=== PATIENT | male | born 1960 | race Caucasian/White ===

== ENCOUNTER 2019-07-13 07:31 | Emergency (ER) | payer OTHER, MEDICAID ==
[~2019-07-13] VITALS: Ht 157.5 cm; Wt 59.4 kg
[2019-07-13 07:45] VITALS: BP_SYST 119
[2019-07-13 08:48] VITALS: BP_SYST 119
== END 2019-07-13 08:48 | disposition home or self-care (01) ==
LOC: SED 07:31
DX: H10.89 Other conjunctivitis (principal)
CPT/HCPCS: 99283

== ENCOUNTER 2019-08-26 08:55 | Inpatient (IN) | payer OTHER, MEDICAID ==
[~2019-08-26] VITALS: Ht 152.4 cm; Wt 64.9 kg
--- NOTE | 2019-08-26 09:22 | NUR ---
Patient to ER bed 5 to gown for evaluation. Side rails up.
[2019-08-26 09:25] VITALS: BP_SYST 128
--- NOTE | 2019-08-26 09:33 | NUR ---
Patient is nonverbal, no visual tracking. Caregivers at bedside. They report patient 2 episodes of vomiting last night, 1 episode this morning, reduced appetite, reduced activity.
--- NOTE | 2019-08-26 09:55 | NUR ---
ER Dr. Turner at bedside examining patient.
[2019-08-26 11:01] LABS: BILIRUBIN,URINE NEGATIVE (NEGATIVE); BLOOD, URINE 3+ (NEGATIVE); COLOR,URINE YELLOW (YELLOW); GLUCOSE,URINE NEGATIVE (NEGATIVE); KETONES,URINE NEGATIVE (NEGATIVE); LEUKOCYTE ESTERASE ,URINE 3+ (NEGATIVE); NITRITE, URINE POSITIVE (NEGATIVE); PROTEIN URINE 2+ (NEGATIVE); UROBILINOGEN,URINE 0.2 (0.2-1.0)
[2019-08-26 11:04] LABS: CLARITY/URINE HAZY (CLEAR)
--- NOTE | 2019-08-26 11:08 | NUR ---
Blood samples hemolyzed, phlebotomy at bedside to redraw.
[2019-08-26 11:09] LABS: BACTERIA,URINE MODERATE /HPF (None Seen); RBC,URINE 80-100 /HPF (0-3); WBC,URINE >100 /HPF (0-3)
[2019-08-26 11:10] LABS: MUCUS,URINE 1+ /LPF (None Seen)
[2019-08-26 11:48] LABS: CALCIUM 9.8 mg/dL (8.4-11.0); POTASSIUM 4.1 mmol/L (3.5-5.1)
[2019-08-26 11:49] LABS: ALBUMIN 2.5 g/dL (3.4-4.8); CREATININE 0.59 mg/dL (0.55-1.30); TOTAL BILIRUBIN 0.7 mg/dL (0.0-1.0)
[2019-08-26 12:06] LABS: HEMATOCRIT 38.9 % (36-54); HEMOGLOBIN 12.8 g/dL (14.0-18.0); MEAN CORPUSCULAR HEMOGLOBIN 30 pg (27-31); MEAN CORPUSCULAR HGB CONC 33 % (32-36); MEAN CORPUSCULAR VOLUME 89 fL (79.0-98.0); PLATELET COUNT (AUTO) 90 K/uL (130-430); RED BLOOD CELL COUNT(AUTO) 4.35 MIL/uL (4.2-6.2); RED CELL DISTRIBUTION WIDTH 15.8 % (9.0-15.0); WHITE BLOOD COUNT (AUTO) 22.5 K/uL (4.8-10.8)
[2019-08-26 12:16] LABS: INR 1.1 (0.80-1.20); PROTHROMBIN TIME 10.7 SECS (9.5-12.5)
[2019-08-26] MEDS ORDERED: POLY17PO4 PO (12:17)
[2019-08-26] MEDS ORDERED: CALC-823 PO (12:17)
[2019-08-26] MEDS ORDERED: TAMS-11 PO (12:17)
[2019-08-26] MEDS ORDERED: LOSA50TA3 PO (12:17)
[2019-08-26] MEDS ORDERED: HYDR12.55 PO (12:17)
[2019-08-26] MEDS ORDERED: LEVO25TA7 PO (12:17)
[2019-08-26] MEDS ORDERED: cefTRIAXone 1 GM IVPB PREMIX 50 ML IV ONE (12:30)
[2019-08-26] MEDS ORDERED: NACL 0.9% 1,000 ML IV ONE (12:30)
--- NOTE | 2019-08-26 12:35 | NUR ---
Patient will be admitted to care of Dr. Harden. Admitted to telemetry unit. Waiting for room assignment. Belongings list completed. Complete and up to date summary report printed. SBAR report to be given at bedside with opportunity for questions.
--- NOTE | 2019-08-26 12:36 | NUR ---
character impersonator Layla Jung , staffing recruiter of [facility] in [place].
[2019-08-26 12:45] LABS: BAND % (MANUAL) 3 % (0-6)
[2019-08-26 12:46] LABS: ATYPICAL LYMPHOCYTES % 0 % (0-0); BASOPHILS % (MANUAL) 0 % (0-2); EOSINOPHILS % (MANUAL) 0 % (0-7); LYMPHOCYTES % (MANUAL) 4 % (20-46); MONOCYTES % (MANUAL) 1 % (0-11)
--- NOTE | 2019-08-26 12:53 | NUR ---
Transfer to 106A via ACLS protocol. Licensed nurse present. IV present no signs or symptoms of infiltration.
--- NOTE | 2019-08-26 13:09 | NUR ---
ADMISSION NOTE Received patient from ER via jennifer, received report from DIGNA MUSA. Patient admitted with diagnosis of . PATIENT IS NON VERBAL AND CONTRACTED
--- NOTE | 2019-08-26 13:30 | NUR ---
ADMISSION: RECEIVED PT AWAKE, NON-VERBAL, MENTALLY DELAYED, DX:RISK FOR FLUID VOLUME DEFICIT, R/T DEHYDRATION, UTI, UROSEPSIS, VSS, NO S/S OF DISTRESS, SEPSIS PROTOCOL STARTED IN ER, PT RESPONDING WELL, BREATH SOUNDS ARE RHONCHI, BREATHING UNLABORED, SATURATING 98% ORA, IV SITE INTACT, PATENT, NO REDNESS OR SWELLING, BILATERAL LOWER EXTREMITIES WITH EDEMA 3+, REPOSITIONED IN BED AND MADE COMFORTABLE, CALL LIGHT PLACED WITHIN REACH, WILL CONT' TO MONITOR AND ASSESS.
[2019-08-26 14:02] VITALS: BP_SYST 102
[2019-08-26 15:28] VITALS: BP_SYST 96
[2019-08-26] MEDS ORDERED: ACETAMINOPHEN 650 MG SUPP.RECT RC PRN (16:00)
[2019-08-26] MEDS ORDERED: ENALAPRILAT DIHYDRATE 1.25 MG/ML VIAL IVP PRN (16:00)
--- NOTE | 2019-08-26 16:00 | NUR ---
VISIT: AT BEDSIDE FOR ASSESSMENT OF PT, NEW ORDERS GIVEN, WILL CONT' WITH POC.
[2019-08-26] MEDS ORDERED: FAMOTIDINE PF 20 MG/2 ML VIAL IVP ONE (16:30)
[2019-08-26] MEDS: LEVOFLOXACIN 500 MG/D5W 100 ML IV SCH (17:57)
--- NOTE | 2019-08-26 18:00 | NUR ---
END OF SHIFT: PT SUCTIONED, REPOSITIONED AND MADE COMFORTABLE, NO DISTRESS NOTED, TOLERATING WELL, WILL CONT' TO MONITOR, WILL ENDORSE TO SECOND HELPER NURSE.
[2019-08-26] MEDS: D5NS 1,000 ML IV SCH ×2 (18:06→22:30)
--- NOTE | 2019-08-26 19:15 | NUR ---
OPENING NOTES Pt and endorsement received from day shift nurse. Pt is resting in bed with both eyes closed, with visible chest rise and fall with non-labored breathing noted. No moaning or grimacing noted. No signs of acute distress or SOB noted. Pt on IVF with D5NS at 100ml/hr and infusing well on left FA G22. Safety precautions in place with 3 side rails up, wheels locked, bed alarm on and in lowest level. Call light with pt. Will continue to monitor.
[2019-08-26 22:14] VITALS: BP_SYST 109
--- NOTE | 2019-08-26 22:15 | NUR ---
INCONTINENCE CARE Incontinence care rendered with MARY ANNE Tena and pt tolerated well. Pt moans when being turned and cleaned only. No signs of acute distress noted. Pt is non-verbal and does not follow commands. IVF infusing well. Safety precautions in place and call light with pt. Will continue to monitor.
--- NOTE | 2019-08-27 00:30 | NUR ---
ROUNDS Pt is resting in bed with both eyes closed, with visible chest rise and fall with non-labored breathing noted. IVF infusing well. No moaning or grimacing noted. No signs of acute distress noted. Safety precautions in place. Will continue to monitor.
[2019-08-27 02:17] VITALS: BP_SYST 114
[2019-08-27] MEDS: D5NS 1,000 ML IV SCH (02:40)
--- NOTE | 2019-08-27 03:00 | NUR ---
ROUNDS Pt is resting in bed with both eyes closed, with visible chest rise and fall with non-labored breathing noted. IVF infusing well. No signs of acute distress noted. Breathing is even and non-labored. No needs at this time. Safety precautions in place. Will continue to monitor.
--- NOTE | 2019-08-27 06:30 | NUR ---
CLOSING NOTES Pt is resting in bed with both eyes closed, with visible chest rise and fall with non-labored breathing noted. No moaning or grimacing noted. No signs of acute distress or SOB noted. IVF infusing well. All needs attended throughout the shift. Safety precautions in place with 3 side rails up, wheels locked, bed alarm on and in lowest level. Call light with pt. Will endorse to day shift nurse.
[2019-08-27 07:19] LABS: BASOPHILS # (AUTO) 0.1 K/uL (0.0-0.2); BASOPHILS % (AUTO) 0.5 % (0.0-2.0); EOSINOPHILS # (AUTO) 0.1 K/uL (0.0-0.4); EOSINOPHILS % (AUTO) 0.4 % (0.0-4.0); HEMATOCRIT 34.2 % (36-54); HEMOGLOBIN 11.3 g/dL (14.0-18.0); LYMPHOCYTES # (AUTO) 0.5 K/uL (1.0-5.5); MEAN CORPUSCULAR HEMOGLOBIN 30 pg (27-31); MEAN CORPUSCULAR HGB CONC 33 % (32-36); MEAN CORPUSCULAR VOLUME 91 fL (79.0-98.0); MONOCYTES # (AUTO) 0.2 K/uL (0.0-1.0); MONOCYTES % (AUTO) 1.6 % (1.7-9.3); NEUTROPHILS # (AUTO) 11.9 K/uL (1.8-7.7); NEUTROPHILS % (AUTO) 93.5 % (40.0-70.0); PLATELET COUNT (AUTO) 54 K/uL (130-430); RED BLOOD CELL COUNT(AUTO) 3.77 MIL/uL (4.2-6.2); RED CELL DISTRIBUTION WIDTH 15.7 % (9.0-15.0); WHITE BLOOD COUNT (AUTO) 12.7 K/uL (4.8-10.8)
[2019-08-27 07:45] LABS: CALCIUM 8.1 mg/dL (8.4-11.0); CREATININE 0.44 mg/dL (0.55-1.30); THYROID STIMULATING HORMONE 3.16 uIu/mL (0.36-3.74); TOTAL BILIRUBIN 0.2 mg/dL (0.0-1.0)
[2019-08-27 08:00] VITALS: BP_SYST 101
--- NOTE | 2019-08-27 08:00 | NUR ---
initial notes rec patient awake but non verbally responsive. ivf infusing well on the l forearm. no infiltration noted. resp easy and unlabored. no sob noted. contracted both upper and lower extremities. bed to the lowest positon and side rails up and locked.
--- NOTE | 2019-08-27 09:00 | NUR ---
Nutrition Update Malik Scale 13 noted. Pt admitted for urosepsis, UTI, dehydration. Diet: NPO BMI: 27.9 kg/m2 RD to follow per nutrition care standards.
--- NOTE | 2019-08-27 09:11 | NUR ---
Pulmo consult called: for Dr. Lo, regarding pleural effusion, ordered by Dr. Harden, spoke with Cristela.
[2019-08-27] MEDS: LEVOFLOXACIN 500 MG/D5W 100 ML IV SCH (09:14)
[2019-08-27] MEDS: FAMOTIDINE PF 20 MG/2 ML VIAL IVP SCH (09:15)
--- NOTE | 2019-08-27 10:30 | NUR ---
rounds pt was taken for ct spine via [facility]. seen by hema and with orders.
[2019-08-27 11:18] VITALS: BP_SYST 104
[2019-08-27] MEDS ORDERED: PIPERACILLIN/TAZO 3.375/DEX-IS 50 ML IV SCH (12:00)
--- NOTE | 2019-08-27 12:00 | NUR ---
rounds turned repositioned for comfort. still waiting for tami to swallow eval patient. no osb nmoted. resting comfortably.
--- NOTE | 2019-08-27 14:00 | NUR ---
rounds sleeping at intervals .turned repositioned for comfort.
--- NOTE | 2019-08-27 14:52 | NUR ---
DC plan:I called pt's mom Rafaela EspinoYemjihd-[phone]-she is agreeable to pt returning to [facility] facility-she said usually Layla handles everything re: pt's care--I explained pt may need residential facility and if so,she has choice of vendor and we would let her know which facility pt would go to (if needed). I called Layla Guzmanpcion [phone]-she is pt's [facility] case manager and indicates [facility] an [facility], not [facility], and they can do IV abx 1-2 times per day if needed. Layla asked that we call her instead of pt's mother, Rafaela, and she will relay information to Rafaela. She indicates Rafaela is elderly w/health issues. [facility] fax# is [phone]--SVITLANA MUSA
[2019-08-27 15:25] VITALS: BP_SYST 110
--- NOTE | 2019-08-27 16:00 | NUR ---
rounds continue to sleep at intervals and resting comfortably.
[2019-08-27] MEDS: CEFEPIME 1 GM in D5W 50 ML IV SCH ×2 (16:36→20:43)
[2019-08-27] MEDS: D5/0.45 NS 1,000 ML IV SCH ×2 (16:36→23:00)
[2019-08-27] MEDS: metroNIDAZOLE 500 mg/NS 100 ML IV SCH ×2 (16:43→22:27)
--- NOTE | 2019-08-27 19:00 | NUR ---
closing notes sleep at intervals. no sob noted. call light within reached. turned repositioned at intervals.
--- NOTE | 2019-08-27 19:45 | NUR ---
OPENING NOTES Received bedside report from DIMPLE Mcdowell. Patient is resting in bed, eyes closed, breathing evenly and nonlabored. Patient has an IV on left forearm 22g, IVF running, IV site patent and benign, no s/s of infiltration or infection noted. Educated patient construction person light system, patient unable to respond understanding due to being nonverbal. Bed is armed, locked and at lowest position. Fall/safety precautions. Will continue to monitor.
--- NOTE | 2019-08-27 20:45 | NUR ---
MEDICATIONS/ROUNDS Patient is resting in bed, eyes closed, breathing evenly and nonlabored. Educated patient on medication, patient unable to state understanding due to being nonverbal. Administered medication, patient tolerated it well. No s/s of distress at this time, no other needs at this time. Fall/safety precautions.
--- NOTE | 2019-08-28 00:30 | NUR ---
ROUNDS Patient resting quietly, breathing is even and unlabored, remains on room air, vital signs stable, repositioned and turned with pillow support, safety measures in place, will monitor.
[2019-08-28] MEDS: IPRATROPIUM/ALBUTEROL SULFATE 3 ML AMPUL.NEB (DUONEB) INH SCH ×4 (01:30→20:54)
[2019-08-28 01:46] VITALS: BP_SYST 104
[2019-08-28 01:49] VITALS: BP_SYST 101
--- NOTE | 2019-08-28 02:40 | NUR ---
ROUNDS Patient asleep, breathing is even and unlabored, repositioned and turned, IVF continues to infuse, safety measures in place, will closely monitor.
--- NOTE | 2019-08-28 04:17 | NUR ---
ROUNDS Patient resting in bed, eyes closed, breathing is even and unlabored. IVF infusing, no s/s of distress at this time. Fall/safety precautions.
[2019-08-28] MEDS: metroNIDAZOLE 500 mg/NS 100 ML IV SCH ×3 (05:30→23:02)
--- NOTE | 2019-08-28 05:57 | NUR ---
ROOM CHANGE Patient moved to room 132 B, all belongings accounted for, fall and safety measures in place.
--- NOTE | 2019-08-28 06:27 | NUR ---
CLOSING NOTE Patient asleep, breathing is even and unlabored, remains on room air, due antibiotics administered, IV line to left forearm intact and patent, no signs of infiltration noted, incontinence care provided, repositioned and turned with pillow support, safety measures maintained through out the shift, will continue to monitor until report given to am nurse.
[2019-08-28 07:03] LABS: CALCIUM 7.6 mg/dL (8.4-11.0); CREATININE 0.4 mg/dL (0.55-1.30); TOTAL BILIRUBIN 0.2 mg/dL (0.0-1.0)
[2019-08-28 07:04] LABS: BASOPHILS % (AUTO) 0.2 % (0.0-2.0); EOSINOPHILS # (AUTO) 0.1 K/uL (0.0-0.4); EOSINOPHILS % (AUTO) 1.1 % (0.0-4.0); HEMATOCRIT 30.2 % (36-54); HEMOGLOBIN 10.2 g/dL (14.0-18.0); LYMPHOCYTES # (AUTO) 0.6 K/uL (1.0-5.5); MEAN CORPUSCULAR HEMOGLOBIN 31 pg (27-31); MEAN CORPUSCULAR HGB CONC 34 % (32-36); MEAN CORPUSCULAR VOLUME 90 fL (79.0-98.0); MONOCYTES # (AUTO) 0.2 K/uL (0.0-1.0); MONOCYTES % (AUTO) 2.6 % (1.7-9.3); NEUTROPHILS # (AUTO) 7.3 K/uL (1.8-7.7); NEUTROPHILS % (AUTO) 89.1 % (40.0-70.0); RED BLOOD CELL COUNT(AUTO) 3.35 MIL/uL (4.2-6.2); RED CELL DISTRIBUTION WIDTH 15.8 % (9.0-15.0); WHITE BLOOD COUNT (AUTO) 8.2 K/uL (4.8-10.8)
[2019-08-28 07:16] LABS: PLATELET COUNT (AUTO) 41 K/uL (130-430)
[2019-08-28 08:17] VITALS: BP_SYST 128
--- NOTE | 2019-08-28 08:35 | NUR ---
INITIAL ROUNDS Received pt AAox1, non-verbal. Pt with no s/s resp distress, noted pt just suctioned moderate amount of thin, clear liquid by RT. Pt contracted BUE and BLE, skin intact. Pt repositioned with pillow support and heels off-loaded for skin care and comfort. Pt on air mattress. HOB elevated for aspiration precautions. Bed alarm on, side rails up x3 and room across from nursing station for safety. Call light within reach.
--- NOTE | 2019-08-28 09:08 | NUR ---
CONSULTATION PAGED/CALLED Reason for Consultation: LOW PLATELETS Person Who was Notified: LOY Consulting Physician: Liability Claims Manager Specialty: Ordering Physician:
[2019-08-28] MEDS: CEFEPIME 1 GM in D5W 50 ML IV SCH ×2 (10:03→22:23)
[2019-08-28] MEDS: D5/0.45 NS 1,000 ML IV SCH ×2 (10:03→23:21)
[2019-08-28] MEDS: FAMOTIDINE PF 20 MG/2 ML VIAL IVP SCH (10:03)
--- NOTE | 2019-08-28 11:47 | NUR ---
ROUNDS/IV Pt resting quietly in bed with no s/s resp distress, no s/s pain or discomfort. Pt's IV on LFA not flushing anymore-IV removed. New IV placed to left hand, 22 gauge. pt tolerated well. All precautions remain in place.
[2019-08-28 12:26] VITALS: BP_SYST 99
--- NOTE | 2019-08-28 13:41 | NUR ---
CALLED/LEFT MESSAGE SPEECH THERAPIST HENRI FOR SWALLOW EVAL.
--- NOTE | 2019-08-28 14:41 | NUR ---
ROUNDS/SWALLOW TOMASA Zaragoza from Speech Therapy saw pt, did her evaluation and stated to keep the pt NPO, pt unable to swallow at all. Pt had deep suction again by RT. Pt with no s/s resp distress, no s/s pain or discomfort. All precautions remain in place.
--- NOTE | 2019-08-28 15:03 | NUR ---
S.T. SWALLOW EVAL SWALLOW EVAL COMPLETED. PT PRESENTS W/ SEV PRE-ORAL, ORAL, AND PHARYNGEAL DYSPHAGIA W/ DECREASED BOLUS AWARENESS/ROTARY DRIER, POOR BOLUS MANIPULATION AND TRANSFER WITH HYPERSENSITIVE GAG RESULTING ON COUGHING ON BOLUS. IN ADDITION, PT HAS DIFFICULTY MANAGING OWN SECRETION.S PT IS AT VERY HIGH RISK FOR ASPIRATION, MALNUTRITION, AND DEHYDRATION. REC: NPO - ALTERNATIVE METHOD FOR FEEDING. NURSE ALTAGRACIA NOTIFIED. G8996 CN G8997 CN G8998 CN NOMS LEVEL 2 Addendum: 08/29/19 at 1625 by Mila Robbins NOMS LEVEL SHOULD READ: G8996 CM G8997 CM G8998 CM NOMS LEVEL 2
--- NOTE | 2019-08-28 16:20 | NUR ---
Dietitian Recommendations * Recommend GI consult for PEG placement/EN support/long-term nutrition LP, RD Please refer to Nutrition Assessment for details. Addendum: 08/28/19 at [address] Amended: Links added.
[2019-08-28] MEDS ORDERED: POTASSIUM CHLORIDE 40 MEQ in NS 250 ML IV ONE (16:45)
--- NOTE | 2019-08-28 17:35 | NUR ---
MD VISIT Dr. Harden here to see pt-MD updated on swallow eval results, labs. MD to place orders.
--- NOTE | 2019-08-28 17:42 | NUR ---
CONSULTATION PAGED/CALLED Reason for Consultation: PEG,FAILED SWALLOW EVAL Person Who was Notified: JUSTIN Consulting Physician: Welding Machine Operator Helper Gas Specialty: GI Ordering Physician:
--- NOTE | 2019-08-28 18:31 | NUR ---
CLOSING NOTE Pt resting quietly in bed with no s/ resp distress, no s/s pain or distress. IVF infusing well to left hand at ordered rate with no s/s infiltration to site. Aspiration, skin and safety precautions remain in place.
--- NOTE | 2019-08-28 18:41 | NUR ---
Ultra Sound scale technician at bedside with pt performing an abdominal U.S.
[2019-08-28 19:40] VITALS: BP_SYST 103
--- NOTE | 2019-08-28 19:40 | NUR ---
INITIAL NOTES PATIENT IS LAYING IN BED AND STABLE. NO S/S OF RESPIRATORY DISTRESS NOTED. CALL LIGHT EDUCATED WAS UNSUCCESSFUL AT THIS TIME. WILL FREQUENTLY MONITOR. BED IS LOCKED, ALARMED, AND AT THE LOWEST POSITION. PLAN OF CARE IS DISCUSSED WITH PATIENT AT THIS TIME. FALL, SAFETY, AND RESPIRATOR PRECAUTIONS WILL BE IN PLACED THROUGHOUT THE SHIFT.
--- NOTE | 2019-08-28 21:40 | NUR ---
ROUNDING PATIENT IS LAYING IN BED AND STABLE. NO S/S OF RESPIRATORY DISTRESS NOTED. CALL LIGHT IN REACH. BED IS LOCKED, ALARMED, AND AT THE LOWEST POSITION. WILL CONTINUE TO MONITOR.
--- NOTE | 2019-08-28 23:40 | NUR ---
ROUNDING PATIENT IS LAYING IN BED AND STABLE. REORIENTED PATIENT AT THIS TIME. NO S/S OF RESPIRATORY DISTRESS NOTED. CALL LIGHT IN REACH. BED IS LOCKED, ALARMED, AND AT THE LOWEST POSITION. WILL CONTINUE TO MONITOR.
[2019-08-29 00:16] VITALS: BP_SYST 147
--- NOTE | 2019-08-29 01:40 | NUR ---
ROUNDING/IV CHANGE PATIENT IV WAS INFILTRATED AT THIS TIME. PATIENT HAND IS SWOLLEN. IV IS DC. IV IS TIP IS INTACT. PATIENT IS STABLE. NEW IV IS INSERTED ON LEFT ARM. IV HAS GOOD BLOOD RETURN, FLUSHED WELL, AND IS RUNNING FLUIDS. PATIENT TOLERATED WELL. NO S/S OF RESPIRATORY DISTRESS NOTED. CALL LIGHT IN REACH. BED IS LOCKED, ALARMED, AND AT THE LOWEST POSITION. WILL CONTINUE TO MONITOR.
[2019-08-29] MEDS: IPRATROPIUM/ALBUTEROL SULFATE 3 ML AMPUL.NEB (DUONEB) INH SCH ×4 (01:48→19:00)
--- NOTE | 2019-08-29 03:19 | NUR ---
ROUNDING PATIENT WAS CHANGED AT THIS TIME. PATIENT IS REPOSITION FOR COMFORT. PATIENT IS STABLE. NO S/S OF RESPIRATORY DISTRESS NOTED. CALL LIGHT IN REACH. BED IS LOCKED, ALARMED, AND AT THE LOWEST POSITION. WILL CONTINUE TO MONITOR.
[2019-08-29] MEDS: metroNIDAZOLE 500 mg/NS 100 ML IV SCH ×3 (05:25→22:04)
--- NOTE | 2019-08-29 06:37 | NUR ---
CLOSING NOTES PATIENT IS STABLE IN BED. NO S/S OF RESPIRATORY DISTRESS NOTED. CALL LIGHT IN REACH. BED IS LOCKED, ALARMED, AND AT THE LOWEST POSITION. FALL, SAFETY, ASPIRATION, AND RESPIRATORY PRECAUTIONS HAS BEEN PLACED THROUGHOUT THE SHIFT. DIMPLE BOYLE. FROM [facility] CALLED REGARDING PLAN OF CARE. WILL ENDORSE TO AM NURSE. WILL CONTINUE TO MONITOR UNTIL REPORT IS GIVEN TO AM NURSE BY BEDSIDE.
[2019-08-29 06:42] LABS: BASOPHILS % (AUTO) 0.4 % (0.0-2.0); EOSINOPHILS % (AUTO) 0.5 % (0.0-4.0); HEMATOCRIT 29.8 % (36-54); LYMPHOCYTES # (AUTO) 0.5 K/uL (1.0-5.5); LYMPHOCYTES % (AUTO) 7.7 % (20.5-51.5); MEAN CORPUSCULAR HEMOGLOBIN 30 pg (27-31); MEAN CORPUSCULAR HGB CONC 34 % (32-36); MEAN CORPUSCULAR VOLUME 91 fL (79.0-98.0); MONOCYTES # (AUTO) 0.1 K/uL (0.0-1.0); MONOCYTES % (AUTO) 1.8 % (1.7-9.3); NEUTROPHILS % (AUTO) 89.6 % (40.0-70.0); RED BLOOD CELL COUNT(AUTO) 3.29 MIL/uL (4.2-6.2); RED CELL DISTRIBUTION WIDTH 16.5 % (9.0-15.0); WHITE BLOOD COUNT (AUTO) 6.7 K/uL (4.8-10.8)
[2019-08-29 06:46] LABS: CALCIUM 7.6 mg/dL (8.4-11.0); CREATININE 0.39 mg/dL (0.55-1.30); POTASSIUM 3.1 mmol/L (3.5-5.1); TOTAL BILIRUBIN 0.1 mg/dL (0.0-1.0)
[2019-08-29 07:10] LABS: PLATELET COUNT (AUTO) 39 K/uL (130-430)
[2019-08-29 08:00] VITALS: BP_SYST 119
--- NOTE | 2019-08-29 08:00 | NUR ---
OPENS EYES, DONT TRACK. SB ON MONITOR. IV ON LEFT FA, #22, INFUSED WITH IVF, SITE INTACT AND PATENT. CALL LIGHT IN PLACE, BED LOCKED AT THE LOWEST POSITION, WILL CONTINUE TO MONITOR.
[2019-08-29] MEDS: CEFEPIME 1 GM in D5W 50 ML IV SCH ×2 (09:07→22:03)
[2019-08-29] MEDS: FAMOTIDINE PF 20 MG/2 ML VIAL IVP SCH (09:07)
--- NOTE | 2019-08-29 10:00 | NUR ---
PATIENT IS TURNED AND REPOSITIONED FOR COMFORT. TOLERATED WITHOUT DISTRESS NOTED.
--- NOTE | 2019-08-29 12:00 | NUR ---
PATIENT IS IN BED. NO S/S OF RESPIRATORY DISTRESS NOTED. CALL LIGHT IN REACH. WILL CONTINUE TO MONITOR.
[2019-08-29 12:27] VITALS: BP_SYST 137
--- NOTE | 2019-08-29 14:10 | NUR ---
PATIENT IS TURNED AND REPOSITIONED FOR COMFORT.
[2019-08-29] MEDS ORDERED: POTASSIUM CHLORIDE 40 MEQ in NS 250 ML IV ONE (15:00)
--- NOTE | 2019-08-29 16:22 | NUR ---
S.T. SWALLOW EVAL (REPEAT) SWALLOW EVAL COMPLETED. PT PRESENTS W/ SEV PRE-ORAL, ORAL, AND PHARYNGEAL DYSPHAGIA CHARACTERIZED BY DECREASED P.O. AWARENESS, POOR BOLUS WASTEWATER PROJECT ENGINEER, POOR BOLUS MANIPULATION AND TRANSFER, SPITTING OUT BOLUS, AND COUGHING ON 1/2 TSP HONEY THICK LIQUIDS. PT ALSO HAS DIFFICULTY MANAGING OWN SECRETIONS. PT IS AT VERY HIGH RISK FOR ASPIRATION, MALNUTRITION, AND DEHYDRATION IF PLACED ON P.O. REC: CONTINUE STRICT NPO. ALTERNATIVE METHOD FOR FEEDING. NURSE JOYCE AND DR. CONTI NOTIFIED. G8996 CM G8997 CM G8998 CM NOMS LEVEL 2
[2019-08-29 16:30] VITALS: BP_SYST 103
[2019-08-29] MEDS: KCL 20 mEq in D5/0.45NS 1000mL 1,000 ML IV SCH (17:46)
--- NOTE | 2019-08-29 19:40 | NUR ---
INITIAL ASSESSMENT/RAPID RESPONSE. PATIENT IS UNSTABLE. PATIENT'S SPO2 WAS 80%. RT WAS CALLED TO BED SIDE AND RAPID WAS CALLED WELL. PATIENT WAS SUCTIONED AND BIPAP WAS PLACED. MD WILL BE CALLED. CHARGE NURSE ROYAL AND CONDUIT REAMER OPERATOR JOHNNY GOEL. Addendum: 08/30/19 at 0006 by Maria R Sandoval RN PATIENTS VITAL WERE BLOOD PRESSURE: 121/63. HEART RATE 64. RESPIRATION RATE OF 20. SPO2 OF 80%.
--- NOTE | 2019-08-29 19:53 | NUR ---
PAGE PAGED DOCTOR CONTI FOR CHANGE OF CONDITION
--- NOTE | 2019-08-29 20:23 | NUR ---
2ND PAGE PAGED DOCTOR GALLITO
--- NOTE | 2019-08-29 20:55 | NUR ---
TRANSFERRED TO ICU PATIENT IS TRANSFERRED TO ICU. REPORT GIVEN TO DIMPLE HINKLE. BY BEDSIDE.
--- NOTE | 2019-08-29 20:55 | NUR ---
RECEIVED PT FROM [facility], POST NOODLE MAKER, ON BIPAP VIA BED.REPOSITIONED FOR COMFORT, HAD SMALL AMOUNT OF BROWN STOOL, CARE DONE AND PLACED PT ON SEMI-FOWLERS POSITION.SOUNDS VERY CONGESTED, RT AT BEDSIDE AND DEEP SUCTIONING DONE WITH RELIEF.O2 SAT- 100%
--- NOTE | 2019-08-29 21:30 | NUR ---
PLACED CALL TO DR THURSTON AND UPDATED ON PT CONDITION AND GAVE ORDER.DR CONTI CALLED-IN AND UPDATED ON PT CONDITION AND ALSO GAVE ORDER.
--- NOTE | 2019-08-29 21:30 | NUR ---
PT CONSTANTLY TAKING-OFF BIPAP MASK AND THE NEED FOR RESTRAINTS IS NECESSARY. SOFT WRIST RESTRAINTS APPLIED OVER LEFT WRIST.RIGHT UPPER EXT IS CONTRACTED AND NOT ABLE TO PULL ANYTHING.
--- NOTE | 2019-08-29 21:30 | NUR ---
PAGERachell CALLED DR. THURSTON [phone] SPOKE WITH ROB
[2019-08-29 22:00] VITALS: BP_SYST 143
--- NOTE | 2019-08-29 22:33 | NUR ---
PAGERachell CALLED DR. THURSTON [phone] SPOKE WITH ROB
[2019-08-29 23:00] VITALS: BP_SYST 115
--- NOTE | 2019-08-29 23:00 | NUR ---
WARMING BLANKET PLACED WITH RECTAL PROBE.FIO2 DOWN TO 50%
[2019-08-30] VITALS (24 sets, daily range): BP systolic 100–162
--- NOTE | 2019-08-30 | NUR ---
FIO2 down to 40%.
--- NOTE | 2019-08-30 00:40 | NUR ---
O2 SAT down to 84%. Placed back to 100% FIO2.
[2019-08-30] MEDS: IPRATROPIUM/ALBUTEROL SULFATE 3 ML AMPUL.NEB (DUONEB) INH SCH ×4 (01:31→19:51)
--- NOTE | 2019-08-30 03:00 | NUR ---
FIO2 down to 90%.
--- NOTE | 2019-08-30 05:30 | NUR ---
Inserted daugherty cath FR#16 aseptically. Pt tolerated well, however, unable to obtain any output. Bladder scanner done. Resulted with 350 mL of urine in bladder. Will maintain daugherty cath and will observe further.
--- NOTE | 2019-08-30 05:45 | NUR ---
FIO2 down to 80%.
[2019-08-30] MEDS: metroNIDAZOLE 500 mg/NS 100 ML IV SCH ×3 (05:59→21:53)
[2019-08-30] MEDS: KCL 20 mEq in D5/0.45NS 1000mL 1,000 ML IV SCH ×2 (06:00→17:09)
--- NOTE | 2019-08-30 06:30 | NUR ---
Still no urine output noted. Some bleeding noted in the meatus. Will endorse to next shift.
[2019-08-30 06:41] LABS: BASOPHILS % (AUTO) 0.2 % (0.0-2.0); EOSINOPHILS # (AUTO) 0.1 K/uL (0.0-0.4); EOSINOPHILS % (AUTO) 1.3 % (0.0-4.0); HEMATOCRIT 30.6 % (36-54); HEMOGLOBIN 10.1 g/dL (14.0-18.0); LYMPHOCYTES # (AUTO) 0.5 K/uL (1.0-5.5); LYMPHOCYTES % (AUTO) 9.8 % (20.5-51.5); MEAN CORPUSCULAR HEMOGLOBIN 30 pg (27-31); MEAN CORPUSCULAR HGB CONC 33 % (32-36); MEAN CORPUSCULAR VOLUME 90 fL (79.0-98.0); MONOCYTES # (AUTO) 0.1 K/uL (0.0-1.0); MONOCYTES % (AUTO) 1.8 % (1.7-9.3); NEUTROPHILS # (AUTO) 4.6 K/uL (1.8-7.7); NEUTROPHILS % (AUTO) 86.9 % (40.0-70.0); RED CELL DISTRIBUTION WIDTH 16.2 % (9.0-15.0); WHITE BLOOD COUNT (AUTO) 5.3 K/uL (4.8-10.8)
[2019-08-30 06:58] LABS: PLATELET COUNT (AUTO) 42 K/uL (130-430)
[2019-08-30 07:12] LABS: ALBUMIN 2.1 g/dL (3.4-4.8); CALCIUM 7.5 mg/dL (8.4-11.0); CREATININE 0.34 mg/dL (0.55-1.30); POTASSIUM 3.7 mmol/L (3.5-5.1); TOTAL BILIRUBIN 0.2 mg/dL (0.0-1.0)
--- NOTE | 2019-08-30 07:15 | NUR ---
Shift Report Received shift report from night RN using SBAR.
--- NOTE | 2019-08-30 07:30 | NUR ---
MD Rounds Dr Schmidt bedside. Orders received.
--- NOTE | 2019-08-30 07:30 | NUR ---
AM Assessment Pt sleeping with no signs of distress. On BIPAP 100% 14/6 with backup of 18. Cross catheter is empty with no prior urine output. Will flush and irrigate with sterile water.
--- NOTE | 2019-08-30 08:30 | NUR ---
Called Diane Espino for telephone consent for PICC line. Second nurse TAMIE MUSA to confirm.
--- NOTE | 2019-08-30 09:00 | NUR ---
Cross irrigated and flushed with 60cc of sterile water using sterile technique. Immediate flowback of 200cc of flaco urine. Will continue to monitor.
[2019-08-30] MEDS: FAMOTIDINE PF 20 MG/2 ML VIAL IVP SCH (09:02)
[2019-08-30] MEDS: CEFEPIME 1 GM in D5W 50 ML IV SCH ×2 (09:02→21:08)
--- NOTE | 2019-08-30 10:29 | NUR ---
Paged Dr. Cota for consult, spoke to Rossy at the exchange.
--- NOTE | 2019-08-30 11:00 | NUR ---
MD Rounds Dr Harden beside. Orders received.
[2019-08-30] MEDS ORDERED: POTASSIUM CHLORIDE 20 MEQ/PKT PACKET NG ONE (12:45)
--- NOTE | 2019-08-30 13:30 | NUR ---
Called Dr Harden per exchange for orders.
--- NOTE | 2019-08-30 13:30 | NUR ---
Performed CHG bath, linen change, perineal, & perianal care. PT had 1 BM. Tolerated well.
--- NOTE | 2019-08-30 14:10 | NUR ---
Telephone order from Dr Harden received.
--- NOTE | 2019-08-30 14:45 | NUR ---
PICC line nurse Juaquin MUSA bedside with PT.
--- NOTE | 2019-08-30 14:59 | NUR ---
Nutrition F/U RD reviewed pt's current EMR record including diet Hx, physician notes, nursing notes, pertinent labs/meds/procedures, care trends, and care activity. Admission Dx: Urosepsis, UTI, dehydration PMH: HTN, hypothyroidism, developmental delay per physician notes Current Diet Order/Nutrition Support: NPO x4 days Subjective Info: Pt seen resting in bed, +bipap w/ no nutrition support infusing. Pt was sent to ICU d/t respiratory failure per EMR records. Per physician notes, plans for PEG placement 09/01/19 if platelets increase and stable versus TPN per EMR. RN reported that pt has orders for PICC line placement, but no definitive plans for TPN support yet. Pt had a repeat swallow eval 08/29/19; ST rec was for strict NPO; alternative method for feeding per EMR. RN stated pt's skin remains intact. Bedscale wt taken: 167# -- likely skewed d/t linens. Estimated Energy Expenditure (kcals/day) 7492-2545 kcal/day (30-35 kcal/kg Adj IBW for sepsis) Estimated Protein Required (g/day) 78-104 gm/day (1.5-2 gm/kg Adj IBW for sepsis) Estimated Fluid Required (l/day) 1.6-1.8 L/day (1 ml/kcal/day for maintenance) Problem/Etiology/Signs/Symptoms Inadequate nutritional intakes related to metabolic demands as evidenced by NPO status and estimated nutritional requirements for sepsis. *ongoing Expected Outcomes/Goals - Monitor provision of EN support w/ goal of pt meeting at least 75% of estimated nutritional needs, labs trending WNL, normal GI function, and skin integrity/wt maintenance Dietitian Recommendations * Recommend PEG placement and EN support for long-term nutrition * Consider Vital AF TF formula while in ICU or Jevity 1.2 TF formula if/when medically stable * TPN/PPN within 7 days -- pt has adequate nutrition reserves Follow Up High Risk: F/U in 2-3 days
--- NOTE | 2019-08-30 15:05 | NUR ---
Dietitian Recommendations * Recommend PEG placement and EN support for long-term nutrition * Consider Vital AF TF formula while in ICU or Jevity 1.2 TF formula if/when medically stable * TPN/PPN within 7 days -- pt has adequate nutrition reserves LP, RD Please refer to Nutrition F/U for details.
--- NOTE | 2019-08-30 15:25 | NUR ---
XRay sleep technician bedside with PT. Confirmation of correct placement. Okay to use.
[2019-08-30] MEDS ORDERED: POTASSIUM CHLORIDE 20 MEQ in NS 250 ML IV ONE (15:30)
--- NOTE | 2019-08-30 15:30 | NUR ---
Changed all IV tubing.
--- NOTE | 2019-08-30 16:53 | NUR ---
1600 SUCTION PT. SMALL WHITE THICK BLOOD TINGE SPUTUM 1644 PT DESAT. PLACED ON 80%. PT REPOSITIONED BY RN LEANING TO RIGHT SIDE. SAT 99%. TITRATED FI02 TO 60% @ 1647. RN AWARE. Addendum: 08/30/19 at 1659 by Josseline Ceja RT Amended: Links added.
--- NOTE | 2019-08-30 17:00 | NUR ---
Hourly rounding. No change in Pt status. Will continue to monitor. No signs of pain or distress.
--- NOTE | 2019-08-30 19:05 | NUR ---
Closing notes Provided shift report to night RN using SBAR. Pt resting with possible indication of discomfort. HR 108. Informed night RN. Bed locked and in lowest position.
--- NOTE | 2019-08-30 20:00 | NUR ---
LETHARGIC. ON WHOLE FACE MASK BIPAP /, BUR 18, FIO2 60%. RIGHT NASAL TRUMPET IN PLACE. EXTREMITIES CONTRACTED. EDITH PICC LINE DRSG D/I. LADY SCD'S IN PLACE. MURPHY CATH PATENT DRAINING HAZY PADMINI URINE TO GRAVITY. WARMING BLANKET IN PLACE. SR.
--- NOTE | 2019-08-30 21:00 | NUR ---
TEMP 98.7, WARMING BLANKET OFF.
--- NOTE | 2019-08-30 22:00 | NUR ---
HS CARE. REPOSITIONED.
[2019-08-31] VITALS (29 sets, daily range): BP systolic 83–136
[2019-08-31] MEDS: IPRATROPIUM/ALBUTEROL SULFATE 3 ML AMPUL.NEB (DUONEB) INH SCH ×4 (01:00→19:38)
--- NOTE | 2019-08-31 02:00 | NUR ---
SOUNDLY ASLEEP. TURNED.
--- NOTE | 2019-08-31 04:00 | NUR ---
SLEPT FOR LONG PERIODS OF TIME. VSS. NO DISTRESS NOTED.
[2019-08-31] MEDS: KCL 20 mEq in D5/0.45NS 1000mL 1,000 ML IV SCH ×2 (04:45→11:34)
[2019-08-31 05:09] LABS: BASOPHILS # (AUTO) 0.1 K/uL (0.0-0.2); BASOPHILS % (AUTO) 0.9 % (0.0-2.0); EOSINOPHILS # (AUTO) 0.1 K/uL (0.0-0.4); EOSINOPHILS % (AUTO) 1.7 % (0.0-4.0); HEMATOCRIT 31.5 % (36-54); HEMOGLOBIN 10.4 g/dL (14.0-18.0); LYMPHOCYTES # (AUTO) 0.5 K/uL (1.0-5.5); LYMPHOCYTES % (AUTO) 7.8 % (20.5-51.5); MEAN CORPUSCULAR HEMOGLOBIN 30 pg (27-31); MEAN CORPUSCULAR HGB CONC 33 % (32-36); MEAN CORPUSCULAR VOLUME 90 fL (79.0-98.0); MONOCYTES # (AUTO) 0.1 K/uL (0.0-1.0); MONOCYTES % (AUTO) 2.3 % (1.7-9.3); NEUTROPHILS # (AUTO) 5.3 K/uL (1.8-7.7); NEUTROPHILS % (AUTO) 87.3 % (40.0-70.0); RED BLOOD CELL COUNT(AUTO) 3.51 MIL/uL (4.2-6.2); RED CELL DISTRIBUTION WIDTH 16.4 % (9.0-15.0); WHITE BLOOD COUNT (AUTO) 6.1 K/uL (4.8-10.8)
[2019-08-31 05:18] LABS: PLATELET COUNT (AUTO) 52 K/uL (130-430)
[2019-08-31 05:37] LABS: INR 1.3 (0.80-1.20); PROTHROMBIN TIME 12.6 SECS (9.5-12.5)
[2019-08-31] MEDS: metroNIDAZOLE 500 mg/NS 100 ML IV SCH (05:38)
[2019-08-31 05:55] LABS: ALBUMIN 1.9 g/dL (3.4-4.8); CALCIUM 7.3 mg/dL (8.4-11.0); CREATININE 0.43 mg/dL (0.55-1.30); POTASSIUM 3.9 mmol/L (3.5-5.1); TOTAL BILIRUBIN 0.3 mg/dL (0.0-1.0)
--- NOTE | 2019-08-31 06:00 | NUR ---
SLEPT WELL MOST OF SHIFT. NO SOB NOR DISTRESS NOTED. AM CARE RENDERED. TURNED Q2 HRS. UO ADEQUATE. REMAINS IN GUARDED CONDITION.
--- NOTE | 2019-08-31 07:16 | NUR ---
AT 0710 A.M, RECEIVED NURSING REPORT FROM DAY SHIFT ROYAL Cornejo Addendum: 08/31/19 at 0857 by Antolin Chahal RN AT 0710 A.M, RECEIVED NURSING REPORT FROM DETECTIVE CAPTAIN ROYAL Cornejo
[2019-08-31] MEDS: FAMOTIDINE PF 20 MG/2 ML VIAL IVP SCH (09:00)
[2019-08-31] MEDS: CEFEPIME 1 GM in D5W 50 ML IV SCH (09:01)
[2019-08-31] MEDS ORDERED: HYDROmorphone 1 MG INJ. 1 MG/ML AMPUL ONE (10:19)
[2019-08-31] MEDS ORDERED: ETOMIDATE 20 MG/ 10 ML VIAL (AMIDATE) IVP ONE (10:59)
[2019-08-31] MEDS ORDERED: cefTRIAXone 1 GM in D5W 50 ML IV SCH (11:00)
[2019-08-31] MEDS ORDERED: methylPREDNISolone SOD SUCC 40 MG/ML VIAL IVP SCH (11:00)
[2019-08-31] MEDS ORDERED: methylPREDNISolone SOD SUCC 40 MG/ML VIAL IVP ONE (11:15)
[2019-08-31] MEDS: HYDROmorphone 1 MG INJ. 1 MG/ML AMPUL IM PRN (11:31)
--- NOTE | 2019-08-31 11:40 | NUR ---
AT 1024 A.M, INTUBATION BY Dr. REAGAN , VENTILATOR SETTING : ET TUBE SIZE 7.5, LIP LINE 24 CM, AC 16, TV 500, FIO2 100%, PEEP 5 , FOLLOW UP STAT CHEST X-RAY AND ABG
[2019-08-31] MEDS ORDERED: CLINDAMYCIN 600 mg/50mL D5W 50 ML IV SCH (12:00)
[2019-08-31] MEDS ORDERED: VANCOMYCIN HCL 1 GM/NS PREMIX 250 ML IV ONE (12:30)
--- NOTE | 2019-08-31 12:30 | NUR ---
AT 1205 P.M, SEE PATIENT ORDERED GIVE VANCOMYCIN 1 GM IVPB X ONCE, START MEROPENEM , LEVOPHED THERAPY
--- NOTE | 2019-08-31 12:30 | NUR ---
CHG BATH DONE
[2019-08-31] MEDS ORDERED: NOREPINEPHRINE BITARTRATE 4 MG in D5W 246 ML IV PRN (12:45)
[2019-08-31] MEDS: MEROPENEM 1 GM IVPB PREMIX 50 ML IV SCH ×2 (13:17→21:15)
[2019-08-31] MEDS: LORazepam 2 MG/ML VIAL IVP PRN (13:17)
--- NOTE | 2019-08-31 19:28 | NUR ---
GIVE COMPLETE NURSING REPORT TO AD TRAFFICKER KERVIN Cornejo
--- NOTE | 2019-08-31 19:30 | NUR ---
PM ASSESSMENT REPORT RECEIVED FROM ARIANA MUSA. PT RECEIVED IN BED WITH EYES CLOSED, RESPONDING TO TACTILE STIMULATION. NO S/S OF ACUTE DISTRESS NOTED. PT INTUBATED, VENT SETTINGS: AC 16, TV 500, FIO2 55%, PEEP 5. SB ON MONITOR. EDITH PICC IN PLACE INFUSING D5 1/2 NS + 20 MEQ KCL @ 100 CC/HR AND LEVOPHED DRIP @ 2 MCG/MIN. LFA 18G TO SL. MURPHY CATH IN PLACE DRAINING PADMINI URINE TO GRAVITY. SCDs IN PLACE. HOB ELEVATED, BED IN LOWEST POSITION, CALL LIGHT IN REACH. WILL CONTINUE TO MONITOR PT.
--- NOTE | 2019-08-31 20:30 | NUR ---
DR CANALES EXCHANGE, RESTAURANT CREW PERSON FOR DR VERDUGO, NOTIFIED OF CONSULT.TALKED TO STORMY.
[2019-08-31] MEDS: methylPREDNISolone SOD SUCC 40 MG/ML VIAL IVP SCH (21:15)
[2019-08-31] MEDS: DOPamine PREMIX 250 ML IV PRN (21:16)
--- NOTE | 2019-08-31 23:30 | NUR ---
OG TUBE PLACEMENT: # 16 FR OG tube placed. Placement checked by auscultation of instilled air into stomach and aspiration of gastric contents. Tubing taped in place to prevent dislodging. Patient tolerated WELL.
[2019-09-01] VITALS (28 sets, daily range): BP systolic 96–137
[2019-09-01] MEDS: IPRATROPIUM/ALBUTEROL SULFATE 3 ML AMPUL.NEB (DUONEB) INH SCH ×3 (00:31→19:52)
[2019-09-01] MEDS: LORazepam 2 MG/ML VIAL IVP PRN ×2 (01:34→11:40)
[2019-09-01] MEDS: KCL 20 mEq in D5/0.45NS 1000mL 1,000 ML IV SCH ×3 (03:57→16:55)
[2019-09-01] MEDS: MEROPENEM 1 GM IVPB PREMIX 50 ML IV SCH ×3 (05:24→21:40)
[2019-09-01 06:00] LABS: BASOPHILS % (AUTO) 0.1 % (0.0-2.0); HEMATOCRIT 34.3 % (36-54); HEMOGLOBIN 11.2 g/dL (14.0-18.0); LYMPHOCYTES # (AUTO) 0.5 K/uL (1.0-5.5); LYMPHOCYTES % (AUTO) 5.9 % (20.5-51.5); MEAN CORPUSCULAR HEMOGLOBIN 29 pg (27-31); MEAN CORPUSCULAR HGB CONC 33 % (32-36); MEAN CORPUSCULAR VOLUME 90 fL (79.0-98.0); MONOCYTES # (AUTO) 0.1 K/uL (0.0-1.0); MONOCYTES % (AUTO) 0.8 % (1.7-9.3); NEUTROPHILS # (AUTO) 7.4 K/uL (1.8-7.7); NEUTROPHILS % (AUTO) 93.2 % (40.0-70.0); RED BLOOD CELL COUNT(AUTO) 3.82 MIL/uL (4.2-6.2); WHITE BLOOD COUNT (AUTO) 7.9 K/uL (4.8-10.8)
[2019-09-01 06:02] LABS: CALCIUM 8.3 mg/dL (8.4-11.0); CREATININE 0.56 mg/dL (0.55-1.30); POTASSIUM 3.7 mmol/L (3.5-5.1)
--- NOTE | 2019-09-01 07:10 | NUR ---
AT 0707 A.M, RECEIVED NURSING REPORT FROM WAREHOUSE PACKER KERVIN Cornejo
--- NOTE | 2019-09-01 07:16 | NUR ---
ENDORSEMENT BEDSIDE REPORT GIVEN TO ARIANA MUSA USING SBAR APPROACH.
[2019-09-01 07:17] LABS: PLATELET COUNT (AUTO) 75 K/uL (130-430)
--- NOTE | 2019-09-01 08:00 | NUR ---
AT 0745 A.M, Dr. REAGAN SEE PATIENT, ORDERED START JEVITY 1.5 AT 30 ML/HOUR VIA OG-TUBE
[2019-09-01] MEDS: HYDROmorphone 1 MG INJ. 1 MG/ML AMPUL IM PRN (08:41)
[2019-09-01] MEDS: POTASSIUM CHLORIDE 20 MEQ/PKT PACKET NG SCH ×2 (08:42→21:38)
[2019-09-01] MEDS: FAMOTIDINE PF 20 MG/2 ML VIAL IVP SCH (08:42)
[2019-09-01] MEDS: methylPREDNISolone SOD SUCC 40 MG/ML VIAL IVP SCH ×2 (08:42→21:38)
--- NOTE | 2019-09-01 08:50 | NUR ---
SEE PATIENT, VERBALIZED : O.K TO START FEEDING VIA OG-TUBE
--- NOTE | 2019-09-01 09:30 | NUR ---
PATIENT,S URINE OUTPUT IS 20 ML, SINCE 0600 A.M, Dr. REAGAN AND Dr. VERDUGO ARE AWARE
--- NOTE | 2019-09-01 10:02 | NUR ---
AT 0925 A.M, Dr. VERDUGO SEE PATIENT, ORDERED FOLLOW UP 12 LEADS EKG AND 2 D ECHO CARDIOGRAM , START THEOPHYLLINE ANLYDRUOUS THERAPY
--- NOTE | 2019-09-01 10:13 | NUR ---
AT 1010 A.M, FINISHED 2 D ECHO CARDIOGRAM AT BEDSIDE, E.F 60%
--- NOTE | 2019-09-01 10:17 | NUR ---
AT 1015 A.M, ORDERED CHANGE VENTILATOR SETTING : AC 12, TV 500, FIO2 50%, PEEP 5
[2019-09-01] MEDS: THEOPHYLLINE ANHYDROUS 200 MG CAP.ER.24H PO SCH ×2 (11:28→21:39)
--- NOTE | 2019-09-01 11:41 | NUR ---
Nutrition F/U RD reviewed pt's current EMR record including diet Hx, physician notes, nursing notes, pertinent labs/meds/procedures, care trends, and care activity. Admission Dx: Urosepsis, UTI, dehydration PMH: HTN, hypothyroidism, developmental delay per physician notes Current Diet Order/Nutrition Support: NPO x7 days Subjective Info: Pt referred by RN during huddles. Per RN report, pt is on vent, non-verbal and is pending GI consult for possible PEG placement. Pt failed 2 swallow eval on 08/28 and 08/29 and ESTHETICIAN/SKIN THERAPIST rec is to keep pt on strict NPO and to provide alternative method of feeding. RD noted BG 169 (H). Per RN, ordered to feed pt via NGT. NEW stimated Energy Expenditure (kcals/day) (Ve: 8, Temperature: 37.11 degrees Celsius) 1484 kcal/day (REE PSU for critical illness on vent) Estimated Protein Required (g/day) 78-104 gm/day (1.5-2 gm/kg Adj IBW for sepsis) Estimated Fluid Required (l/day) 1.6-1.8 L/day (1 ml/kcal/day for maintenance) Problem/Etiology/Signs/Symptoms Inadequate nutritional intakes related to metabolic demands as evidenced by NPO status and estimated nutritional requirements for sepsis. *ongoing Expected Outcomes/Goals - Monitor EN tolerance and intake w/ goal of pt meeting at least 75% of estimated nutritional needs, labs trending WNL, normal GI function, and skin integrity/wt maintenance Dietitian Recommendations * Recommend Vital AF 1.2 at50ml/hr (goal rate), FWF 100ml Q6H via NGT. Provides: 1440 kcal, 90 gm protein and 1373ml free water daily. Meets: 97% of est calorie needs and 87% of upper end of est protein needs. Follow Up High Risk: F/U in 2-3 days
--- NOTE | 2019-09-01 11:47 | NUR ---
Dietitian Recommendations * Recommend Vital AF 1.2 at50ml/hr (goal rate), FWF 100ml Q6H via NGT. Provides: 1440 kcal, 90 gm protein and 1373ml free water daily. Meets: 97% of est calorie needs and 87% of upper end of est protein needs. Please see Nutrition F/U note for details. [facility], RD
--- NOTE | 2019-09-01 12:53 | NUR ---
AFTER PENTECOSTALISM ORDER TO DELIVERY SUPERVISOR EVALUATION, ORDERED CHANGE FORMULA FEEDING TO VITAL 1.2 AT 30 ML/HOUR, GOAL 50 ML/HOUR, AND FREE WATER 100 ML VIA OG-TUBE EVERY 6 HOURS
--- NOTE | 2019-09-01 13:53 | NUR ---
PATIENT,S TEMPERATURE IS 95.5.F ( WAS COVERED 3 BLANKETS ), ORDERED WEAR WARM BLANKET FOR PATIENT, KEEP CLOSE MONITOR
--- NOTE | 2019-09-01 15:50 | NUR ---
PATIENT,S URINE OUTPUT IS 120 ML( [id number]) REPORTED TO , AT 1550 P.M ,Dr. CONTI SEE PATIENT NOW
[2019-09-01] MEDS ORDERED: FUROSEMIDE 20 MG/2 ML VIAL IVP ONE (16:15)
[2019-09-01] MEDS ORDERED: LEVOTHYROXINE SODIUM 0.1 MG VIAL IVP ONE (16:15)
--- NOTE | 2019-09-01 18:00 | NUR ---
AFTER LASIX 20 MG IVP, HAD URINE OUTPUT 700 ML, CLEAR, YELLOW COLOR, KEEP CLOSE MONITOR
--- NOTE | 2019-09-01 19:05 | NUR ---
GIVE COMPLETE NURSING REPORT TO SUPERVISORY AIDETABITHA PAIGE R.N
--- NOTE | 2019-09-01 20:00 | NUR ---
ORALLY INTUBATED. LETHARGIC. REACTS TO TACTILE STIMULI. SUCTIONED WITH COPIOUS AMOUNTS OF THICK CLEAR MUCUS OBTAINED. ORAL CARE GIVEN. OGT WITH VITAL AF 1.2 AT 30CC/HR. RESIDUAL CHECK 0, OGT FEEDING INCREASED TO 40CC/HR. EXTREMITIES CONTRACTED. MURPHY CATH PATENT DRAINING CLOUDY PADMINI URINE TO GRAVITY. SR. TURNED.
--- NOTE | 2019-09-01 22:00 | NUR ---
SUCTIONED WITH SAME RESULTS. TURNED. HS CARE.
[2019-09-02] VITALS (28 sets, daily range): BP systolic 81–141
--- NOTE | 2019-09-02 | NUR ---
COPIOUS ORAL SECRETIONS. ORAL CARE GIVEN. SUCTIONED ENDOTRACHEALLY. RESIDUAL CHECK 0, OGT FEEDING INCREASED TO 50CC/HR. OGT FLUSHED WITH 100CC H2O.
[2019-09-02] MEDS: IPRATROPIUM/ALBUTEROL SULFATE 3 ML AMPUL.NEB (DUONEB) INH SCH ×4 (00:53→19:46)
[2019-09-02] MEDS: KCL 20 mEq in D5/0.45NS 1000mL 1,000 ML IV SCH ×2 (01:00→18:30)
--- NOTE | 2019-09-02 02:00 | NUR ---
SOUNDLY ASLEEP. SUCTIONED. TURNED.
--- NOTE | 2019-09-02 04:00 | NUR ---
SUCTIONED. TURNED. RESIDUAL CHECK 0. ORAL CARE DONE.
--- NOTE | 2019-09-02 06:00 | NUR ---
SUCTIONED AND TURNED Q2 HRS AND PRN. UO GOOD. OGT FLUSHED WITH 100CC H2O. REMAINS IN GUARDED CONDITION.
[2019-09-02] MEDS ORDERED: LEVOTHYROXINE SODIUM 0.1 MG VIAL IVP ONE (06:05)
[2019-09-02] MEDS: MEROPENEM 1 GM IVPB PREMIX 50 ML IV SCH (06:08)
[2019-09-02] MEDS: LEVOTHYROXINE SODIUM 0.1 MG VIAL IVP SCH (06:13)
[2019-09-02 06:52] LABS: HEMOGLOBIN 10.9 g/dL (14.0-18.0)
[2019-09-02 07:03] LABS: ALBUMIN 1.8 g/dL (3.4-4.8); CALCIUM 8.1 mg/dL (8.4-11.0); CREATININE 0.47 mg/dL (0.55-1.30); POTASSIUM 3.8 mmol/L (3.5-5.1); TOTAL BILIRUBIN 0.2 mg/dL (0.0-1.0)
--- NOTE | 2019-09-02 07:07 | NUR ---
RECEIVED NURSING REPORT FROM PIN MACHINE TENDERTABITHA PAIGE R.N
[2019-09-02 07:15] LABS: BASOPHILS % (AUTO) 0.1 % (0.0-2.0); HEMATOCRIT 32.9 % (36-54); LYMPHOCYTES # (AUTO) 0.5 K/uL (1.0-5.5); LYMPHOCYTES % (AUTO) 4.4 % (20.5-51.5); MEAN CORPUSCULAR HEMOGLOBIN 30 pg (27-31); MEAN CORPUSCULAR HGB CONC 33 % (32-36); MEAN CORPUSCULAR VOLUME 90 fL (79.0-98.0); MONOCYTES # (AUTO) 0.3 K/uL (0.0-1.0); MONOCYTES % (AUTO) 2.7 % (1.7-9.3); NEUTROPHILS # (AUTO) 10.2 K/uL (1.8-7.7); NEUTROPHILS % (AUTO) 92.8 % (40.0-70.0); PLATELET COUNT (AUTO) 125 K/uL (130-430); RED BLOOD CELL COUNT(AUTO) 3.67 MIL/uL (4.2-6.2); RED CELL DISTRIBUTION WIDTH 16.3 % (9.0-15.0)
--- NOTE | 2019-09-02 08:55 | NUR ---
RT NOTES- VT 450, FIO2 40% CHANGED VENT SETTING TO AC 12 450 +5 40%FIO2 PER . RN NOTIFIED. WILL CONTINUE MONITORING.
[2019-09-02] MEDS: THEOPHYLLINE ANHYDROUS 200 MG CAP.ER.24H PO SCH ×2 (08:57→21:06)
[2019-09-02] MEDS: FAMOTIDINE PF 20 MG/2 ML VIAL IVP SCH (08:57)
[2019-09-02] MEDS: LORazepam 2 MG/ML VIAL IVP PRN ×3 (08:58→17:16)
--- NOTE | 2019-09-02 09:00 | NUR ---
AT 0850 A.M, SEE PATIENT , VERBALIZED : ON SCHEDULE FOR PEG AT 09/04/19Sunday, HE WILL CALL FAMILY FOR EXPLAIN
[2019-09-02] MEDS: HYDROmorphone 1 MG INJ. 1 MG/ML AMPUL IM PRN ×3 (10:06→15:15)
--- NOTE | 2019-09-02 11:00 | NUR ---
Dr. RODRIGUEZ SEE PATIENT WAS AWARE B.P 81/40 MMHG, ORDERED START DOPAMIN DRIP FOR KEEP SBP > 90 MMHG
--- NOTE | 2019-09-02 11:40 | NUR ---
SEE PATIENT, ORDERED FOLLOW UP LAB IN A.M
--- NOTE | 2019-09-02 12:00 | NUR ---
AT 1133 A.M, SEE PATIENT, ORDERED START FLAGYL AND CEFEPIME THERAPY
[2019-09-02] MEDS: DOPamine PREMIX 250 ML IV PRN (12:49)
[2019-09-02] MEDS: POTASSIUM CHLORIDE 20 MEQ/PKT PACKET PO SCH ×2 (12:51→21:05)
[2019-09-02] MEDS: methylPREDNISolone SOD SUCC 40 MG/ML VIAL IVP SCH ×2 (12:51→21:05)
[2019-09-02] MEDS: FUROSEMIDE 20 MG/2 ML VIAL IVP SCH ×2 (12:51→21:04)
--- NOTE | 2019-09-02 19:08 | NUR ---
GIVE COMPLETE NURSING REPORT TO CUSTOMER DEVELOPMENT MANAGERTABITHA PAIGE R.N
--- NOTE | 2019-09-02 20:00 | NUR ---
LETHARGIC. ORALLY INTUBATED. SUCTIONED WITH LARGE AMOUNT OF THICK CLEAR MUCUS OBTAINED. ORAL CARE RENDERED. OGT FEEDING WITH VITAL AF 1.2 AT 50CC/HR. ON DOPAMINE AT 4 MCG/KG/MIN. EXTREMITIES CONTRACTED AND EDEMATOUS. LADY SCD'S IN PLACE. EDITH PICC LINE DRSG D/I. MURPHY CATH PATENT DRAINING CLEAR PADMINI URINE TO GRAVITY. SINUS RHYTHM.
[2019-09-02] MEDS: metroNIDAZOLE 500 mg/NS 100 ML IV SCH (21:03)
[2019-09-02] MEDS: CEFEPIME 1 GM in D5W 50 ML IV SCH (21:04)
--- NOTE | 2019-09-02 22:00 | NUR ---
SUCTIONED. HS CARE. TURNED.
[2019-09-03] VITALS (28 sets, daily range): BP systolic 98–125
--- NOTE | 2019-09-03 | NUR ---
SUCTIONED AGAIN WITH SAME RESULTS. ORAL CARE GIVEN. RESIDUAL CHECK 0. OGT FLUSHED WITH 100CC H2O. UO GOOD.
[2019-09-03] MEDS: IPRATROPIUM/ALBUTEROL SULFATE 3 ML AMPUL.NEB (DUONEB) INH SCH ×4 (01:20→21:06)
--- NOTE | 2019-09-03 02:00 | NUR ---
DOZES ON AND OFF. SUCTIONED. REPOSITIONED.
--- NOTE | 2019-09-03 04:00 | NUR ---
SUCTIONED. TURNED. VSS. RESIDUAL CHECK 0. ORAL CARE GIVEN.
--- NOTE | 2019-09-03 06:00 | NUR ---
ATTEMPTS TO PUSH OGT OUT WITH TONGUE. ATIVAN 1 MG IVP GIVEN. UO GOOD. OGT FLUSHED WITH 100CC H2O. REMAINS IN GUARDED CONDITION.
[2019-09-03] MEDS: LEVOTHYROXINE SODIUM 0.1 MG VIAL IVP SCH (06:03)
[2019-09-03] MEDS: LORazepam 2 MG/ML VIAL IVP PRN ×4 (06:08→23:08)
[2019-09-03 06:25] LABS: BASOPHILS % (AUTO) 0.1 % (0.0-2.0); HEMATOCRIT 33.9 % (36-54); HEMOGLOBIN 11.3 g/dL (14.0-18.0); LYMPHOCYTES # (AUTO) 0.5 K/uL (1.0-5.5); LYMPHOCYTES % (AUTO) 6.8 % (20.5-51.5); MEAN CORPUSCULAR HEMOGLOBIN 30 pg (27-31); MEAN CORPUSCULAR HGB CONC 33 % (32-36); MEAN CORPUSCULAR VOLUME 89 fL (79.0-98.0); MONOCYTES # (AUTO) 0.4 K/uL (0.0-1.0); MONOCYTES % (AUTO) 4.9 % (1.7-9.3); NEUTROPHILS # (AUTO) 6.6 K/uL (1.8-7.7); NEUTROPHILS % (AUTO) 88.2 % (40.0-70.0); PLATELET COUNT (AUTO) 195 K/uL (130-430); RED BLOOD CELL COUNT(AUTO) 3.81 MIL/uL (4.2-6.2); RED CELL DISTRIBUTION WIDTH 16.5 % (9.0-15.0); WHITE BLOOD COUNT (AUTO) 7.5 K/uL (4.8-10.8)
[2019-09-03 06:43] LABS: CALCIUM 8.1 mg/dL (8.4-11.0); CREATININE 0.42 mg/dL (0.55-1.30); PHOSPHORUS 1.7 mg/dL (2.7-4.5); POTASSIUM 3.9 mmol/L (3.5-5.1)
--- NOTE | 2019-09-03 07:54 | NUR ---
AT 0713 A.M, RECEIVED NURSING REPORT FROM CÉSAR PAIGE R.N
[2019-09-03] MEDS: metroNIDAZOLE 500 mg/NS 100 ML IV SCH ×2 (08:28→21:34)
[2019-09-03] MEDS: CEFEPIME 1 GM in D5W 50 ML IV SCH ×2 (08:29→21:33)
[2019-09-03] MEDS: FAMOTIDINE PF 20 MG/2 ML VIAL IVP SCH (08:29)
[2019-09-03] MEDS: HYDROmorphone 1 MG INJ. 1 MG/ML AMPUL IM PRN ×3 (08:30→16:58)
[2019-09-03] MEDS: methylPREDNISolone SOD SUCC 40 MG/ML VIAL IVP SCH (08:30)
[2019-09-03] MEDS: THEOPHYLLINE ANHYDROUS 200 MG CAP.ER.24H PO SCH ×2 (08:31→21:00)
--- NOTE | 2019-09-03 10:05 | NUR ---
RT NOTES- ETT 24CM PER DR. REAGAN VERBAL ORDER PULLED ETT FROM 25CM TO 24CM LIP LINE. RN ARIANA NOTIFIED.
[2019-09-03] MEDS: DOPamine PREMIX 250 ML IV PRN (13:29)
--- NOTE | 2019-09-03 13:34 | NUR ---
at 1315 Dr.SHARMA JANELL SALINAS AND CALLED PATIENT,S MOM FOR EXPLAINED, THEN OBTAINED THE PHONE CONSENT FOR PEG IN THE CHART
[2019-09-03] MEDS: NAPH,MB-DB/K PH,MBDB 250 MG TAB NG SCH ×2 (17:03→21:33)
--- NOTE | 2019-09-03 19:15 | NUR ---
GIVE COMPLETE NURSING REPORT TO ADMITTING REPRESENTATIVETABITHA PAIGE R.N
--- NOTE | 2019-09-03 20:00 | NUR ---
ORALLY INTUBATED. DROOLS. SUCTIONED ORALLY AND ENDOTRACHEALLY WITH MOD AMOUNT OF THICK CLEAR MUCUS OBTAINED. ORAL CARE GIVEN. OGT FEEDING WITH VITAL AF 1.2 AT 50CC/HR. RESIDUAL CHECK 0. EXTREMITIES CONTRACTED. LEFT UPPER ARM PICC LINE DRSG D/I. EXTREMITIES EDEMATOUS. MURPHY CATH PATENT DRAINING CLEAR PADMINI URINE TO GRAVITY. LADY SCD'S IN PLACE. SR.
--- NOTE | 2019-09-03 22:00 | NUR ---
SUCTIONED AGAIN WITH SAME RESULTS. HS CARE GIVEN. AND REPOSITIONED. TURNED.
--- NOTE | 2019-09-03 23:00 | NUR ---
GAGGING ON ETT AND OGT. ATTEMPTING TO DISLODGE OGT WITH TONGUE. COUGHING, BUCKING THE VENT. RESTLESS. ATIVAN 1 MG IVP GIVEN FOR AGITATION.
[2019-09-04] VITALS (34 sets, daily range): BP systolic 95–140
--- NOTE | 2019-09-04 | NUR ---
DOZES ON AND OFF. TURNED. SUCTIONED. OGT RESIDUAL CHECK 0, FLUSHED WITH 100CC H2O.
[2019-09-04] MEDS: IPRATROPIUM/ALBUTEROL SULFATE 3 ML AMPUL.NEB (DUONEB) INH SCH ×4 (01:35→19:48)
--- NOTE | 2019-09-04 02:00 | NUR ---
SLEPT INTERMITTENTLY. VSS. SUCTIONED. TURNED.
--- NOTE | 2019-09-04 04:00 | NUR ---
SUCTIONED. TURNED. ORAL CARE GIVEN.
--- NOTE | 2019-09-04 05:00 | NUR ---
LADY HEELS DRSG CHANGED. PICTURES TAKEN. 1 LARGE BROWN LBM DEFECATED. CLEANED. JENSEN-CARE GIVEN. SKIN CARE, MURPHY CARE, BACK CARE DONE. PARTIAL LINEN CHANGE DONE. DOES NOT ASSIST WITH TURNING. TARI PROC WELL.
--- NOTE | 2019-09-04 06:00 | NUR ---
DROOLS. OGT FLUSHED WITH 100CC H2O. UO GOOD. REMAINS IN GUARDED CONDITION.
[2019-09-04] MEDS: LEVOTHYROXINE SODIUM 0.1 MG VIAL IVP SCH (06:04)
[2019-09-04] MEDS: KCL 20 mEq in D5/0.45NS 1000mL 1,000 ML IV SCH (06:05)
[2019-09-04 06:58] LABS: BASOPHILS % (AUTO) 0.2 % (0.0-2.0); HEMATOCRIT 31.8 % (36-54); HEMOGLOBIN 10.5 g/dL (14.0-18.0); LYMPHOCYTES # (AUTO) 0.5 K/uL (1.0-5.5); LYMPHOCYTES % (AUTO) 6.5 % (20.5-51.5); MEAN CORPUSCULAR HEMOGLOBIN 30 pg (27-31); MEAN CORPUSCULAR HGB CONC 33 % (32-36); MEAN CORPUSCULAR VOLUME 90 fL (79.0-98.0); MONOCYTES # (AUTO) 0.6 K/uL (0.0-1.0); MONOCYTES % (AUTO) 7.6 % (1.7-9.3); NEUTROPHILS # (AUTO) 6.7 K/uL (1.8-7.7); NEUTROPHILS % (AUTO) 85.7 % (40.0-70.0); PLATELET COUNT (AUTO) 222 K/uL (130-430); RED BLOOD CELL COUNT(AUTO) 3.53 MIL/uL (4.2-6.2); RED CELL DISTRIBUTION WIDTH 16.5 % (9.0-15.0); WHITE BLOOD COUNT (AUTO) 7.8 K/uL (4.8-10.8)
[2019-09-04] MEDS ORDERED: MEPERIDINE HCL/PF 100 MG/ML AMP ONE ×2 (07:01→07:02)
[2019-09-04] MEDS ORDERED: MIDAZOLAM HCL 5 MG/5 ML VIAL ONE ×2 (07:02)
[2019-09-04] MEDS ORDERED: SIMETHICONE 40 MG/0.6 ML ML ONE (07:03)
--- NOTE | 2019-09-04 07:50 | NUR ---
AM ASSESSMENT. PT ORALLY INTUBATED, GAGGING-LIKE MOTION NOTED, GENTLE ORAL SUCTIONING DONE, TURNED AND REPOSITIONED UP IN BED, PT FOR PEG PLACEMENT THIS AM.
[2019-09-04] MEDS: NAPH,MB-DB/K PH,MBDB 250 MG TAB NG SCH ×4 (07:53→21:36)
[2019-09-04 07:55] LABS: INR 1.1 (0.80-1.20)
[2019-09-04] MEDS: LORazepam 2 MG/ML VIAL IVP PRN ×2 (07:57→10:08)
--- NOTE | 2019-09-04 07:57 | NUR ---
MEDS. PT AGITATED AFTER CARE, ATIVAN 1 MG IVP GIVEN.
--- NOTE | 2019-09-04 08:30 | NUR ---
Bryanna QUIROGA AND HIS CREW AT BEDSIDE, PT WAS PREPPED FOR PEG TUBE PLACEMENT.
--- NOTE | 2019-09-04 08:35 | NUR ---
0838 Lenore MENA BY FOR PROCEDURE . TITRATE FIO2 PER DR. OSBORNE TO 60%. TITRATED BACK TO 40% POST PROCEDURE PER DR. OSBORNE. Addendum: 09/04/19 at 1138 by Josseline Ceja RT Amended: Links added.
[2019-09-04] MEDS: metroNIDAZOLE 500 mg/NS 100 ML IV SCH ×2 (09:25→21:35)
[2019-09-04] MEDS: FAMOTIDINE PF 20 MG/2 ML VIAL IVP SCH (09:25)
[2019-09-04 09:30] LABS: ALBUMIN 1.9 g/dL (3.4-4.8); CALCIUM 7.9 mg/dL (8.4-11.0); CREATININE 0.45 mg/dL (0.55-1.30); PHOSPHORUS 2.4 mg/dL (2.7-4.5); TOTAL BILIRUBIN 0.2 mg/dL (0.0-1.0)
[2019-09-04] MEDS: CEFEPIME 1 GM in D5W 50 ML IV SCH ×2 (10:07→21:36)
--- NOTE | 2019-09-04 10:30 | NUR ---
FEEDING TUBE. CHECKED PLACEMENT OF EXISTING OGTUBE VIA AUSCULTATION, UNABLE TO HEAR PASSAGE OF AIR INTO STOMACH. OGT REMOVED. INSERTED AN 18 FR SALEM SUMP, AUSCULTATION DONE, AIR HEARD OVER RIGHT UPPER QUADRANT. CHEST XRAY ORDERED TO CHECK ITS PLACEMENT.
--- NOTE | 2019-09-04 10:45 | NUR ---
XRAY. PORTABLE CHEST XRAY DONE AT BEDSIDE.
--- NOTE | 2019-09-04 11:50 | NUR ---
RESULT. DR RODRIGUEZ IN THE UNIT. SHOWED XRAY REPORT, ORDERED TO RESUME FEEDING VIA OGT.
--- NOTE | 2019-09-04 12:00 | NUR ---
TUBE FEEDING. VITAL AF VIA OGT RESTARTED AT 50 ML PER HR, TURNED AND REPOSITIONED IN BED, HAD LARGE LOOSE BOWEL MOVEMENT, INCONTINENT CARE RENDERED.
[2019-09-04] MEDS: THEOPHYLLINE ANHYDROUS 80 MG/15 ML UDC GT SCH ×2 (13:26→21:36)
--- NOTE | 2019-09-04 14:46 | NUR ---
Nutrition F/U RD reviewed pt's current EMR including diet Hx, physician notes, nursing notes, pertinent labs/meds/procedures, care trends and care activity. Current Nutrition Support: Vital AF 1.2 at 30ml/hr, FWF 100ml Q6H via NGT. Subjective information: During RD visit, EN was off, family at bedside. Per RN notes, EN was off d/t PEG placement this morning, it was unsuccessful and NGT remains clamped. Current EN regimen provides 864 kcal, 54 gm protein and 984ml free water daily which meets: 53% of est calorie needs and 69% of lower end of est protein needs. Current PO intake: N/A on EN support NEW Estimated Energy Expenditure (kcals/day) (Ve: 11.1, Temperature: 37.33 degrees Celsius) 1617 kcal/day (REE PSU for critical illness on vent) Estimated Protein Required (g/day) 78-104 gm/day (1.5-2 gm/kg Adj IBW for sepsis) Estimated Fluid Required (l/day) 1.6-1.8 L/day (1 ml/kcal/day for maintenance) Problem/Etiology/Signs/Symptoms Inadequate nutritional intakes related to metabolic demands as evidenced by NPO status and estimated nutritional requirements for sepsis. *ongoing Inadequate EN intake r/t current EN regimen AEB EN regimen meets <70% of est needs and need for PEG to meet est needs. (*new) Expected Outcomes/Goals - Monitor EN tolerance and intake w/ goal of pt meeting at least 75% of estimated nutritional needs, labs trending WNL, normal GI function, and skin integrity/wt maintenance Dietitian Recommendations * If medically appropriate, re-start Vital AF 1.2 and increase rate to 50ml/hr (goal rate), FWF 100ml Q6H via NGT. Provides: 1440 kcal, 90 gm protein and 1373ml free water daily. Meets: 89% of est calorie needs and 87% of upper end of est protein needs. Follow Up High Risk: F/U in 2-3 days
--- NOTE | 2019-09-04 14:53 | NUR ---
Dietitian Recommendations * If medically appropriate, re-start Vital AF 1.2 and increase rate to 50ml/hr (goal rate), FWF 100ml Q6H via NGT. Provides: 1440 kcal, 90 gm protein and 1373ml free water daily. Meets: 89% of est calorie needs and 87% of upper end of est protein needs. Please see nutrition F/U note for details. [facility], RD
[2019-09-04] MEDS: DOPamine PREMIX 250 ML IV PRN (15:56)
--- NOTE | 2019-09-04 18:00 | NUR ---
NURSING. TURNED AND REPOSITIONED IN BED, FEEDING VIA OGT TOLERATED WELL, HEAD OF BED ELEVATED AT 35 DEGREE ANGLE AFTER PERINEAL HYGIENE, HAD LARGE AMOUNT OF STOOL.
--- NOTE | 2019-09-04 20:00 | NUR ---
ORALLY INTUBATED. SUCTIONED WITH MOD AMOUNTS OF THIN WHITE MUCUS OBTAINED. DROOLS. SUCTIONED BUCCAL CAVITY. ORAL CARE GIVEN. OGT FEEDING WITH VITAL AF 1.2 INFUSING AT 50CC/HR. RESIDUAL CHECK 20CC. EXTREMITIES CONTRACTED. LADY SCD'S IN PLACE. MURPHY CATH PATENT DRAINING CLOUDY PADMINI URINE TO GRAVITY. EDITH PICC LINE DRSG D/I. ON DOPAMINE AT 2 MCG/KG/MIN. SR.
--- NOTE | 2019-09-04 22:00 | NUR ---
SUCTIONED. HS CARE. TURNED.
[2019-09-05] VITALS (36 sets, daily range): BP systolic 94–137
--- NOTE | 2019-09-05 | NUR ---
DOZES ON AND OFF. RESIDUAL CHECK 30CC. OGT FLUSHED WITH 100CC H2O. ORAL CARE GIVEN. REPOSITIONED.
[2019-09-05] MEDS: IPRATROPIUM/ALBUTEROL SULFATE 3 ML AMPUL.NEB (DUONEB) INH SCH ×4 (01:08→19:59)
--- NOTE | 2019-09-05 02:00 | NUR ---
ASLEEP. NO DISTRESS NOTED. SUCTIONED AGAIN. TURNED.
--- NOTE | 2019-09-05 04:00 | NUR ---
SLEPT INTERMITTENTLY. 1 LARGE WATERY BROWN LBM DEFECATED. CLEANED. JENSEN CARE, BACK CARE, MURPHY CARE, SKIN CARE GIVEN. PARTIAL LINEN CHANGE DONE. SUCTIONED. ORAL CARE DONE. DOES NOT ASSIST WITH TURNING. TARI PROC WELL.
[2019-09-05] MEDS: LEVOTHYROXINE SODIUM 0.1 MG VIAL IVP SCH (05:53)
[2019-09-05] MEDS: THEOPHYLLINE ANHYDROUS 80 MG/15 ML UDC GT SCH (05:54)
--- NOTE | 2019-09-05 06:00 | NUR ---
SUCTIONED AND TURNED Q2 HRS AND PRN. UO GOOD. DOPAMINE AT 2 MCG/KG/MIN. OGT FLUSHED WITH 100CC H2O. REMAINS IN GUARDED CONDITION.
[2019-09-05 06:18] LABS: BASOPHILS % (AUTO) 0.1 % (0.0-2.0); EOSINOPHILS # (AUTO) 0.3 K/uL (0.0-0.4); EOSINOPHILS % (AUTO) 3.2 % (0.0-4.0); HEMATOCRIT 29.3 % (36-54); HEMOGLOBIN 10.1 g/dL (14.0-18.0); LYMPHOCYTES # (AUTO) 1.4 K/uL (1.0-5.5); LYMPHOCYTES % (AUTO) 15.6 % (20.5-51.5); MEAN CORPUSCULAR HEMOGLOBIN 31 pg (27-31); MEAN CORPUSCULAR HGB CONC 35 % (32-36); MEAN CORPUSCULAR VOLUME 89 fL (79.0-98.0); MONOCYTES # (AUTO) 0.6 K/uL (0.0-1.0); MONOCYTES % (AUTO) 6.4 % (1.7-9.3); NEUTROPHILS # (AUTO) 6.7 K/uL (1.8-7.7); NEUTROPHILS % (AUTO) 74.7 % (40.0-70.0); PLATELET COUNT (AUTO) 229 K/uL (130-430); RED BLOOD CELL COUNT(AUTO) 3.28 MIL/uL (4.2-6.2); RED CELL DISTRIBUTION WIDTH 16.2 % (9.0-15.0)
--- NOTE | 2019-09-05 07:50 | NUR ---
AM ASSESSMENT. PT ORALLY INTUBATED, ORAL CARE RENDERED, ON FEEDING VIA OGT, GASTRIC RESIDUAL LESS THAN 5 ML, REPOSITIONED IN BED, CONTRACTED ARMS AND LEGS, ABDOMEN SOFT ON PALPATION, MURPHY CATHETER IN PLACE, IVF INFUSING D51/2NS WITH 20 MEQ KCL AT 30 ML PER HR, DOPAMINE DRIP AT 4 MCG/KG/MIN.
[2019-09-05] MEDS: KCL 20 mEq in D5/0.45NS 1000mL 1,000 ML IV SCH (07:55)
[2019-09-05] MEDS: NAPH,MB-DB/K PH,MBDB 250 MG TAB NG SCH ×4 (09:13→20:57)
[2019-09-05] MEDS: CEFEPIME 1 GM in D5W 50 ML IV SCH ×2 (09:13→21:41)
[2019-09-05] MEDS: metroNIDAZOLE 500 mg/NS 100 ML IV SCH ×2 (11:26→20:49)
[2019-09-05] MEDS: FAMOTIDINE PF 20 MG/2 ML VIAL IVP SCH (11:26)
[2019-09-05 16:33] LABS: CALCIUM 7.9 mg/dL (8.4-11.0); CREATININE 0.38 mg/dL (0.55-1.30); POTASSIUM 4.1 mmol/L (3.5-5.1)
--- NOTE | 2019-09-05 16:55 | NUR ---
. PT SEEN AND EXAMINED BY DR CONTI, NEW ORDERS RECEIVED.
--- NOTE | 2019-09-05 17:25 | NUR ---
IV DRIP. DOPAMINE DRIP DISCONTINUED ORDERED BY DR CONTI AND DR VERDUGO.
--- NOTE | 2019-09-05 17:27 | NUR ---
Called Dr. Hassan with a consult, spoke with Gopal from the exchange
--- NOTE | 2019-09-05 17:30 | NUR ---
SURGEON. DR POTTER CALLED, INFORMED HIM OF PT'S STATUS, STATED HE WILL COME IN TO SEE PT TOMORROW.
--- NOTE | 2019-09-05 20:00 | NUR ---
RECEIVED PATIENT ON THE VENTILATOR ON AC MODE WITH 405 FIO2.PATIENT ON HIGH FOWLERS POSITION,ON CONTINOUS FEEDING WITH VITAL AF AT 50CC/HR,PATIENT TOLERATING FEENG.PATIENT REPOSITIONED TO SIDE ,HAD 1 BIG BOWEL MOVEMENT PASTY IN [facility]. PATIENT DID JENSEN CARE AND PARTIAL LIENS MADE.PATIENT SUCTIONED ETT AND ORAL WITH COPOUS SECRETIONS.
--- NOTE | 2019-09-05 21:00 | NUR ---
TURNED REPOSITIOED USED SEVERAL PILLOWS TO SUPPORT HEELS BACK PATIENT SOMETIMES KEEP CHEWING ETTPATIENT REPOSITIOED.HEAD OF BED ELEVATED.
[2019-09-06] VITALS (32 sets, daily range): BP systolic 93–141
[2019-09-06] MEDS: LORazepam 2 MG/ML VIAL IVP PRN (00:49)
[2019-09-06] MEDS: IPRATROPIUM/ALBUTEROL SULFATE 3 ML AMPUL.NEB (DUONEB) INH SCH ×3 (01:29→19:56)
--- NOTE | 2019-09-06 04:00 | NUR ---
PARTIAL LINENS CHANGE PATIENT HAD ANOTHER BM THIS TIME ITS LOOSE IN CONSITENCY CHIQUITA ANAL CARE DONE.KEPT HEAD OF BED ELEVATED.
[2019-09-06 06:14] LABS: BASOPHILS % (AUTO) 0.1 % (0.0-2.0); EOSINOPHILS # (AUTO) 0.4 K/uL (0.0-0.4); EOSINOPHILS % (AUTO) 3.8 % (0.0-4.0); HEMATOCRIT 29.1 % (36-54); LYMPHOCYTES # (AUTO) 0.7 K/uL (1.0-5.5); MEAN CORPUSCULAR HEMOGLOBIN 31 pg (27-31); MEAN CORPUSCULAR HGB CONC 35 % (32-36); MEAN CORPUSCULAR VOLUME 88 fL (79.0-98.0); MONOCYTES # (AUTO) 0.4 K/uL (0.0-1.0); MONOCYTES % (AUTO) 3.4 % (1.7-9.3); NEUTROPHILS % (AUTO) 85.7 % (40.0-70.0); PLATELET COUNT (AUTO) 251 K/uL (130-430); RED BLOOD CELL COUNT(AUTO) 3.29 MIL/uL (4.2-6.2); RED CELL DISTRIBUTION WIDTH 16.1 % (9.0-15.0); WHITE BLOOD COUNT (AUTO) 10.5 K/uL (4.8-10.8)
[2019-09-06] MEDS: LEVOTHYROXINE SODIUM 0.1 MG VIAL IVP SCH (06:19)
[2019-09-06 06:30] LABS: CALCIUM 7.9 mg/dL (8.4-11.0); CREATININE 0.31 mg/dL (0.55-1.30); POTASSIUM 4.1 mmol/L (3.5-5.1)
--- NOTE | 2019-09-06 07:25 | NUR ---
Received patient from [facility] shift nurse. Patient in no acute distress. Breathing even and unlabored. Call light with in reach. Side rails x 3 up.
[2019-09-06] MEDS: metroNIDAZOLE 500 mg/NS 100 ML IV SCH ×2 (09:27→20:01)
[2019-09-06] MEDS: FAMOTIDINE PF 20 MG/2 ML VIAL IVP SCH (09:27)
[2019-09-06] MEDS: NAPH,MB-DB/K PH,MBDB 250 MG TAB NG SCH ×4 (09:27→20:01)
[2019-09-06] MEDS: CEFEPIME 1 GM in D5W 50 ML IV SCH ×2 (09:27→20:01)
--- NOTE | 2019-09-06 10:05 | NUR ---
MD Moe at bedside.
[2019-09-06] MEDS ORDERED: FUROSEMIDE 40 MG/4 ML VIAL IVP ONE (11:45)
--- NOTE | 2019-09-06 11:45 | NUR ---
RT NOTE: 1145 Pt placed on 30% FiO2 per Dr Talbert. Addendum: 09/06/19 at 1156 by Sara Owens RT Amended: Links added.
[2019-09-06] MEDS: KCL 20 mEq in D5/0.45NS 1000mL 1,000 ML IV SCH (13:23)
--- NOTE | 2019-09-06 16:00 | NUR ---
MD Hassan at bedside.
--- NOTE | 2019-09-06 16:27 | NUR ---
MD Hassan stated waiting for extra screenings to determine if patient is a candidate for surgery or not and has to look at schedule, maybe on Sunday.
--- NOTE | 2019-09-06 19:20 | NUR ---
Endorsed patient and gave report to oncoming nurse. Patient in bed, sleeping. Side rails up x 3. Call light with in reach. In no acute distress.
--- NOTE | 2019-09-06 19:30 | NUR ---
PM ASSESSMENT Pt in bed with eyes closed resting comfortably, no signs of acute distress or discomfort noted. VSS with SR seen on the monitor. Pt orally intubated, vent settings: AC 12, TV 450, FIO2 30% and PEEP of 5. Pt has EDITH picc, c/d/i. OG tube noted, infusing tubefeeding at this time. Pt tolerating feeding well. Cross cath noted draining urine to gravity. SCD's noted to pt's bilateral lower extremities. Bed is locked and in lowest position, call light within reach, will cont to monitor pt.
--- NOTE | 2019-09-06 22:00 | NUR ---
Pt in bed with eyes closed resting comfortably, no signs of acute distress or discomfort noted. Pt repositioned at this time, pt tolerated well. Bed is locked and in lowest position, call light within reach, will cont to monitor pt.
[2019-09-07] VITALS (31 sets, daily range): BP systolic 100–147
[2019-09-07] MEDS: KCL 20 mEq in D5/0.45NS 1000mL 1,000 ML IV SCH (00:48)
[2019-09-07] MEDS: IPRATROPIUM/ALBUTEROL SULFATE 3 ML AMPUL.NEB (DUONEB) INH SCH ×4 (01:22→19:33)
--- NOTE | 2019-09-07 02:00 | NUR ---
Pt in bed with eyes closed resting comfortably. No signs of acute distress or discomfort noted. Pt's vent settings: AC 12, TV 450, Fio2 30% and PEEP of 5. Pt tolerating settings well with O2 sats @ 94% and even and unlabored breathing. Bed is locked and in lowest position, call light within reach, will cont to monitor pt.
[2019-09-07] MEDS: LEVOTHYROXINE SODIUM 0.1 MG VIAL IVP SCH (05:36)
[2019-09-07 06:02] LABS: BASOPHILS % (AUTO) 0.1 % (0.0-2.0); EOSINOPHILS # (AUTO) 0.2 K/uL (0.0-0.4); EOSINOPHILS % (AUTO) 1.9 % (0.0-4.0); HEMATOCRIT 32.3 % (36-54); LYMPHOCYTES # (AUTO) 0.7 K/uL (1.0-5.5); LYMPHOCYTES % (AUTO) 5.8 % (20.5-51.5); MEAN CORPUSCULAR HEMOGLOBIN 30 pg (27-31); MEAN CORPUSCULAR HGB CONC 34 % (32-36); MEAN CORPUSCULAR VOLUME 88 fL (79.0-98.0); MONOCYTES # (AUTO) 0.4 K/uL (0.0-1.0); NEUTROPHILS # (AUTO) 10.9 K/uL (1.8-7.7); NEUTROPHILS % (AUTO) 89.2 % (40.0-70.0); PLATELET COUNT (AUTO) 353 K/uL (130-430); RED BLOOD CELL COUNT(AUTO) 3.67 MIL/uL (4.2-6.2); RED CELL DISTRIBUTION WIDTH 15.5 % (9.0-15.0); WHITE BLOOD COUNT (AUTO) 12.2 K/uL (4.8-10.8)
[2019-09-07 06:17] LABS: ALBUMIN 1.8 g/dL (3.4-4.8); CALCIUM 7.9 mg/dL (8.4-11.0); CREATININE 0.34 mg/dL (0.55-1.30); PHOSPHORUS 3.2 mg/dL (2.7-4.5); POTASSIUM 3.9 mmol/L (3.5-5.1); TOTAL BILIRUBIN 0.3 mg/dL (0.0-1.0)
--- NOTE | 2019-09-07 07:16 | NUR ---
ENDORSEMENT Report given to oncoming dayshift RN using SBAR format and pt care was endorsed. No signs of acute distress or discomfort noted.
[2019-09-07] MEDS: NAPH,MB-DB/K PH,MBDB 250 MG TAB NG SCH ×4 (08:38→23:18)
[2019-09-07] MEDS: FAMOTIDINE PF 20 MG/2 ML VIAL IVP SCH (08:38)
[2019-09-07] MEDS: CEFEPIME 1 GM in D5W 50 ML IV SCH ×2 (08:38→23:19)
[2019-09-07] MEDS: metroNIDAZOLE 500 mg/NS 100 ML IV SCH ×2 (08:39→23:18)
[2019-09-07] MEDS ORDERED: FUROSEMIDE 40 MG/4 ML VIAL IVP ONE (10:45)
--- NOTE | 2019-09-07 11:45 | NUR ---
1145 TITRATED PT TO SIMV 8, PS [address] HOLLIS. WILL CONTINUE TO MONITOR. Addendum: 09/07/19 at 1202 by Lyly Arechiga RT Amended: Links added.
[2019-09-07] MEDS: LORazepam 2 MG/ML VIAL IVP PRN (14:09)
--- NOTE | 2019-09-07 17:50 | NUR ---
Radiology called and stated confirmed with MD Morales to perform HIDA procedure tomorrow.
--- NOTE | 2019-09-07 18:30 | NUR ---
MD Hassan stated unable to perform surgery due to anatomy of GI in chest and recommended MD Booker on the case or transfer to another hospital. Informed MD Morales, ordered to request recommendations from primary tomorrow.
--- NOTE | 2019-09-07 18:50 | NUR ---
Received verbal consent for HIDA procedure with second nurse.
--- NOTE | 2019-09-07 19:20 | NUR ---
Endorsed patient and report to oncoming nurse and endorsed MD Morales's recommendations of MD Hassan requests to be passed to primary tomorrow. Patient in bed in no acute distress. Side rails x 3 up. Call light with in reach.
--- NOTE | 2019-09-07 20:00 | NUR ---
ASSESSMENT Pt non verbal, opens eyes to noxious stimulus. Orally intubated, tolerating SIMV setting. O2 saturation greater than 97%. PICC line present left upper arm dressing dry and intact, no redness or swelling noted @ site. Cross cath in use, urine yellow. Pt on low air loss mattress, posterior side skin is clean and intact, no redness noted. Bilateral heels with dark blisters, dressings intact.
--- NOTE | 2019-09-07 23:50 | NUR ---
TRANSFER OF CARE Report given to Sunil MUSA, for transfer of care.
[2019-09-08] VITALS (27 sets, daily range): BP systolic 93–119
--- NOTE | 2019-09-08 | NUR ---
PT ORALLY INTUBATED. RESPONDS TO NOXIOUS STIMULI. ORAL CARE GIVEN. SUCTIONED WITH MOD AMOUNT OF HUFFMAN COLORED THICK MUCUS OBTAINED. REPOSITIONED.
[2019-09-08] MEDS: IPRATROPIUM/ALBUTEROL SULFATE 3 ML AMPUL.NEB (DUONEB) INH SCH ×2 (01:02→20:20)
--- NOTE | 2019-09-08 04:00 | NUR ---
DOZES ON AND OFF. OGT FEEDING OFF FOR HIDA SCAN IN AM. ORAL CARE GIVEN.
[2019-09-08] MEDS ORDERED: LEVOTHYROXINE SODIUM 0.1 MG VIAL IVP ONE (05:45)
[2019-09-08] MEDS: LEVOTHYROXINE SODIUM 0.1 MG VIAL IVP SCH (05:47)
[2019-09-08] MEDS: KCL 20 mEq in D5/0.45NS 1000mL 1,000 ML IV SCH (05:48)
--- NOTE | 2019-09-08 06:00 | NUR ---
SUCTIONED AND TURNED Q2 HRS AND PRN. UO ADEQUATE. AM CARE. WATER FLUSH HELD. REMAINS IN GUARDED CONDITION.
[2019-09-08 06:10] LABS: EOSINOPHILS # (AUTO) 0.2 K/uL (0.0-0.4); HEMOGLOBIN 9.1 g/dL (14.0-18.0); LYMPHOCYTES # (AUTO) 0.8 K/uL (1.0-5.5)
[2019-09-08 06:20] LABS: ALBUMIN 1.5 g/dL (3.4-4.8); CALCIUM 7.6 mg/dL (8.4-11.0); CREATININE 0.26 mg/dL (0.55-1.30); PHOSPHORUS 3.5 mg/dL (2.7-4.5); POTASSIUM 3.4 mmol/L (3.5-5.1); TOTAL BILIRUBIN 0.2 mg/dL (0.0-1.0)
[2019-09-08 06:26] LABS: BASOPHILS % (AUTO) 0.2 % (0.0-2.0); EOSINOPHILS % (AUTO) 1.8 % (0.0-4.0); LYMPHOCYTES % (AUTO) 7.3 % (20.5-51.5); MEAN CORPUSCULAR HEMOGLOBIN 30 pg (27-31); MEAN CORPUSCULAR HGB CONC 34 % (32-36); MEAN CORPUSCULAR VOLUME 89 fL (79.0-98.0); MONOCYTES # (AUTO) 0.6 K/uL (0.0-1.0); MONOCYTES % (AUTO) 5.3 % (1.7-9.3); NEUTROPHILS % (AUTO) 85.4 % (40.0-70.0); PLATELET COUNT (AUTO) 341 K/uL (130-430); RED BLOOD CELL COUNT(AUTO) 3.02 MIL/uL (4.2-6.2); RED CELL DISTRIBUTION WIDTH 15.9 % (9.0-15.0); WHITE BLOOD COUNT (AUTO) 10.5 K/uL (4.8-10.8)
--- NOTE | 2019-09-08 07:24 | NUR ---
RECEIVED NURSING REPORT FROM PIPE BLANKS CUT OFF SAW OPERATORTABITHA PAIGE R.N
[2019-09-08] MEDS: NAPH,MB-DB/K PH,MBDB 250 MG TAB NG SCH ×4 (08:30→21:22)
[2019-09-08] MEDS: HYDROmorphone 1 MG INJ. 1 MG/ML AMPUL IM PRN ×2 (08:30→16:00)
[2019-09-08] MEDS: CEFEPIME 1 GM in D5W 50 ML IV SCH ×2 (08:31→21:21)
[2019-09-08] MEDS: FAMOTIDINE PF 20 MG/2 ML VIAL IVP SCH (08:31)
[2019-09-08] MEDS: metroNIDAZOLE 500 mg/NS 100 ML IV SCH ×2 (08:32→21:22)
--- NOTE | 2019-09-08 10:00 | NUR ---
Dr. THURSTON SEE PATIENT , ORDERED FOLLOW UP ABG, CHEST X-RAY, LAB IN A.M
--- NOTE | 2019-09-08 10:19 | NUR ---
[facility] with ACLS RN and RT in attendance.
--- NOTE | 2019-09-08 13:11 | NUR ---
AT 1020 A.M, SENT PATIENT TO C-T ROOM FOLLOW UP HIDA C-T SCAN, AT 1310 P.M COME BACK TO ICU ROOM 4, R.N STAY WITH PATIENT DURING THE PROCEDURE, THE VITAL SIGN IS STABLE DURING THE PROCEDURE TIME
--- NOTE | 2019-09-08 14:21 | NUR ---
Nutrition F/U note (short d/t high patient load) Patient was not in room during visit earlier. Per ICU nursing staff, pt was brought to CT scan this morning. RN with pt. Last BM 09/08/19 x1. Per EMR, pt is likely tolerating EN support. Per bed huddle discussion, pt was for PEG placement, but was not possible d/t malpositioned organs. No pressure injuries noted. Dietitian recommendation: *Continue Vital AF 1.2 at 30ml/hr via NGT. RD to follow up in 2-3 days. [place]FW[place], RD
--- NOTE | 2019-09-08 16:10 | NUR ---
PATIENT,S URINE OUTPUT SINCE 0.66-1600 P.M, ONLY 100 ML, REPORT TO Dr. CONTI, DOCTOR VERBALIZED IS ON THE WAY, WILL SEE PATIENT LATER Addendum: 09/08/19 at 1638 by Antolin Chahal RN PATIENT,S URINE OUTPUT SINCE 0600 A.M -1600 P.M, ONLY 100 ML, REPORT TO Dr. CONTI, DOCTOR VERBALIZED IS ON THE WAY, WILL SEE PATIENT LATER
[2019-09-08] MEDS ORDERED: KCL 20 mEq in 100 mL (PREMIX) 100 ML IV ONE (18:00)
--- NOTE | 2019-09-08 18:00 | NUR ---
AT 1740 P.M, SEE PATIENT ORDERED GIVE K-RIDER 20 MEQ IVPB X ONE, Dr. CONTI WAS CALLED PATIENT,S MOM AND EXPLAINED TO HER PATIENT NEEDS TO SURGERY PLAN FOR GALLBLADDER STONE,THE MOM REQUESTED THE SURGEON GIVE HER EXPLAIN, ORDERED CONSULT Dr. POTTER, WAITING FOR DOCTOR SEE PATIENT
--- NOTE | 2019-09-08 18:30 | NUR ---
ORDERED NPO NOW, IVF INCREASED TO 100 ML/HR
--- NOTE | 2019-09-08 19:05 | NUR ---
GIVE COMPLETE NURSING REPORT TO SPORTS MEDIATABITHA PAIGE R.N
--- NOTE | 2019-09-08 20:00 | NUR ---
OPENS EYES SPON. ORALLY INTUBATED. SUCTIONED WITH MOD AMOUNT OF THICK WHITE MUCUS OBTAINED. ORAL CARE GIVEN. EXTREMITIES CONTRACTED. OGT CLAMPED, FEEDING ON HOLD. LADY SCD'S IN PLACE. MURPHY CATH PATENT DRAINING CLEAR PADMINI URINE TO GRAVITY. SR. EDITH PICC LINE DRSG D/I. D 5 1/ NS + 20 MEQ KCL AT 100CC/HR.
--- NOTE | 2019-09-08 20:20 | NUR ---
DR POTTER HERE, SEEN PT. NOTIFIED ABOUT MOTHER OF PT WANTS TO TALK TO HIM TO EXPLAIN TO HER AND INFORM HER ABOUT SURGERY. NEW ORDERS GIVEN FOR WORDINGS IN SURGICAL CONSENT GIVEN.
--- NOTE | 2019-09-08 22:00 | NUR ---
SUCTIONED. TURNED. HS CARE GIVEN.
[2019-09-09] VITALS (29 sets, daily range): BP systolic 102–140
--- NOTE | 2019-09-09 | NUR ---
DOZES ON AND OFF. ORAL CAR DONE. SUCTIONED AGAIN WITH SAME RESULTS. REPOSITIONED.
[2019-09-09] MEDS: IPRATROPIUM/ALBUTEROL SULFATE 3 ML AMPUL.NEB (DUONEB) INH SCH ×4 (00:53→19:51)
--- NOTE | 2019-09-09 02:00 | NUR ---
SLEPT INTERMITTENTLY. SUCTIONED. TURNED. TONGUE ATTEMPTS TO PUSH ON ETT, GAGS ON ETT, BUCKS THE VENT.
--- NOTE | 2019-09-09 04:00 | NUR ---
OPENS EYES SPON. SUCTIONED AGAIN WITH SAME RESULTS. ORAL CARE GIVEN. TURNED.
--- NOTE | 2019-09-09 06:00 | NUR ---
SLEPT FOR LONG PERIODS OF TIME. SUCTIONED AND TURNED Q2 HRS AND PRN. UO ADEQUATE. REMAINS IN GUARDED CONDITION.
[2019-09-09] MEDS: KCL 20 mEq in D5/0.45NS 1000mL 1,000 ML IV SCH ×3 (06:05→18:31)
[2019-09-09] MEDS: LEVOTHYROXINE SODIUM 0.1 MG VIAL IVP SCH (06:05)
[2019-09-09 06:12] LABS: BASOPHILS # (AUTO) 0.1 K/uL (0.0-0.2); BASOPHILS % (AUTO) 1.1 % (0.0-2.0); EOSINOPHILS # (AUTO) 0.2 K/uL (0.0-0.4); EOSINOPHILS % (AUTO) 1.6 % (0.0-4.0); HEMATOCRIT 29.5 % (36-54); HEMOGLOBIN 9.9 g/dL (14.0-18.0); LYMPHOCYTES # (AUTO) 0.8 K/uL (1.0-5.5); LYMPHOCYTES % (AUTO) 8.8 % (20.5-51.5); MEAN CORPUSCULAR HEMOGLOBIN 30 pg (27-31); MEAN CORPUSCULAR HGB CONC 34 % (32-36); MEAN CORPUSCULAR VOLUME 90 fL (79.0-98.0); MONOCYTES # (AUTO) 0.4 K/uL (0.0-1.0); MONOCYTES % (AUTO) 4.6 % (1.7-9.3); NEUTROPHILS % (AUTO) 83.9 % (40.0-70.0); PLATELET COUNT (AUTO) 448 K/uL (130-430); RED BLOOD CELL COUNT(AUTO) 3.28 MIL/uL (4.2-6.2); RED CELL DISTRIBUTION WIDTH 15.7 % (9.0-15.0); WHITE BLOOD COUNT (AUTO) 9.5 K/uL (4.8-10.8)
[2019-09-09 06:48] LABS: ALBUMIN 1.6 g/dL (3.4-4.8); CALCIUM 7.5 mg/dL (8.4-11.0); CREATININE 0.28 mg/dL (0.55-1.30); POTASSIUM 3.8 mmol/L (3.5-5.1); TOTAL BILIRUBIN 0.2 mg/dL (0.0-1.0)
--- NOTE | 2019-09-09 07:15 | NUR ---
Received report to assume care of patient. Pt has a 7.5 ET taped 24cm lip line. Lots of clear frothy secretions suctioned from ET and mouth. Vent settings are SIMV 8/PS 10/ 450/ 30%/p5. No distress on these settings. HOB up. 02 sats 99%. Pt remains NPO with oral GT in place. Waiting for consent from pts mom for j tube placement and GB stone removal. Pt has a left upper arm pIC matilda place and arm swollen. Arm circ 40cm. One port of PICC line does not flush. IVF infusing at 100cc/hr. Sr on monitor. Cross with flaco urine in bag. Pt able to make eye contact but doesn't follow instructions. Abd not distended with bowel sounds. All extremities contracted and difficult ot lift off bed due to this. Both heels have foam dressings in place. Both dressings removed and left heel has a large black round wound. Right heel has a reed size wound with yellow drainage. Heel lift boots applied. and will plan to see if wound care team is aware. Will continue to monitor patient.
--- NOTE | 2019-09-09 09:30 | NUR ---
Dr. Lo in to see pt.
[2019-09-09] MEDS: FAMOTIDINE PF 20 MG/2 ML VIAL IVP SCH (09:49)
[2019-09-09] MEDS: CEFEPIME 1 GM in D5W 50 ML IV SCH ×2 (09:49→20:21)
[2019-09-09] MEDS: metroNIDAZOLE 500 mg/NS 100 ML IV SCH ×2 (09:50→20:22)
[2019-09-09] MEDS: NAPH,MB-DB/K PH,MBDB 250 MG TAB NG SCH ×4 (09:50→20:21)
--- NOTE | 2019-09-09 12:30 | NUR ---
Wound care nurse in ICU and informed of wounds to patient heals. He was unaware and no consult had been ordered. materials analyst services was present as well. Wound care nurse to come back later on for evaluation and treatment. Heel lift boots remain in place.
--- NOTE | 2019-09-09 15:30 | NUR ---
Dr. Morales in to see pt covering for Dr. Harden.
--- NOTE | 2019-09-09 15:50 | NUR ---
WOUND EVALUATION: Wound Consult received from Dr. Harden. Thank you, Dr. Harden, for the consult. Patient received in a Keegan Bed with an Isoflex GABBY mattress with low air loss therapy initiated, awake, obtunded. Patient is unable to turn in bed independently. Malik Score is an 11. Past Medical History: Hypertension, Hypothyroidism, history of Developmental Delay. Recent Labs: CBC 9.5, RBC 3.28, HGB 9.9, HCT 29.5, BUN 16, creatinine 0.28, GFR 351, glucose 110, calcium 7.5, AST 72, ALT 160, alkaline phosphatase 162, serum total protein 5.0, albumin 1.6, PTT 25.1. Intrinsic factors that delay wound healing: Hypoalbuminemia. Extrinsic factors that delay wound healing: Immobility. Microbiology: Blood culture results 2 negative. Urine culture results positive for Proteus mirabilis. MRSA screen results negative. Sputum culture results contaminated with saliva. Endotracheal culture results negative. Wound Assessment: 1. Left lateral heel: sDTI. Bulla is closed and has dark discoloration. No odor, no drainage. Ana Laura-bulla intact. Bulla measures 5.0 cm x 4.0 cm. 2. Left lateral foot, posterior to malleolus: Bulla. Bulla is closed and has serous fluid. No odor, no drainage. Ana Laura-bulla intact. Bulla measures 1.0 cm x 1.0 cm. 3. Right posterior heel: Bulla. Bulla is closed and has serous fluid. No odor, no drainage. Ana Laura-bulla intact. Bulla measures 2.0 cm x 2.5 cm. Recommend: Offload involved areas at all times by placing feet in heel lift boots. During hourly rounds check boots to ensure that involved areas are not touching boots. 4. Scrotal area: Erythema from IAD. 5. Perianal/Perineal area: Erythema from IAD. Recommend: Cleanse involved areas with mild soap and water. Pat dry. Apply antifungal powder to involved areas. Perform site care twice a day, and as needed for soiling. Also recommend: Reposition patient [id number] only every 2 hours with pillow support (keep one pillow underneath lower extremity on bed and one pillow in between knees and ankles at all times), and off-load pressure areas with pillows for pressure re-distribution. Offload, elevate and float bilateral feet/heels with HeeLift boots. During hourly rounds check boots to ensure that involved areas are not touching boots. Perform skin care and monitor skin integrity Q shift. Use moisture barrier cream on buttocks and other moisture susceptible areas QID and as needed for soiling. Maintain patient on a low air-loss mattress.
--- NOTE | 2019-09-09 17:05 | NUR ---
Dr. Hassan speaks with pts mom on the phone regarding proposed surgery. The patients mom would like to think about it some more.
--- NOTE | 2019-09-09 17:15 | NUR ---
Wound Care Evaluation Tyler wound care nurse in to see pt and evaluate wound. Measurements taken and documented. Heel lift protectors in place. Wounds left open to air at this time.
--- NOTE | 2019-09-09 19:10 | NUR ---
PM ASSESSMENT Pt in bed with eyes closed resting comfortably, no signs of acute distress or discomfort noted. VSS with SR seen on the monitor. Pt intubated with vent settings: SIMV 8, TV 450, Fio2 30%, PEEP of 5, PS 10. Pt tolerating settings well with O2 sats @ 98% and even and unlabored breathing. Pt has a EDITH picc line infusing IVF, PICC line dressing c/d/i. OGT noted. Cross cath noted draining urine to gravity. Bilateral heel boots noted protecting pt's heels. SCD's noted to pt's bilateral lower extremities. Bed is locked and in lowest position, call light within reach, will cont to monitor pt.
--- NOTE | 2019-09-09 19:13 | NUR ---
Report given to oncoming shift to assume care of patient.
[2019-09-09] MEDS: NYSTATIN 15 GM TOPICAL POWDER TP SCH (20:30)
--- NOTE | 2019-09-09 22:10 | NUR ---
Pt in bed with eyes closed resting comfortably, no signs of acute distress or discomfort noted. Pt repositioned at this time. Will cont to monitor pt.
[2019-09-10] VITALS (29 sets, daily range): BP systolic 123–157
[2019-09-10] MEDS: IPRATROPIUM/ALBUTEROL SULFATE 3 ML AMPUL.NEB (DUONEB) INH SCH ×2 (01:55→19:50)
--- NOTE | 2019-09-10 02:00 | NUR ---
Pt had a bowel movement at this time. Pt cleaned, marck-care performed, chucks replaced. Pt tolerated well, will cont to monitor pt.
[2019-09-10] MEDS: KCL 20 mEq in D5/0.45NS 1000mL 1,000 ML IV SCH ×2 (03:50→15:46)
[2019-09-10] MEDS: LEVOTHYROXINE SODIUM 0.1 MG VIAL IVP SCH (05:25)
[2019-09-10 06:43] LABS: ALBUMIN 1.6 g/dL (3.4-4.8); CALCIUM 7.3 mg/dL (8.4-11.0); CREATININE 0.26 mg/dL (0.55-1.30); POTASSIUM 3.5 mmol/L (3.5-5.1); TOTAL BILIRUBIN 0.2 mg/dL (0.0-1.0)
--- NOTE | 2019-09-10 07:15 | NUR ---
ENDORSEMENT Report given to oncoming dayshift RN using SBAR format and pt care was endorsed. No signs of acute distress or discomfort noted.
[2019-09-10 07:20] LABS: BASOPHILS # (AUTO) 0.1 K/uL (0.0-0.2); BASOPHILS % (AUTO) 1.1 % (0.0-2.0); EOSINOPHILS # (AUTO) 0.2 K/uL (0.0-0.4); EOSINOPHILS % (AUTO) 2.9 % (0.0-4.0); HEMATOCRIT 28.1 % (36-54); HEMOGLOBIN 9.3 g/dL (14.0-18.0); LYMPHOCYTES # (AUTO) 0.9 K/uL (1.0-5.5); LYMPHOCYTES % (AUTO) 10.9 % (20.5-51.5); MEAN CORPUSCULAR HEMOGLOBIN 30 pg (27-31); MEAN CORPUSCULAR HGB CONC 33 % (32-36); MEAN CORPUSCULAR VOLUME 91 fL (79.0-98.0); MONOCYTES # (AUTO) 0.6 K/uL (0.0-1.0); MONOCYTES % (AUTO) 7.6 % (1.7-9.3); NEUTROPHILS # (AUTO) 6.2 K/uL (1.8-7.7); NEUTROPHILS % (AUTO) 77.5 % (40.0-70.0); PLATELET COUNT (AUTO) 491 K/uL (130-430); RED CELL DISTRIBUTION WIDTH 16.2 % (9.0-15.0); WHITE BLOOD COUNT (AUTO) 7.9 K/uL (4.8-10.8)
--- NOTE | 2019-09-10 07:20 | NUR ---
RECEIVED NURSING REPORT FROM HEAD TURNING MACHINE OPERATOR JOSEPH Cornejo
[2019-09-10] MEDS: NAPH,MB-DB/K PH,MBDB 250 MG TAB NG SCH ×4 (08:30→20:02)
[2019-09-10] MEDS: CEFEPIME 1 GM in D5W 50 ML IV SCH (08:49)
[2019-09-10] MEDS: metroNIDAZOLE 500 mg/NS 100 ML IV SCH (08:50)
[2019-09-10] MEDS: FAMOTIDINE PF 20 MG/2 ML VIAL IVP SCH (08:50)
[2019-09-10] MEDS: NYSTATIN 15 GM TOPICAL POWDER TP SCH ×2 (08:50→20:02)
--- NOTE | 2019-09-10 09:40 | NUR ---
SEE PATIENT , ORDERED GIVE LASIX 40 M,G IVP X ONCE, AND FOLLOW UP CHEST X-RAY, ABG, LAB IN A.M
[2019-09-10] MEDS ORDERED: FUROSEMIDE 40 MG/4 ML VIAL IVP ONE (11:00)
--- NOTE | 2019-09-10 13:30 | NUR ---
PATIENT HAD 2 TIMES, EX-LARGE AMOUNT YELLOW COLOR WATERLY DIARRHEA, REPORTED TO Dr. CONTI, ORDERED WILL COLLECTION STOOL C-DIFF, AND ON FLEXI-SEAL TUBE FOR MONITOR
--- NOTE | 2019-09-10 15:40 | NUR ---
DR. CONTI HERE TO SEE PATIENT, WITH ORDERS CARRIED OUT. MESHA WATSON CALLED FOR PALLIATIVE CONSULT. WILL SEE PT MATEUS. PER DR. CONTI'S CONVERSATION WITH DR. ZIMMER.
--- NOTE | 2019-09-10 19:04 | NUR ---
GIVE COMPLETE NURSING REPORT TO TRAVEL MANAGER JOSEPH Cornejo
--- NOTE | 2019-09-10 19:10 | NUR ---
PM ASSESSMENT Pt in bed with eyes closed resting comfortably, no signs of acute distress or discomfort noted. VSS with SR seen on the monitor. Pt intubated with vent settings: SIMV 8, TV 450, Fio2 30%, PEEP of 5, PS 10. Pt tolerating settings well with O2 sats @ 99% and even and unlabored breathing. Pt has a EDITH picc line infusing IVF, PICC line dressing c/d/i. OGT noted. Cross cath noted draining urine to gravity. Bilateral heel boots noted protecting pt's heels. SCD's noted to pt's bilateral lower extremities. Flexiseal noted draining brown loose stool. Bed is locked and in lowest position, call light within reach, will cont to monitor pt.
--- NOTE | 2019-09-10 22:00 | NUR ---
Pt in bed with eyes closed resting comfortably. No signs of acute distress or discomfort noted. Pt repositioned at this time. Pt tolerated well. Bed is locked and in lowest position, call light within reach, will cont to monitor pt.
--- NOTE | 2019-09-10 23:10 | NUR ---
DR. PILAR MCCALLUM PAGED AT THIS TIME FOR ORDERS. SPOKE WITH CADY AT THE EXCHANGE.
[2019-09-11] VITALS (30 sets, daily range): BP systolic 101–157
[2019-09-11] MEDS: IPRATROPIUM/ALBUTEROL SULFATE 3 ML AMPUL.NEB (DUONEB) INH SCH ×4 (00:49→20:35)
[2019-09-11] MEDS: KCL 20 mEq in D5/0.45NS 1000mL 1,000 ML IV SCH ×3 (00:58→23:38)
--- NOTE | 2019-09-11 02:46 | NUR ---
Pt in bed with eyes closed resting comfortably, no signs of acute distress or discomfort noted. Pt intubated, vent settings: SIMV 8, TV 450, Fio2 30%, PEEP of 5, and PS 10, tolerating well with O2 sats @ 98% and even and unlabored breathing. Bed is locked and in lowest position, call light within reach, will cont to monitor pt.
[2019-09-11] MEDS: LEVOTHYROXINE SODIUM 0.1 MG VIAL IVP SCH (05:02)
--- NOTE | 2019-09-11 06:21 | NUR ---
DR. PILAR MCCALLUM PAGED FOR ORDERS AT THIS TIME. SPOKE WITH CADY AT THE EXCHANGE.
[2019-09-11 06:37] LABS: BASOPHILS # (AUTO) 0.1 K/uL (0.0-0.2); BASOPHILS % (AUTO) 1.5 % (0.0-2.0); EOSINOPHILS # (AUTO) 0.2 K/uL (0.0-0.4); EOSINOPHILS % (AUTO) 1.9 % (0.0-4.0); HEMATOCRIT 32.3 % (36-54); HEMOGLOBIN 10.8 g/dL (14.0-18.0); LYMPHOCYTES % (AUTO) 12.1 % (20.5-51.5); MEAN CORPUSCULAR HEMOGLOBIN 30 pg (27-31); MEAN CORPUSCULAR HGB CONC 33 % (32-36); MEAN CORPUSCULAR VOLUME 91 fL (79.0-98.0); MONOCYTES # (AUTO) 0.7 K/uL (0.0-1.0); MONOCYTES % (AUTO) 8.5 % (1.7-9.3); NEUTROPHILS # (AUTO) 6.3 K/uL (1.8-7.7); PLATELET COUNT (AUTO) 564 K/uL (130-430); RED BLOOD CELL COUNT(AUTO) 3.56 MIL/uL (4.2-6.2); RED CELL DISTRIBUTION WIDTH 16.2 % (9.0-15.0); WHITE BLOOD COUNT (AUTO) 8.3 K/uL (4.8-10.8)
[2019-09-11 06:51] LABS: ALBUMIN 1.9 g/dL (3.4-4.8); CALCIUM 7.7 mg/dL (8.4-11.0); CREATININE 0.34 mg/dL (0.55-1.30); TOTAL BILIRUBIN 0.2 mg/dL (0.0-1.0)
--- NOTE | 2019-09-11 07:02 | NUR ---
ENDORSEMENT Report given to oncoming dayshift RN using SBAR format and pt care was endorsed. No signs of acute distress or discomfort noted.
[2019-09-11 07:19] LABS: BILIRUBIN,DIRECT 0.1 mg/dL (0.0-0.3)
--- NOTE | 2019-09-11 07:50 | NUR ---
AM ASSESSMENT. PT ON A VENTILATOR, ORAL CARE RENDERED, GENTLY TURNED AND REPOSITIONED IN BED, EDEMA TO ALL EXTREMITIES, FLEXISEAL IN PLACE, CLEANED BUTTOCKS WITH WET TOWEL, SHEETS CHANGED NEEDED, MURPHY CATHETER DRAINING, ON IVF D5 1/2 NS WITH 20 MEQ KCL AT 100 ML PER HR.
[2019-09-11] MEDS: FAMOTIDINE PF 20 MG/2 ML VIAL IVP SCH (09:21)
[2019-09-11] MEDS: metroNIDAZOLE 500 mg/NS 100 ML IV SCH ×2 (09:22→21:56)
[2019-09-11] MEDS: NYSTATIN 15 GM TOPICAL POWDER TP SCH ×2 (09:23→21:56)
[2019-09-11] MEDS: NAPH,MB-DB/K PH,MBDB 250 MG TAB NG SCH ×4 (09:26→21:56)
--- NOTE | 2019-09-11 10:00 | NUR ---
HYGIENE. FOAM DRESSINGS FROM HEELS AND LEFT ANKLE REMOVED, SKIN CARE USING SALINE AND PATTED DRY ON AFFECTED PART, FOAM DRESSING APPLIED, TURNED PT TO HIS SIDE FOR COMFORT, HEELS OFF THE MATTRESS.
[2019-09-11] MEDS: CEFEPIME 1 GM in D5W 50 ML IV SCH ×2 (10:47→21:56)
--- NOTE | 2019-09-11 12:00 | NUR ---
Tower Observer Note Received the order to support family. Conducted a chart review and spoke with patient's nurse, Clara MUSA. Patient has a long history of CP and is nonverbal. He has been living at [facility]. Patient is on a vent. Patient may need a trach, lap kathy and j tube. Patient's mother needs to make a decision if patient is to have surgery. Dr Harden has called in a palliative care consult with [facility]/ Dr Matthew. Patient's mother is unable to meet with Dr Matthew at the hospital today. AQUATICS LIFEGUARD phoned Nahomy, , with [facility]. They cannot accept patient with a vent. Patient would need subacute/LTAC placement. AQUATICS LIFEGUARD phoned patient's mother, Rafaela Espino, . She is home caring for her daughter's three children. Her son also lives in the home with his child. Rafaela is also caring for her who is undergoing treatment for colon cancer. She is aware that patient would need another placement facility due to the vent, but she is fearful of the care he would receive. She absolutely cannot care for patient at her home. Rafaela is uncertain about surgery for patient. She wants to pray further and stated that she should know by September 15, what her decision would be. She is aware that Dr Matthew is expected to call today to discuss palliative care. Reviewed meaning of hospice and palliative care. Offered support. Provided Rafaela with my contact information and will remain available. Addendum: 09/11/19 at 1248 by Bozena Neely LCSW Spoke with Dr Matthew. He stated that patient's mother is still deciding if she would like no further surgery/palliative care for patient. If she decides on palliative, he would refer to [facility] for placement near [facility]'s home in [place].
--- NOTE | 2019-09-11 12:38 | NUR ---
PALLIATIVE. DR ZIMMER CAME IN AND EXAMINED PT. HE ALSO CALLED PT'S MOTHER BAYRON AND DISCUSSED TREATMENT, DNR, HOSPICE.
--- NOTE | 2019-09-11 13:00 | NUR ---
. DR ZIMMER LEFT THE UNIT WITH NO NEW ORDERS.
--- NOTE | 2019-09-11 15:08 | NUR ---
WOUND RE-EVALUATION: Late note for 09/11/19 at 1508 secondary to patient care. Patient received in a Woods Cross Bed with an Isoflex GABBY mattress with low air loss therapy initiated, awake, obtunded. Patient is unable to turn in bed independently. Malik Score is an 11. Intrinsic factors that delay wound healing: Hypoalbuminemia. Extrinsic factors that delay wound healing: Immobility. Wound Assessment: 1. Left lateral heel: sDTI. Bulla is closed and has dark discoloration. No odor, no drainage. Ana Laura-bulla intact. Bulla measures 5.0 cm x 4.0 cm. 2. Left lateral foot, posterior to malleolus: Bulla. Bulla is closed and has serous fluid. No odor, no drainage. Ana Laura-bulla intact. Bulla measures 1.0 cm x 1.0 cm. 3. Right posterior heel: Bulla. Bulla is closed and has serous fluid. No odor, no drainage. Ana Laura-bulla intact. Bulla measures 2.0 cm x 2.5 cm. Recommend continue: Offload involved areas at all times by placing feet in heel lift boots. During hourly rounds check boots to ensure that involved areas are not touching boots. 4. Scrotal area: Erythema from IAD. 5. Perianal/Perineal area: Erythema from IAD. Recommend continue: Cleanse involved areas with mild soap and water. Pat dry. Apply antifungal powder to involved areas. Perform site care twice a day, and as needed for soiling. Also recommend continue: Reposition patient [id number] only every 2 hours with pillow support (keep one pillow underneath lower extremity on bed and one pillow in between knees and ankles at all times), and off-load pressure areas with pillows for pressure re-distribution. Offload, elevate and float bilateral feet/heels with HeeLift boots. During hourly rounds check boots to ensure that involved areas are not touching boots. Perform skin care and monitor skin integrity Q shift. Use moisture barrier cream on buttocks and other moisture susceptible areas QID and as needed for soiling. Maintain patient on a low air-loss mattress.
--- NOTE | 2019-09-11 16:23 | NUR ---
Nutrition F/U RD reviewed pt's current EMR including diet Hx, physician notes, nursing notes, pertinent labs/meds/procedures, care trends, and care activity. Current Diet Order: NPO x2 days Subjective information: Nutrition Consult received for sDTI L Lateral Heel on 09/09/191803. Pt was seen resting in bed. Evidence of TF pump but no nutrition support infusing. Per RN, pt was seen by palliative care physician today who also spoke w/ pt's mother via phone call. Family is still deciding on plans for pt. RN stated pt has a hiatal hernia, and NGT is unable to be placed safely for feeding. Pt continues at increased risk for malnutrition. Current PO intake: N/A on EN support NEW Estimated Energy Expenditure (kcals/day) (Minute Volume: 12.8/Temperature: 36.3 degrees Celsius) 1497 kcal/day (REE PSU for critical illness on vent) Estimated Protein Required (g/day) 78-104 gm/day (1.5-2 gm/kg Adj IBW for sepsis) Estimated Fluid Required (l/day) 1.6-1.8 L/day (1 ml/kcal/day for maintenance) Problem/Etiology/Signs/Symptoms Inadequate nutritional intakes related to metabolic demands as evidenced by NPO status and estimated nutritional requirements for sepsis. *ongoing -- no route for nutrition support available Inadequate EN intake r/t current EN regimen AEB EN regimen meets <70% of est needs and need for PEG to meet est needs. *ongoing -- no route for nutrition support available Expected Outcomes/Goals - Monitor EN tolerance and intake w/ goal of pt meeting at least 75% of estimated nutritional needs, labs trending WNL, normal GI function, and skin integrity/wt maintenance Dietitian Recommendations * Consider nutrition support if/when medically appropriate Follow Up High Risk: F/U in 2-3 days
--- NOTE | 2019-09-11 16:31 | NUR ---
Dietitian Recommendations * Consider nutrition support if/when medically appropriate LP, RD Please refer to Nutrition F/U for details.
--- NOTE | 2019-09-11 17:00 | NUR ---
. DR CONTI IN THE PATIENT'S ROOM, EXAMINING PT. THEN SHE STEPPED OUT OF THE ROOM, SHE DIALED PT'S MOTHER NUMBER, BAYRON IN THE STATION.
[2019-09-11] MEDS ORDERED: FUROSEMIDE 20 MG/2 ML VIAL IVP ONE (17:30)
--- NOTE | 2019-09-11 18:50 | NUR ---
FAMILY. PT'S MOTHER BAYRON AND HER FAMILY IN THE ROOM. UPDATE GIVEN ON HIS STATUS.
--- NOTE | 2019-09-11 19:30 | NUR ---
Opening Note Received plan of care via sbar from endorsing nurse Clara MUSA. Completed patient round.
--- NOTE | 2019-09-11 22:30 | NUR ---
Patient family verbalized that they want patient to be DNR. Informed Dr. Harden and placed documentation in chart.
--- NOTE | 2019-09-11 22:30 | NUR ---
Dr. Lo at bedside no new orders.
[2019-09-12] VITALS (29 sets, daily range): BP systolic 91–144
[2019-09-12] MEDS: IPRATROPIUM/ALBUTEROL SULFATE 3 ML AMPUL.NEB (DUONEB) INH SCH ×4 (00:30→20:05)
--- NOTE | 2019-09-12 01:00 | NUR ---
Checked residual from NG tube and aspirated 110 ml of white brown fluid. Will continue to hold feeding until residual is 50 ml or less. Addendum: 09/13/19 at 0147 by Hugo Tomlinson RN Date is for 09/13/19
--- NOTE | 2019-09-12 01:00 | NUR ---
Checked residual and pulled 110 ml of white brown fluid from NG tube. Will hold feeding until residual is down to 50 ml or less. Addendum: 09/13/19 at 0147 by Hugo Tomlinson RN date is for 09/13/19
[2019-09-12] MEDS: LEVOTHYROXINE SODIUM 0.1 MG VIAL IVP SCH (05:46)
--- NOTE | 2019-09-12 07:33 | NUR ---
Closing Note Provided plan of care via sbar to receiving nurse Angela MUSA.
--- NOTE | 2019-09-12 07:40 | NUR ---
Opening Note Patient received resting in bed at this time. Patient connected to playground monitor with NSR. Patient intubated and on ventilator breathing evenly and unlabored. Patient receiving IV fluids and tubefeeding. Patient has a daugherty catheter draining yellow urine. Safety precautions enforced.
[2019-09-12] MEDS: NAPH,MB-DB/K PH,MBDB 250 MG TAB NG SCH ×4 (08:20→20:07)
[2019-09-12] MEDS: FAMOTIDINE PF 20 MG/2 ML VIAL IVP SCH (08:20)
[2019-09-12] MEDS: metroNIDAZOLE 500 mg/NS 100 ML IV SCH ×2 (08:21→22:41)
[2019-09-12] MEDS: CEFEPIME 1 GM in D5W 50 ML IV SCH ×2 (08:21→20:07)
[2019-09-12] MEDS: NYSTATIN 15 GM TOPICAL POWDER TP SCH ×2 (08:22→20:08)
--- NOTE | 2019-09-12 09:30 | NUR ---
RT NOTES Vent settings to CPAP [address] Lo's order. No adverse reactions noted.
--- NOTE | 2019-09-12 11:00 | NUR ---
MD Rounds Dr. Suresh at bedside examining patient. No new orders received.
--- NOTE | 2019-09-12 12:00 | NUR ---
RN Rounds Patient resting at this time. Patient in no signs of distress.
[2019-09-12] MEDS: KCL 20 mEq in D5/0.45NS 1000mL 1,000 ML IV SCH (12:40)
[2019-09-12 13:15] LABS: ALBUMIN 1.7 g/dL (3.4-4.8); CALCIUM 7.5 mg/dL (8.4-11.0); CREATININE 0.29 mg/dL (0.55-1.30); POTASSIUM 3.9 mmol/L (3.5-5.1); TOTAL BILIRUBIN 0.2 mg/dL (0.0-1.0)
--- NOTE | 2019-09-12 13:49 | NUR ---
CHG CHG bath provided and linens changed. Patient tolerated procedure well. No signs of distress noted.
--- NOTE | 2019-09-12 15:15 | NUR ---
MD Rounds Dr. Lo at bedside examining patient. New orders received.
[2019-09-12] MEDS ORDERED: FUROSEMIDE 20 MG/2 ML VIAL IVP ONE (15:30)
--- NOTE | 2019-09-12 15:30 | NUR ---
Per Dr. Lo, patien't mother made aware regarding plans to extubate but mother asked if extubation can be postponed until she is able to be with patient on Sunday. Patient remains to be in stable condition at this time.
[2019-09-12] MEDS: 0.45% NACL 1,000 ML IV SCH (15:56)
--- NOTE | 2019-09-12 16:00 | NUR ---
RN Rounds Patient resting comfortably in bed at this time. Patient in no signs of distress. Safety precautions enforced.
--- NOTE | 2019-09-12 16:30 | NUR ---
MD Rounds Dr. Price at bedside examining patient. No new orders received.
--- NOTE | 2019-09-12 17:20 | NUR ---
RT NOTES Vent settings to SIMV 8 PS 10 due to Apnea keeps getting triggered, pt appears to be tired. RN made aware.
--- NOTE | 2019-09-12 17:30 | NUR ---
MD Rounds Dr. Suresh at bedside examining patient. No new orders received.
--- NOTE | 2019-09-12 18:46 | NUR ---
RN Rounds Family at bedside at this time. Updated family regarding patient condition and plan of care. Confirmed with family regarding change of code status to DNR.
--- NOTE | 2019-09-12 19:19 | NUR ---
Closing Notes Patient endorsed to cnc machinist 2nd shift RN using SBAR format. Patient in no signs of distress.
--- NOTE | 2019-09-12 19:23 | NUR ---
Opening Note Received plan of care via sbar from Angela MUSA. Completed patient round.
--- NOTE | 2019-09-12 23:40 | NUR ---
Checked residual from NG tube and aspirated 140 ml of white brown fluid. Turned feeding off.
[2019-09-13] VITALS (35 sets, daily range): BP systolic 95–175
[2019-09-13] MEDS: IPRATROPIUM/ALBUTEROL SULFATE 3 ML AMPUL.NEB (DUONEB) INH SCH ×4 (00:21→20:26)
--- NOTE | 2019-09-13 01:00 | NUR ---
Checked residual from NG tube and aspirated 110 ml of white brown fluid. Will continue to hold feeding until residual is 50 ml or less.
--- NOTE | 2019-09-13 02:15 | NUR ---
Checked residuals and aspirated 40 ml of baumann colored fluid. Restarted feeding at 40 ml/hr. Tubing and Vital AF 1.2 changed.
[2019-09-13] MEDS: LEVOTHYROXINE SODIUM 0.1 MG VIAL IVP SCH (05:22)
[2019-09-13 07:01] LABS: BASOPHILS # (AUTO) 0.1 K/uL (0.0-0.2); BASOPHILS % (AUTO) 1.3 % (0.0-2.0); EOSINOPHILS # (AUTO) 0.2 K/uL (0.0-0.4); EOSINOPHILS % (AUTO) 2.7 % (0.0-4.0); HEMATOCRIT 26.3 % (36-54); HEMOGLOBIN 8.9 g/dL (14.0-18.0); LYMPHOCYTES # (AUTO) 1.4 K/uL (1.0-5.5); LYMPHOCYTES % (AUTO) 19.4 % (20.5-51.5); MEAN CORPUSCULAR HEMOGLOBIN 31 pg (27-31); MEAN CORPUSCULAR HGB CONC 34 % (32-36); MEAN CORPUSCULAR VOLUME 91 fL (79.0-98.0); MONOCYTES # (AUTO) 0.5 K/uL (0.0-1.0); MONOCYTES % (AUTO) 7.2 % (1.7-9.3); NEUTROPHILS # (AUTO) 4.8 K/uL (1.8-7.7); NEUTROPHILS % (AUTO) 69.4 % (40.0-70.0); PLATELET COUNT (AUTO) 550 K/uL (130-430); RED BLOOD CELL COUNT(AUTO) 2.89 MIL/uL (4.2-6.2); RED CELL DISTRIBUTION WIDTH 16.2 % (9.0-15.0)
--- NOTE | 2019-09-13 07:05 | NUR ---
RT NOTE: 0701 Pt received on SIMV settings from [facility]. Placed on CPAP 5, PS 10 at this time as per Dr nguyen. RN aware. Pt tolerating change well. Will continue to monitor. Addendum: 09/13/19 at 0837 by Sara Owens RT Amended: Links added.
[2019-09-13 07:12] LABS: ALBUMIN 1.6 g/dL (3.4-4.8); CALCIUM 7.6 mg/dL (8.4-11.0); CREATININE 0.3 mg/dL (0.55-1.30); POTASSIUM 3.4 mmol/L (3.5-5.1); TOTAL BILIRUBIN 0.2 mg/dL (0.0-1.0)
--- NOTE | 2019-09-13 07:14 | NUR ---
Closing Note Provided plan of care via sbar to receiving nurse Fatimah RN. Completed patient round.
--- NOTE | 2019-09-13 07:30 | NUR ---
AM NOTES: Received report from Hugo MUSA. patient open eyes, nonverbal. intubated ETT size 7.5, lip line 24cm.vent setting changed by RT per ordered by Dr Lo cpap 5, Ps 10, fio2 30% saturation 96- 97%.oral secretion suction, am care provided. keep hob elevated to prevent aspiration. OGT patent, 10 cc of residual noted. Feeding vital AF @40ml/hr. picc line at left UA with 2 port, blood return noted. arm circumference 37cm. flexiseal draining yellowish color.daugherty catheter patent,draining via gravity yellow output. turn and reposition with pillow support. edmund feet with heel protector, scd in placed. bed is low and lock position. bed alarm on. scd for dvt prophylaxis.air mattress. will monitor.
[2019-09-13] MEDS: NAPH,MB-DB/K PH,MBDB 250 MG TAB NG SCH ×4 (09:07→21:36)
[2019-09-13] MEDS: CEFEPIME 1 GM in D5W 50 ML IV SCH ×2 (09:07→21:34)
[2019-09-13] MEDS: FAMOTIDINE PF 20 MG/2 ML VIAL IVP SCH (09:07)
[2019-09-13] MEDS: NYSTATIN 15 GM TOPICAL POWDER TP SCH ×2 (09:08→21:37)
--- NOTE | 2019-09-13 09:10 | NUR ---
ABG result: paged MD thrasher for Abg result. s/w yohan answering services awaited to callback.
[2019-09-13] MEDS: metroNIDAZOLE 500 mg/NS 100 ML IV SCH ×2 (09:58→21:34)
[2019-09-13] MEDS ORDERED: POTASSIUM CHLORIDE 20 MEQ/PKT PACKET NG ONE (10:15)
--- NOTE | 2019-09-13 11:30 | NUR ---
MD Rounds: seen by MD Lo and Kerwin.
--- NOTE | 2019-09-13 11:40 | NUR ---
Picc line dressing changed. aseptic technique performed.
--- NOTE | 2019-09-13 13:00 | NUR ---
PATIENT RESTING: Patient resting quietly. No acute distress noted. Vital signs within normal range.
--- NOTE | 2019-09-13 15:30 | NUR ---
Suggest wounds be cleaned with Normal Saline, apply a thin coat of hydrogel and apply foam dressing.
--- NOTE | 2019-09-13 16:00 | NUR ---
PATIENT RESTING: Patient resting quietly. No acute distress noted. Vital signs within normal range.
--- NOTE | 2019-09-13 18:28 | NUR ---
all needs mets. no significant changes of condition noted. patient tolerated the cpap saturation 97%. no s/s of respiratory distress. vital sign stable, afebrile. tolerated feeding vital AF 1.2 @ 50ml/hr no residual noted. water flush 100ml. keep hob elevated to prevent aspiration 30degree. will monitor.
--- NOTE | 2019-09-13 20:00 | NUR ---
initial note Received patient from out going day shift nurse. Patient awake with both eyes opened. no signs of respiratory distress or discomfort noted. Ventilator support in place via ETT 7.5 with settings as follows: Cpap 5, FIO2 30 % PS 10. Chest rising equally BL with BL rhonchi. Contracted in R upper and BL LE. Unable to follow commands as patient has Hx of mental retardation. Requiring frequent repositioning which will be provided as per unit protocol. Cross catheter in place and draining urine to gravity. Call light within reach but patient is unable to use therefore nurse will make frequent rounds to assure patient's safety and comfort. HOB at 30 degrees and placed to lowest settings. will continue to monitor as per unit protocol.
[2019-09-13] MEDS: 0.45% NACL 1,000 ML IV SCH (21:32)
--- NOTE | 2019-09-13 22:30 | NUR ---
Bed bath provided after patient appeared uncomfortable. Repositioned for comfort and linen changed. patient tolerated well.
[2019-09-14] VITALS (29 sets, daily range): BP systolic 100–165
[2019-09-14] MEDS: IPRATROPIUM/ALBUTEROL SULFATE 3 ML AMPUL.NEB (DUONEB) INH SCH ×4 (01:18→19:58)
--- NOTE | 2019-09-14 02:46 | NUR ---
easy to arouse, responding to touch. unable to follow commands and requires total assist in turning and repositioning. IV continues to infuse without signs of infiltration or infection to Picc line site. requires occasional suctioning due to excess secretions. VSS and no signs of respiratory distress noted at this time. will continue to monitor.
[2019-09-14] MEDS: LEVOTHYROXINE SODIUM 0.1 MG VIAL IVP SCH (06:27)
[2019-09-14 06:30] LABS: CALCIUM 7.9 mg/dL (8.4-11.0); CREATININE 0.3 mg/dL (0.55-1.30); POTASSIUM 3.7 mmol/L (3.5-5.1)
--- NOTE | 2019-09-14 06:52 | NUR ---
tolerating vent settings on c-pap without changes from previous note. morning care provided with total assist. tolerated well. VSS. will continue to monitor .
[2019-09-14 06:53] LABS: BASOPHILS # (AUTO) 0.1 K/uL (0.0-0.2); EOSINOPHILS # (AUTO) 0.3 K/uL (0.0-0.4); EOSINOPHILS % (AUTO) 3.4 % (0.0-4.0); HEMOGLOBIN 8.8 g/dL (14.0-18.0); LYMPHOCYTES # (AUTO) 1.3 K/uL (1.0-5.5); LYMPHOCYTES % (AUTO) 14.8 % (20.5-51.5); MEAN CORPUSCULAR HEMOGLOBIN 31 pg (27-31); MEAN CORPUSCULAR HGB CONC 34 % (32-36); MEAN CORPUSCULAR VOLUME 91 fL (79.0-98.0); MONOCYTES # (AUTO) 0.7 K/uL (0.0-1.0); MONOCYTES % (AUTO) 8.1 % (1.7-9.3); NEUTROPHILS # (AUTO) 6.3 K/uL (1.8-7.7); NEUTROPHILS % (AUTO) 72.7 % (40.0-70.0); PLATELET COUNT (AUTO) 526 K/uL (130-430); RED BLOOD CELL COUNT(AUTO) 2.87 MIL/uL (4.2-6.2); RED CELL DISTRIBUTION WIDTH 16.3 % (9.0-15.0); WHITE BLOOD COUNT (AUTO) 8.6 K/uL (4.8-10.8)
--- NOTE | 2019-09-14 07:21 | NUR ---
RECEIVED NURSING REPORT FROM CAD DRAFTSMAN JUAN M Cornejo
[2019-09-14] MEDS: CEFEPIME 1 GM in D5W 50 ML IV SCH ×2 (08:39→22:01)
[2019-09-14] MEDS: metroNIDAZOLE 500 mg/NS 100 ML IV SCH ×2 (08:40→22:02)
[2019-09-14] MEDS: FAMOTIDINE PF 20 MG/2 ML VIAL IVP SCH (08:40)
[2019-09-14] MEDS: NAPH,MB-DB/K PH,MBDB 250 MG TAB NG SCH ×4 (08:40→22:01)
[2019-09-14] MEDS: NYSTATIN 15 GM TOPICAL POWDER TP SCH ×2 (08:41→22:02)
--- NOTE | 2019-09-14 10:21 | NUR ---
AT 1013 A.M, SEE PATIENT, NO NEW ORDER AT THIS TIME
--- NOTE | 2019-09-14 11:22 | NUR ---
AT 1100 A.M, Dr. CONTI SEE PATIENT, ORDERED FOLLOW UP LAB IN A.M
[2019-09-14] MEDS: LOPERAMIDE HCL 2 MG CAPSULE NG PRN (12:07)
--- NOTE | 2019-09-14 13:00 | NUR ---
SEE PATIENT, AND UPDATED PATIENT,S CONDITION WITH FAMILIES AT BEDSIDE
[2019-09-14] MEDS ORDERED: FUROSEMIDE 40 MG/4 ML VIAL IVP ONE (13:15)
[2019-09-14] MEDS: MORPHINE 2 MG/ML INJ. SYRINGE IVP PRN (13:39)
--- NOTE | 2019-09-14 14:04 | NUR ---
[address] BERTRAND OSBORNE. PLACED ON 2L NC. SAT 98%. Addendum: 09/14/19 at 1406 by Josseline Ceja RT Amended: Links added.
--- NOTE | 2019-09-14 14:05 | NUR ---
AT 1350 P.M, DR. THURSTON ORDERED EXTUBATED ( THE FAMILIES REQUESTED ) PATIENT AT BEDSIDE BY ENRIQUE Thomas, THEN KEEP OG-TUBE FOR FEEDING AND WEAR O2 NASAL CANNULA 2 LPM, O2 SAT. 95%, KEEP CLOSE MONITOR
[2019-09-14] MEDS: 0.45% NACL 1,000 ML IV SCH ×2 (15:15→23:01)
--- NOTE | 2019-09-14 19:17 | NUR ---
GIVE COMPLETE NURSING REPORT TO ARTIFICIAL FLOWERS SUPERVISOR BELEN Cornejo
--- NOTE | 2019-09-14 20:04 | NUR ---
Patient awake eye opening noted is non - verbal HOB kept elevated chest movement symmetrical off loading with pillows comfort measures implemented Respirations Regular also unlabored 02 SAT 96 %
--- NOTE | 2019-09-14 21:06 | NUR ---
Turning & off loading REPOSITION on two hour schedule General EDEMA is noted contractures , no SOB comfort measures helpful .
[2019-09-14] MEDS: MENTHOL/ZINC OXIDE 113 GM OINT. TP PRN (22:01)
--- NOTE | 2019-09-14 22:35 | NUR ---
Calmoseptine ointment applied to marck- buttocks areas , patient kept in up right position & turning on schedule TUBE FEEDING Residual 10 ML .
[2019-09-15] VITALS (17 sets, daily range): BP systolic 91–119
[2019-09-15] MEDS: IPRATROPIUM/ALBUTEROL SULFATE 3 ML AMPUL.NEB (DUONEB) INH SCH ×4 (01:00→20:13)
--- NOTE | 2019-09-15 02:35 | NUR ---
Cefepime 1 GM IVPB administer as ordered patient is awake non verbal no s/sx of ADVERSE reaction Respirations Regular & unlabored .
[2019-09-15 06:32] LABS: BASOPHILS % (AUTO) 0.3 % (0.0-2.0); EOSINOPHILS # (AUTO) 0.3 K/uL (0.0-0.4); EOSINOPHILS % (AUTO) 2.8 % (0.0-4.0); HEMATOCRIT 27.5 % (36-54); HEMOGLOBIN 9.3 g/dL (14.0-18.0); LYMPHOCYTES # (AUTO) 1.7 K/uL (1.0-5.5); LYMPHOCYTES % (AUTO) 19.1 % (20.5-51.5); MEAN CORPUSCULAR HEMOGLOBIN 30 pg (27-31); MEAN CORPUSCULAR HGB CONC 34 % (32-36); MEAN CORPUSCULAR VOLUME 90 fL (79.0-98.0); MONOCYTES # (AUTO) 0.9 K/uL (0.0-1.0); MONOCYTES % (AUTO) 9.4 % (1.7-9.3); NEUTROPHILS # (AUTO) 6.2 K/uL (1.8-7.7); NEUTROPHILS % (AUTO) 68.4 % (40.0-70.0); PLATELET COUNT (AUTO) 504 K/uL (130-430); RED BLOOD CELL COUNT(AUTO) 3.06 MIL/uL (4.2-6.2); RED CELL DISTRIBUTION WIDTH 16.2 % (9.0-15.0); WHITE BLOOD COUNT (AUTO) 9.1 K/uL (4.8-10.8)
[2019-09-15 06:56] LABS: CALCIUM 7.8 mg/dL (8.4-11.0); CREATININE 0.34 mg/dL (0.55-1.30); POTASSIUM 3.8 mmol/L (3.5-5.1)
--- NOTE | 2019-09-15 07:11 | NUR ---
RECEIVED NURSING REPORT FROM CHANGE ATTENDANT BELEN Cornejo
[2019-09-15] MEDS: CEFEPIME 1 GM in D5W 50 ML IV SCH (08:30)
[2019-09-15] MEDS: NAPH,MB-DB/K PH,MBDB 250 MG TAB NG SCH ×4 (08:30→20:07)
[2019-09-15] MEDS: metroNIDAZOLE 500 mg/NS 100 ML IV SCH (08:30)
[2019-09-15] MEDS: FAMOTIDINE PF 20 MG/2 ML VIAL IVP SCH (08:32)
[2019-09-15] MEDS: NYSTATIN 15 GM TOPICAL POWDER TP SCH ×2 (08:34→20:07)
[2019-09-15] MEDS: CHOLESTYRAMINE/SUCROSE 4 GM/PACKET PO SCH ×2 (09:00→20:07)
--- NOTE | 2019-09-15 09:00 | NUR ---
SEE PATIENT, ORDERED FOLLOW UP STAT KUB AND COLLECTION STOOL CULTURE
[2019-09-15] MEDS: MORPHINE 2 MG/ML INJ. SYRINGE IVP PRN ×2 (09:22→13:55)
--- NOTE | 2019-09-15 09:23 | NUR ---
AT 0840 A.M, RECEIVED CHEST X-RAY RESULT : THE NG-TUBE NOTED PROBABLY COURSING THROUGH A LARGE HIATAL HERNIA AND VISIBLE BELOW THE DIAPHRAGM, WAS HOLD FEEDING AND REPORTED TO Dr. THURSTON AWARE
--- NOTE | 2019-09-15 10:32 | NUR ---
Dr. THURSTON ORDERED DOWN GRADE TO TELE STATUS, IF KUB RESULT IS NORMAL, BACK TO OG-TUBE FEEDING
--- NOTE | 2019-09-15 12:45 | NUR ---
PAGED Dr. DIAZ REGARDING OF ABNORMAL KUB RESULT
--- NOTE | 2019-09-15 13:46 | NUR ---
WOUND RE-EVALUATION: Patient received in a [place] Bed with an Isoflex GABBY mattress with low air loss therapy, awake, obtunded. Patient is unable to turn in bed independently. Malik Score is a 12. Intrinsic factors that delay wound healing: Hypoalbuminemia. Extrinsic factors that delay wound healing: Immobility. Wound Assessment: 1. Left lateral heel: sDTI. Bulla closed with dark discoloration. No odor, no drainage. Ana Laura-bulla intact. Bulla measures 5.4 cm x 4.5 cm. 2. Left lateral foot, posterior to malleolus: Bulla. Bulla closed with serous fluid. No odor, no drainage. Ana Laura-bulla intact. Bulla measures 0.7 cm x 0.7 cm. 3. Right posterior heel: Bulla. Bulla closed with serous fluid. No odor, no drainage. Ana Laura-bulla intact. Bulla measures 2.6 cm x 2.0 cm. Recommend continue: Offload involved areas at all times by placing feet in heel lift boots. During hourly rounds check boots to ensure that involved areas are not touching boots. 4. Scrotal area: Erythema from IAD. 5. Perianal/Perineal area: Erythema from IAD. Recommend continue: Cleanse involved areas with mild soap and water. Pat dry. Apply antifungal powder to involved areas. Perform site care twice a day, and as needed for soiling. Also recommend continue: Reposition patient [id number] only every 2 hours with pillow support (keep one pillow underneath lower extremity on bed and one pillow in between knees and ankles at all times), and off-load pressure areas with pillows for pressure re-distribution. Offload, elevate and float bilateral feet/heels with HeeLift boots. During hourly rounds check boots to ensure that involved areas are not touching boots. Perform skin care and monitor skin integrity Q shift. Use moisture barrier cream on buttocks and other moisture susceptible areas QID and as needed for soiling. Maintain patient on a low air-loss mattress.
--- NOTE | 2019-09-15 14:00 | NUR ---
CALLED , ORDERED O.K TO CONTINUE FEEDING FOR PATIENT
--- NOTE | 2019-09-15 15:31 | NUR ---
ORDERED O.K DOWN GRADE TO TELE STATUS, TRANSFER TO [facility] [address]
--- NOTE | 2019-09-15 16:00 | NUR ---
GIVE COMPLETE NURSING REPORT TO [facility] BRANDON Cornejo
--- NOTE | 2019-09-15 16:13 | NUR ---
SPOKE TO PATIENT,S MOM BAYRON , SHE IS AWARE PATIENT TRANSFER TO ROOM [address]
--- NOTE | 2019-09-15 16:20 | NUR ---
Notes- Received pt from ICU, asleep at this time. was given morphine earlier per report. on O2 2l. tolerating well. has OJ feeding, no residual noted. pt is contracted on both upper and lower extremities. has daugherty catheter draining yellow urine and flexi seal draining liquid stool. Bed alarm on. no fever, will monitor.
--- NOTE | 2019-09-15 18:11 | NUR ---
notes- resting, open his eyes when name called. No acute distress noted. Seen by Dr. Harden. Will endorse
--- NOTE | 2019-09-15 23:09 | NUR ---
Patient's parents agreed for patient to get a feeding tube. Call placed to surgeon. Made aware of the parents decision. stated he will give the parents a call in the a.m.
[2019-09-16] MEDS: CEFEPIME 1 GM in D5W 50 ML IV SCH ×3 (00:05→21:21)
[2019-09-16] MEDS: metroNIDAZOLE 500 mg/NS 100 ML IV SCH ×3 (00:08→22:20)
[2019-09-16] MEDS: IPRATROPIUM/ALBUTEROL SULFATE 3 ML AMPUL.NEB (DUONEB) INH SCH ×4 (01:24→19:42)
[2019-09-16 02:44] VITALS: BP_SYST 117
[2019-09-16] MEDS: LEVOTHYROXINE SODIUM 0.1 MG VIAL IVP SCH ×2 (05:16→05:17)
--- NOTE | 2019-09-16 06:33 | NUR ---
Patient in bed. Turned repositioned q2. No acute distress noted. Oral care performed. Will continue to monitor.
[2019-09-16 06:37] LABS: BASOPHILS # (AUTO) 0.2 K/uL (0.0-0.2); BASOPHILS % (AUTO) 1.3 % (0.0-2.0); EOSINOPHILS # (AUTO) 0.4 K/uL (0.0-0.4); EOSINOPHILS % (AUTO) 2.9 % (0.0-4.0); HEMATOCRIT 27.1 % (36-54); HEMOGLOBIN 9.2 g/dL (14.0-18.0); LYMPHOCYTES % (AUTO) 14.3 % (20.5-51.5); MEAN CORPUSCULAR HEMOGLOBIN 31 pg (27-31); MEAN CORPUSCULAR HGB CONC 34 % (32-36); MEAN CORPUSCULAR VOLUME 91 fL (79.0-98.0); MONOCYTES # (AUTO) 1.3 K/uL (0.0-1.0); MONOCYTES % (AUTO) 9.6 % (1.7-9.3); NEUTROPHILS # (AUTO) 9.8 K/uL (1.8-7.7); NEUTROPHILS % (AUTO) 71.9 % (40.0-70.0); PLATELET COUNT (AUTO) 436 K/uL (130-430); RED BLOOD CELL COUNT(AUTO) 2.98 MIL/uL (4.2-6.2); RED CELL DISTRIBUTION WIDTH 16.4 % (9.0-15.0); WHITE BLOOD COUNT (AUTO) 13.7 K/uL (4.8-10.8)
--- NOTE | 2019-09-16 07:30 | NUR ---
Opening note patient resting in bed at this time, A/ox1, nonverbal. no SOB. no complaints of pain. PICC line patent, intact, and infusing fluids as ordered. Oral tube in place, patent, and infusing Feeding as ordered. tolerating well. No residual noted. No nausea, no vomiting. Cross catheter in place, draining yellow urine. Flexi seal in place, draining loose stool. on safety and aspiration precautions, HOB kept elevated, 3 side rails up, call light within reach. patient in stable condition. Will continue to monitor.
[2019-09-16 08:00] VITALS: BP_SYST 119
[2019-09-16 08:02] LABS: ALBUMIN 1.8 g/dL (3.4-4.8); CALCIUM 8.2 mg/dL (8.4-11.0); CREATININE 0.26 mg/dL (0.55-1.30); POTASSIUM 4.2 mmol/L (3.5-5.1); TOTAL BILIRUBIN 0.2 mg/dL (0.0-1.0)
[2019-09-16] MEDS: NAPH,MB-DB/K PH,MBDB 250 MG TAB NG SCH ×4 (09:00→21:00)
[2019-09-16] MEDS: FAMOTIDINE PF 20 MG/2 ML VIAL IVP SCH (09:00)
[2019-09-16] MEDS: CHOLESTYRAMINE/SUCROSE 4 GM/PACKET PO SCH ×2 (09:01→21:00)
[2019-09-16] MEDS: NYSTATIN 15 GM TOPICAL POWDER TP SCH ×2 (09:02→22:21)
--- NOTE | 2019-09-16 09:20 | NUR ---
medications all morning medications given as ordered, no adverse side effects. no nausea, no vomiting.
--- NOTE | 2019-09-16 11:30 | NUR ---
rounds oral tube flushed as ordered. tolerated well. No nausea, no vomiting noted.
--- NOTE | 2019-09-16 13:10 | NUR ---
wound care Wound care done as ordered. No adverse side effects.
[2019-09-16 13:37] VITALS: BP_SYST 145
[2019-09-16] MEDS: 0.45% NACL 1,000 ML IV SCH (15:25)
--- NOTE | 2019-09-16 15:30 | NUR ---
Rounds Patient resting in bed at this time, no signs on pain. Skin care provided. No other needs at this time.
--- NOTE | 2019-09-16 16:30 | NUR ---
DC PLANNING RECEIVED CALL FROM [facility] PHONE NUMBER [phone] REQUESTING UPDATE ON FAMILY DECISION. ADVISED AWAITING DECISION AND MD RECOMMENDATIONS FOR DC PLAN.
--- NOTE | 2019-09-16 16:52 | NUR ---
Nutrition F/U RD reviewed pt's current EMR including diet Hx, physician notes, nursing notes, pertinent labs/meds/procedures, care trends, and care activity. Current Diet Order: Vital AF 1.2 at 50 ml/hr (goal rate), Free Water Flush: 100 CC [id number] via NGT x4 days Subjective information: Pt was seen resting in bed w/ OGT infusing Vital AF 1.2 at 50 ml/hr. Per EMR records, pt has been tolerating TF well, no s/s of intolerance noted. No NGT noted. Current TF regimen is adequate/appropriate at this time. NEW Estimated Energy Expenditure (kcals/day) 3898-1099 kcal/day (30-35 kcal/kg Adj IBW for sepsis) Estimated Protein Required (g/day) 78-104 gm/day (1.5-2 gm/kg Adj IBW for sepsis) Estimated Fluid Required (l/day) 1.6-1.8 L/day (1 ml/kcal/day for maintenance) Problem/Etiology/Signs/Symptoms (modified) Inadequate nutritional intakes related to metabolic demands as evidenced by NPO status and estimated nutritional requirements for sepsis. *partially met w/ EN support Inadequate EN intake r/t current EN regimen AEB EN regimen meets <70% of est needs and need for PEG to meet est needs. *ongoing -- no route for nutrition support available Expected Outcomes/Goals (modified) - Monitor EN tolerance and intake w/ goal of pt meeting at least 80% of estimated nutritional needs, labs trending WNL, normal GI function, and skin integrity/wt maintenance Dietitian Recommendations * Recommend Vital AF 1.2 at 50 ml/hr, Free Water Flush: 100 ml Q6h via OGT Provides: 1440 kcal/day, 90 gm protein/day, and 1373 ml free water/day Meets: 92% of lower end of estimated caloric needs and 87% of upper end of estimated caloric needs Follow Up High Risk: F/U in 2-3 days
--- NOTE | 2019-09-16 16:58 | NUR ---
Dietitian Recommendations * Recommend Vital AF 1.2 at 50 ml/hr, Free Water Flush: 100 ml Q6h via OGT Provides: 1440 kcal/day, 90 gm protein/day, and 1373 ml free water/day Meets: 92% of lower end of estimated caloric needs and 87% of upper end of estimated caloric needs LP, RD Please refer to Nutrition F/U for details.
[2019-09-16 17:19] VITALS: BP_SYST 104
--- NOTE | 2019-09-16 17:30 | NUR ---
rounds patient resting in bed at this time, no complaints of pain. PICC line patent, intact, and infusing fluids as ordered. no other needs at this time.
[2019-09-16] MEDS: LOPERAMIDE HCL 2 MG CAPSULE NG PRN (17:40)
--- NOTE | 2019-09-16 18:40 | NUR ---
closing note patient resting in bed at this time, A/ox1, nonverbal. no SOB. no complaints of pain. PICC line patent, intact, and infusing fluids as ordered. Oral tube in place, patent, and infusing Feeding as ordered. tolerating well. No residual noted. No nausea, no vomiting. Cross catheter in place, draining yellow urine. on safety and aspiration precautions, HOB kept elevated, 3 side rails up, call light within reach. patient in stable condition. All needs met.
--- NOTE | 2019-09-16 18:45 | NUR ---
Dr. ahssan, Dr. Johnie muir Spoke with Dr. Hassan and Dr. Muir. made aware of patients family wanting to speak to them. MD aware. Phone number provided.
[2019-09-16 20:00] VITALS: BP_SYST 117
--- NOTE | 2019-09-16 21:03 | NUR ---
vomited a large amount of vomitus and cleaned and kept dry noted patient is congested, feeding temporarity off.
--- NOTE | 2019-09-16 23:04 | NUR ---
DR CONTI PAGED THE ORAL FEEDING IS UNABLE TO AUSCULTATE THE PLACEMENT. FEEDING CURRENTLY IOFF AND WILL NEED AN XRAY TO CONFIRM THE PLACEMENT. AWAITING RESPONSE
--- NOTE | 2019-09-16 23:21 | NUR ---
AWAITING RESPONSE FRO DR CONTI. ABBEY MOON TO INFORM THAT THE PATIENT VOMITED A LOT AND IF HE WANTS THE PATIENT TO BE NPO P MIDNIGHT FOR A PROCEDURE,CALLED BACK AND WITH ORDRS TO DO A CHEST XRAY AND A KUB NOW.
--- NOTE | 2019-09-16 23:29 | NUR ---
KUB AND CHEST XRAY ORDERED NOW ORDERED, FEEDING CURRENTLY OFF
[2019-09-17] MEDS: IPRATROPIUM/ALBUTEROL SULFATE 3 ML AMPUL.NEB (DUONEB) INH SCH ×3 (00:33→21:02)
--- NOTE | 2019-09-17 01:30 | NUR ---
DR CONTI INFORMED THAT THE CHEST XRAY RESULT IS DONE BUT NO RESULT YET AND THE FEEDING IS OFF TILL THE CHEST XRAY RESULT IS IN. ,ORDERED TO WAIT FOR THE CHEST XRAY RESULT AND OKAY FOR THE FEEDING TO BE OFF TILL THE CHEST XRAY RESULT IS IN.
--- NOTE | 2019-09-17 01:55 | NUR ---
xray result in and feeding restarted at 30ml/hour. will continue to monitor for tolerance to feeding .head of bed elevated,
[2019-09-17 02:13] VITALS: BP_SYST 144
[2019-09-17 04:00] VITALS: BP_SYST 150
[2019-09-17] MEDS: LEVOTHYROXINE SODIUM 0.1 MG VIAL IVP SCH (05:56)
--- NOTE | 2019-09-17 07:14 | NUR ---
tolerated the oral tube feeding , left arm noted to be swollen and ivf stopped till the site is reconfimed,
--- NOTE | 2019-09-17 07:36 | NUR ---
REPORT GIVEN TO THER DAY SHIFT RN THAT THE IVF WAS DISCONTINUED THE LEFT UPPER ARM IS NOTED SWOLLEN. WILL NEED TO BE SEEN BY THE PICC LINE NURSE, GTUBE FEEDING AT 40 ML /HOUR AND WILL BE INCREASED TO GOAL OF 50 IF PATIENT TOLERATES WITH OUT RESIDUALS AND VOMITING. NO VOMITING NOTED,
[2019-09-17 08:00] VITALS: BP_SYST 140
--- NOTE | 2019-09-17 08:31 | NUR ---
Paged and informed him tube feeding running and has not been npo'd for surgery. Dr Hassan stated he will call back when he is ready to do that.
[2019-09-17] MEDS: metroNIDAZOLE 500 mg/NS 100 ML IV SCH (09:00)
[2019-09-17] MEDS: CEFEPIME 1 GM in D5W 50 ML IV SCH (09:00)
[2019-09-17] MEDS: FAMOTIDINE PF 20 MG/2 ML VIAL IVP SCH (09:00)
[2019-09-17] MEDS: ENOXAPARIN SODIUM 40 MG/0.4 ML SYRINGE SUBCUT SCH (11:53)
[2019-09-17] MEDS: NAPH,MB-DB/K PH,MBDB 250 MG TAB NG SCH ×4 (11:56→22:12)
[2019-09-17] MEDS: CHOLESTYRAMINE/SUCROSE 4 GM/PACKET PO SCH ×2 (11:56→22:12)
[2019-09-17] MEDS: NYSTATIN 15 GM TOPICAL POWDER TP SCH ×2 (11:57→22:13)
[2019-09-17 12:13] VITALS: BP_SYST 102
[2019-09-17] MEDS: 0.45% NACL 1,000 ML IV SCH (15:15)
[2019-09-17 16:11] VITALS: BP_SYST 125
--- NOTE | 2019-09-17 19:42 | NUR ---
RECIEVED OFF THE THE ORAL TUBE FEEDING. IVF OFF THE PICC LINE NURSE NEEDS TO SEE THE PICC LINE AND REINSERT A NEW ONE. WILL FOLLOW UP. Addendum: 09/17/19 at 2010 by [employer] front of house manager PICC LINE NURSE IS COMING TO SEE THE PICC LINE AND REINSERT A NEW ONE. IVF OFF.
[2019-09-17 20:00] VITALS: BP_SYST 148
--- NOTE | 2019-09-17 22:24 | NUR ---
STILL WAITING FOR THE PICC LINE NURSE TO COME, MEDICATIONS GIVEN VIA THE ORAL TUBE. BUT NPO EXEPT MEDICATIONS ENDORSED
--- NOTE | 2019-09-17 22:28 | NUR ---
iv antibiotics discontinued as ordered
--- NOTE | 2019-09-18 01:38 | NUR ---
NPO FOR THE ORDERED PROCEDURE IN AM. PICC LINE NURSE CALLED THAT WILL COME BUT STILL NOT COMING.WILL INFORM THE NURSING CAREER DEVELOPMENT COUNSELOR ABOUT IT. RAL TUBE IN CLAMPED.
[2019-09-18] MEDS: IPRATROPIUM/ALBUTEROL SULFATE 3 ML AMPUL.NEB (DUONEB) INH SCH ×4 (01:41→19:55)
[2019-09-18 02:04] VITALS: BP_SYST 136
--- NOTE | 2019-09-18 06:00 | NUR ---
free water not given for 0600 hours as the patient iss npo fir he scheduled procedue today
[2019-09-18 06:09] LABS: CALCIUM 8.2 mg/dL (8.4-11.0); CREATININE 0.25 mg/dL (0.55-1.30); POTASSIUM 3.9 mmol/L (3.5-5.1)
[2019-09-18 06:29] LABS: BASOPHILS # (AUTO) 0.1 K/uL (0.0-0.2); BASOPHILS % (AUTO) 0.7 % (0.0-2.0); EOSINOPHILS # (AUTO) 0.3 K/uL (0.0-0.4); EOSINOPHILS % (AUTO) 2.5 % (0.0-4.0); HEMATOCRIT 28.7 % (36-54); HEMOGLOBIN 9.4 g/dL (14.0-18.0); LYMPHOCYTES # (AUTO) 1.3 K/uL (1.0-5.5); LYMPHOCYTES % (AUTO) 11.1 % (20.5-51.5); MEAN CORPUSCULAR HEMOGLOBIN 30 pg (27-31); MEAN CORPUSCULAR HGB CONC 33 % (32-36); MEAN CORPUSCULAR VOLUME 91 fL (79.0-98.0); MONOCYTES # (AUTO) 0.4 K/uL (0.0-1.0); MONOCYTES % (AUTO) 3.6 % (1.7-9.3); NEUTROPHILS # (AUTO) 9.9 K/uL (1.8-7.7); NEUTROPHILS % (AUTO) 82.1 % (40.0-70.0); PLATELET COUNT (AUTO) 370 K/uL (130-430); RED BLOOD CELL COUNT(AUTO) 3.15 MIL/uL (4.2-6.2); RED CELL DISTRIBUTION WIDTH 16.5 % (9.0-15.0)
--- NOTE | 2019-09-18 07:30 | NUR ---
Left upper arm PICC line red line with good blood flow no resistance , notice swollen left arm kept elevated to pillow resume IV fluid , Dr. Suresh informed., patient more awake /alert non verbal,aspiration precaution head of bed kept semi fowlers, oarl NGT kept secured, feeding on hold for procedure.
[2019-09-18] MEDS: NAPH,MB-DB/K PH,MBDB 250 MG TAB NG SCH ×4 (08:30→20:48)
[2019-09-18] MEDS: FAMOTIDINE PF 20 MG/2 ML VIAL IVP SCH (08:34)
[2019-09-18] MEDS: CHOLESTYRAMINE/SUCROSE 4 GM/PACKET PO SCH ×2 (08:34→20:48)
[2019-09-18] MEDS: LEVOTHYROXINE SODIUM 0.1 MG VIAL IVP SCH (08:35)
[2019-09-18] MEDS: NYSTATIN 15 GM TOPICAL POWDER TP SCH ×2 (09:00→20:49)
[2019-09-18] MEDS: ENOXAPARIN SODIUM 40 MG/0.4 ML SYRINGE SUBCUT SCH (09:00)
--- NOTE | 2019-09-18 09:00 | NUR ---
Skin care/comfort Complete TSB done perineal area cleaned minimal leaking in the flexiseal flush with saline , skin cream barrier applied in the perineal area , bilateral heels with pressure sore , left heel with black hematoma like blister skin intact wash with saline pat/dry , skin cream barrier applied the hematoma kept clean /dry covered with optifoam, right heel with blister skin is intact wash with saline, pat/dry skin cream barrier applied to surrounding area , covered with optifoam dressing , both heel kept with heel lift chairez to avoid pressure , repositioned.
--- NOTE | 2019-09-18 09:22 | NUR ---
Rounds Patient removed his Oral NGT totally out ,oral care given , no aspiration ,for jejunostomy placement today .
[2019-09-18] MEDS: 0.45% NACL 1,000 ML IV SCH (12:22)
--- NOTE | 2019-09-18 12:26 | NUR ---
Perineal care given, Patient repositioned by staff every 2 hours with pillow support.
--- NOTE | 2019-09-18 12:30 | NUR ---
Anne Marie Gilman anesthesiologist spoke to Rafaela Espino and give the anesthesia consent.
[2019-09-18 12:37] VITALS: BP_SYST 142
--- NOTE | 2019-09-18 12:50 | NUR ---
Endorsed patient to OR staff Jeanney with all the informationm, patient awake vitals sign stable.
[2019-09-18] MEDS ORDERED: ONDANSETRON HCL 4 MG/2 ML VIAL IVP PRN (13:00)
[2019-09-18] MEDS ORDERED: fentaNYL CITRATE/PF 100 MCG/2 ML AMP IVP PRN ×2 (13:00)
[2019-09-18] MEDS ORDERED: NEOSTIGMINE METHYLSULFATE 1 MG/ML, 10 ML VIAL IVP ONE (13:42)
[2019-09-18] MEDS ORDERED: BUPIVACAINE /EPINEPHRINE/PF 0.25% 30 ML VIAL INJ ONE (13:42)
[2019-09-18] MEDS ORDERED: fentaNYL CITRATE 250 MCG/5 ML AMP IV ONE (13:42)
[2019-09-18] MEDS ORDERED: LR 1,000 ML IV.SOLN IV ONE (13:42)
[2019-09-18] MEDS ORDERED: MIDAZOLAM HCL 5 MG/5 ML VIAL IVP ONE (13:42)
[2019-09-18] MEDS ORDERED: PROPOFOL 200MG/ 20ML VIAL (DIPRIVAN) IV ONE (13:42)
[2019-09-18] MEDS ORDERED: ROCURONIUM BROMIDE 10 MG/ML (ZEMURON) IV ONE (13:42)
[2019-09-18] MEDS ORDERED: GLYCOPYRROLATE 0.2 MG/ML VIAL IJ ONE (13:42)
[2019-09-18] MEDS ORDERED: CEFAZOLIN 2 GM IVPB PREMIX 50 ML IV ONE (13:42)
[2019-09-18] MEDS ORDERED: HYDROmorphone 2 MG/ML VIAL IVP ONE (13:42)
[2019-09-18] MEDS ORDERED: NS IRRIG SOLN 1000 ML IR ONE (13:42)
[2019-09-18] MEDS ORDERED: SEVOFLURANE 15 MIN GAS INH ONE (13:42)
[2019-09-18] MEDS ORDERED: BUPIVACAINE LIPOSOME/PF 266 MG/20 ML VIAL INFIL ONE (14:31)
[2019-09-18 17:30] VITALS: BP_SYST 99
--- NOTE | 2019-09-18 17:30 | NUR ---
Transfer from PACU to ICU to telemetry Post exploratory laparotomy lysis of adhesion open jejunostomy placement under general anesthesia, vitals sign monitored, open eyes to verbal stimuli but still sleepy, left upper arm dressing PICC line done under aseptic technique , no resistance IV Fluid infusing well still NPO , abdominal dressing intact dry/clean no bleeding , will monitor.
[2019-09-18] MEDS: NACL 0.9% 1,000 ML IV SCH (18:46)
--- NOTE | 2019-09-18 18:51 | NUR ---
Patient open eyes to verbal stimuli , vitals sign monitored , family at the bedside.
[2019-09-18 20:00] VITALS: BP_SYST 116
--- NOTE | 2019-09-18 20:00 | NUR ---
ASSUMED CARE. RECEIVED RESTING IN BED. NOTED TO BE A LITTLE RESTLESS AND WITH FACIAL GRIMACE. PARENTS AT BEDSIDE AND REQUESTED THAT HE BE GIVEN PAIN MEDICATION. IV FLUID NS INFUSING AT 0 ML/HR VIA LEFT UPPER ARM DOUBLE LUMEN PICC LINE.MURPHY CATHETER DRAINING CLEAR YELLOW URINE. FLEXISEAL DRAINING BROWN COLORED LIQUID STOOLS. XWZ3=709 % ON 2 LPM O2 VIA NC. SINUS RHYTHM AT 70'S/MINUTE ON THE MONITOR. BILATERAL SCD'S IN PLACE. VS STABLE, WILL CONTINUE TO MONITOR. NEEDS ATTENDED.
[2019-09-18] MEDS: MORPHINE 2 MG/ML INJ. SYRINGE IVP PRN (20:47)
--- NOTE | 2019-09-18 20:47 | NUR ---
ALL DUE MEDS NOT GIVEN DUE TO J-TUBE NOT CLEARED FOR USE YET AT THIS TIME. MORPHINE 2 MG IVP GIVEN PER FAMILY'S REQUEST.
--- NOTE | 2019-09-18 21:30 | NUR ---
PT.SLEEPING, LOOKS MORE RELAXED. PAIN IMPROVED. WILL CONTINUE TO MONITOR.
--- NOTE | 2019-09-18 22:14 | NUR ---
CALLED AND MADE AWARE OF PT. STILL HAVING LIQUID STOOLS. SHE SAID FLEXISEAL MAY BE KEPT FOR NOW BUT DISCONTINUE IN THE MORNING.
--- NOTE | 2019-09-19 | NUR ---
ASLEEP, NOT IN ANY KIND OF DISTRESS. NO PAIN OR DISCOMFORT NOTED. SIDE RAUILS UP, CALL LIGHT WITHIN REACH. KEPT WARM AND COMFORTABLE. VS REMAIN STABLE.
[2019-09-19 00:13] VITALS: BP_SYST 117
[2019-09-19] MEDS: IPRATROPIUM/ALBUTEROL SULFATE 3 ML AMPUL.NEB (DUONEB) INH SCH ×3 (01:56→13:31)
--- NOTE | 2019-09-19 04:00 | NUR ---
ASLEEP, NOT IN ACUTE DISTRESS. PT. REMAINS STABLE AND PAIN FREE.
[2019-09-19] MEDS: NACL 0.9% 1,000 ML IV SCH (05:36)
[2019-09-19] MEDS: LEVOTHYROXINE SODIUM 0.1 MG VIAL IVP SCH (05:36)
--- NOTE | 2019-09-19 06:00 | NUR ---
ASLEEP, DUE MEDICATION GIVEN. FLEXISEAL DISCONTINUED PER 'S ORDER. TOTAL OUTPUT IN QYU=874. TOTAL OUTPUT FOR ZMRIX=957 ML.
--- NOTE | 2019-09-19 07:20 | NUR ---
ENDORSED CARE TO MALVIN BERNABE.
--- NOTE | 2019-09-19 08:00 | NUR ---
SLEEPING IN BED QUIET
[2019-09-19 09:19] LABS: BASOPHILS # (AUTO) 0.1 K/uL (0.0-0.2); BASOPHILS % (AUTO) 0.7 % (0.0-2.0); EOSINOPHILS # (AUTO) 0.2 K/uL (0.0-0.4); EOSINOPHILS % (AUTO) 2.5 % (0.0-4.0); HEMATOCRIT 32.1 % (36-54); HEMOGLOBIN 10.6 g/dL (14.0-18.0); LYMPHOCYTES # (AUTO) 0.8 K/uL (1.0-5.5); MEAN CORPUSCULAR HEMOGLOBIN 30 pg (27-31); MEAN CORPUSCULAR HGB CONC 33 % (32-36); MEAN CORPUSCULAR VOLUME 91 fL (79.0-98.0); MONOCYTES # (AUTO) 0.3 K/uL (0.0-1.0); MONOCYTES % (AUTO) 3.8 % (1.7-9.3); NEUTROPHILS # (AUTO) 7.2 K/uL (1.8-7.7); PLATELET COUNT (AUTO) 335 K/uL (130-430); RED BLOOD CELL COUNT(AUTO) 3.53 MIL/uL (4.2-6.2); RED CELL DISTRIBUTION WIDTH 16.6 % (9.0-15.0); WHITE BLOOD COUNT (AUTO) 8.5 K/uL (4.8-10.8)
[2019-09-19 09:36] LABS: ALBUMIN 1.7 g/dL (3.4-4.8); CALCIUM 7.9 mg/dL (8.4-11.0); CREATININE 0.23 mg/dL (0.55-1.30); POTASSIUM 4.3 mmol/L (3.5-5.1); TOTAL BILIRUBIN 0.3 mg/dL (0.0-1.0)
[2019-09-19] MEDS: NAPH,MB-DB/K PH,MBDB 250 MG TAB NG SCH ×4 (09:57→21:08)
[2019-09-19] MEDS: FAMOTIDINE PF 20 MG/2 ML VIAL IVP SCH (09:57)
[2019-09-19] MEDS: CHOLESTYRAMINE/SUCROSE 4 GM/PACKET PO SCH ×2 (09:57→21:08)
[2019-09-19] MEDS: NYSTATIN 15 GM TOPICAL POWDER TP SCH ×2 (09:58→21:09)
--- NOTE | 2019-09-19 10:00 | NUR ---
REMAINS WITH J TUBE CLAMPED SEEN BY DR. VERDUGO
--- NOTE | 2019-09-19 12:00 | NUR ---
CALLED DR. POTTER TO START ON J TUBE FEEDING STARTED WITH WATER FLUSHES FIRST
[2019-09-19 12:11] VITALS: BP_SYST 127
[2019-09-19] MEDS: ENOXAPARIN SODIUM 40 MG/0.4 ML SYRINGE SUBCUT SCH (13:26)
--- NOTE | 2019-09-19 13:53 | NUR ---
DC PLANNING RECEIVED CALL FROM DR CONTI TELEPHONE ORDER [facility] EVAL. ORDER INPUT
[2019-09-19 13:55] VITALS: BP_SYST 143
--- NOTE | 2019-09-19 15:29 | NUR ---
Discharge Planning: DCP faxed pt referral to [facility] (f [phone] p [phone]) DCP to follow up
[2019-09-19 16:35] VITALS: BP_SYST 142
--- NOTE | 2019-09-19 16:47 | NUR ---
Nutrition F/U RD reviewed pt's current EMR including diet Hx, physician notes, nursing notes, pertinent labs/meds/procedures, care trends, and care activity. Admitting Dx: Urosepsis, UTI, dehydration PMH: HTN, hypothyroidism, developmental delay per physician notes Current Diet Order: Vital AF 1.2 at 50 ml/hr (goal rate), Free Water Flush: 100 CC [id number] via NGT x2 days -- not infusing at time of RD visit -- LANETTE notes indicated that pt has been NPO Subjective information: Nutrition Consult received for JT feeding recommendation. Pt was seen resting in bed at time of RD visit. Pt is POD 1 s/p exploratory laparoscopy, lysis of adhesions, and open Jejunostomy tube placement 09/18/19. Per RN, surgeon approved for pt to start on TF this evening at 2100. Pt had previously been on Vital AF 1.2 TF formula and had been tolerating it well. Estimated Energy Expenditure (kcals/day) 5942-5232 kcal/day (30-35 kcal/kg Adj IBW for sepsis) Estimated Protein Required (g/day) 78-104 gm/day (1.5-2 gm/kg Adj IBW for sepsis) Estimated Fluid Required (l/day) 1.6-1.8 L/day (1 ml/kcal/day for maintenance) Problem/Etiology/Signs/Symptoms (modified) Inadequate nutritional intakes related to metabolic demands as evidenced by NPO status and estimated nutritional requirements for sepsis. *ongoing Inadequate EN intake r/t current EN regimen AEB EN regimen meets <70% of est needs and need for PEG to meet est needs. *ongoing Expected Outcomes/Goals (modified) - Monitor EN tolerance and intake w/ goal of pt meeting at least 80% of estimated nutritional needs, labs trending WNL, normal GI function, and skin integrity/wt maintenance Dietitian Recommendations * Recommend Vital AF 1.2 at 50 ml/hr, Free Water Flush: 100 ml Q6h via OGT Provides: 1440 kcal/day, 90 gm protein/day, and 1373 ml free water/day Meets: 92% of lower end of estimated caloric needs and 87% of upper end of estimated caloric needs Follow Up High Risk: F/U in 2-3 days Addendum: 09/19/19 at [address] CORRECTION: Dietitian Recommendations * Recommend Vital AF 1.2 at 50 ml/hr, Free Water Flush: 100 ml Q6h via JT Provides: 1440 kcal/day, 90 gm protein/day, and 1373 ml free water/day Meets: 92% of lower end of estimated caloric needs and 87% of upper end of estimated caloric needs
--- NOTE | 2019-09-19 16:50 | NUR ---
WOUND RE-EVALUATION: Patient received in a [place] Bed with an Isoflex GABBY mattress with low air loss therapy, awake, obtunded. Patient is unable to turn in bed independently. Malik Score is a 12. Intrinsic factors that delay wound healing: Hypoalbuminemia. Extrinsic factors that delay wound healing: Immobility. Wound Assessment: 1. Left lateral heel: sDTI. Bulla closed with 75% dark discoloration, 25% white discoloration, flatter around the edges. No odor, no drainage. Ana Laura-bulla intact. Bulla measures 5.7 cm x 5.1 cm. 2. Left lateral foot, posterior to malleolus: Bulla. Bulla closed but flat and hard. No odor, no drainage. Ana Laura-bulla intact. Bulla measures 0.5 cm x 0.9 cm. 3. Right posterior heel: Bulla. Bulla closed but flat and hard with 5% pink and 95% light madhu discoloration. No odor, no drainage. Ana Laura-bulla intact. Bulla measures 2.2 cm x 1.5 cm, smaller in size. Recommend continue: Offload involved areas at all times by placing feet in heel lift boots. During hourly rounds check boots to ensure that involved areas are not touching boots. 4. Scrotal area: Erythema from IAD. 5. Perianal/Perineal area: Erythema from IAD. Recommend continue: Cleanse involved areas with mild soap and water. Pat dry. Apply antifungal powder to involved areas. Perform site care twice a day, and as needed for soiling. Also recommend continue: Reposition patient [id number] only every 2 hours with pillow support (keep one pillow underneath lower extremity on bed and one pillow in between knees and ankles at all times), and off-load pressure areas with pillows for pressure re-distribution. Offload, elevate and float bilateral feet/heels with HeeLift boots. During hourly rounds check boots to ensure that involved areas are not touching boots. Perform skin care and monitor skin integrity Q shift. Use moisture barrier cream on buttocks and other moisture susceptible areas QID and as needed for soiling. Maintain patient on a low air-loss mattress.
--- NOTE | 2019-09-19 16:52 | NUR ---
Dietitian Recommendations * Recommend Vital AF 1.2 at 50 ml/hr, Free Water Flush: 100 ml Q6h via JT Provides: 1440 kcal/day, 90 gm protein/day, and 1373 ml free water/day Meets: 92% of lower end of estimated caloric needs and 87% of upper end of estimated caloric needs LP, RD Please refer to Nutrition F/U for details.
[2019-09-19 19:00] VITALS: BP_SYST 135
--- NOTE | 2019-09-19 19:15 | NUR ---
change of shift.pt.to be transferred to room;134-bed.pt presently located:[id number].parents present w/in the room. pt.presents hx;mentally challenged.pt.presents g/j-tube clamped.i am to initiate the g/j-tube feed.pt.presents restraint ;mitten;x1; lt.hand.in place.skin/circulation intact;w/in normal limits.call light/telephone w/in the reach of the pt.
--- NOTE | 2019-09-19 19:55 | NUR ---
REPORT GIVEN TO MELVIN MUSA
[2019-09-19 20:00] VITALS: BP_SYST 135
--- NOTE | 2019-09-19 20:00 | NUR ---
pt.transferred to room;134-bed-b.parents followed the pt.transfer.v/s assessed;values w/in normal limits.per flacc pain mgx; pt.absent facial grimaces/body posturing.restraint;mitten;in place;skin/circulation w/in normal limits.mid line intact;paten;iv fluids infusing. i have placed the nsg/pt alert sign;re mid line extant.pt.assessed for cleanliness.pt.repositioned.daugherty cath intact;patent;urine content present.general status stable.respiratory status stable;slight labored.o2-sat%=94%.o2 therapy administered@2l/min via nasal cannulae. i have set-up suction e/q;i have suctioned the pt.call light/telephone placed w/in reach of the pt.
--- NOTE | 2019-09-19 21:00 | NUR ---
2100pmedications administered via the g/j-tube w/out resistance;initial flush w/in normal limits.i have initiated the g/j-tube feed administration;per the md's order;the initial rate is administered @50ml/hr.
--- NOTE | 2019-09-19 22:00 | NUR ---
pt.assessed.pt.presents quiescent affect;calm,somnolent.g/j-tube intact;patent:pt.tolerating the feed.residuals;scant. pt.assessed for cleanliness.pt repositioned.mid line intact;patent;iv fluids infusing.daugherty cath intact;patent urine content present.general status stable.respiratory status stable;slightly labored;02-sat%=94%.i have suctioned the pt.restraint; mitten intact;in place.skin/circulation intact w/in normal limits. call light/telephone placed w/in rec of the pt.the pt's parents have left.
--- NOTE | 2019-09-20 | NUR ---
pt.assessed.v/s assessed;values w/in normal limits.per flacc;pain mgx;pt.absent facial grimaces/body posturing. g-tube intact;patent;g-tube feed infusing.i have administered:h2-o flush.flushed w/out resistance.g-tube feed residual scant;5ml.i have suctioned the pt.general status stable.respiratory status stable;labored;slight.02-sat%= 94%call light/telephone placed w/in reach of the pt.restaint;mitten in place;skin/circulation w/in normal limits;intact.
[2019-09-20] MEDS: IPRATROPIUM/ALBUTEROL SULFATE 3 ML AMPUL.NEB (DUONEB) INH SCH ×4 (00:22→18:18)
--- NOTE | 2019-09-20 02:00 | NUR ---
pt.assessed pt.presents quiescent affect;calm,somnolent.pt.assessed for cleanliness.pt.repositioned.i have suctioned the pt. g-tube intact;patent;g-tube feed infusing.mid-line:intact;patent;iv fluids infusing.general status stable.respiratory status stable;labored;slight.o2-sat%=94% call light/telephone placed w/in reach of the pt.restraint;mitten;lt.hand intact .skin/circulation assessed w/in normal limits.
--- NOTE | 2019-09-20 04:00 | NUR ---
pt.assessed.pt.presents quiescent affect;calm,somnolent.g/j-tube assessed intact;patent;g/j tube feed infusing. pt.assessed for cleanliness.pt.repositioned.mid line intact.patent;iv fluids infusing.general status stable.respiratory status stable.o2-sat%=94%.i have suctioned the pt.daugherty cath intact;patent;urine content present.call light/ telephone placed w/in the reach of the pt.
[2019-09-20] MEDS: LEVOTHYROXINE SODIUM 0.1 MG VIAL IVP SCH (06:18)
[2019-09-20] MEDS: NACL 0.9% 1,000 ML IV SCH (06:19)
--- NOTE | 2019-09-20 06:30 | NUR ---
pt.assessed.pt.presented emesis;;green;copious amount.pt.suctioned i have turned off the g/j-tube feed. pt.assessed for cleanliness.pt. repositioned.mid line intact;patent. iv fluids infusing.i have changed the iv fluids;ns bag.i have administer the synthriod ivp:0700a dose via the mid line.call light/telephone placed w/in reach of the pt.
--- NOTE | 2019-09-20 08:00 | NUR ---
ASSUMPTION OF CARE: RECEIVED PT AWAKE, NON-VERBAL, DX:RISK FOR INJURY, R/T UROSEPSIS, VSS, BREATH SOUNDS HAVE CRACKLES AND WHEEZES, O2 SAT=98% WHILE ON 3L VIA NC, HHN ORDERED ROUTINELY, ORAL AND NASAL SUCTIONING IMPLEMENTED PRN, TOLERATING FAIR, PT ASPIRATING GREEN COLORED FLUID OUTPUT IN LARGE AMOUNTS, SUCTIONED NEEDED, M.D. AWARE. IV PICC LINE INTACT, PATENT, INSERTED TO LEFT UPPER ARM, WITH SOME SWELLING NOTED, G-TUBE CLAMPED AT THIS TIME, MURPHY CATHETER DRAINING TO GRAVITY, CLEAR YELLOW URINE, ROOM CLOSE TO NURSES STATION, CLOSE MONITORING THROUGHOUT SHIFT, CALL LIGHT PLACED WITHIN REACH, WILL CONT' TO MONITOR AND ASSESS.
[2019-09-20 08:40] LABS: BASOPHILS # (AUTO) 0.1 K/uL (0.0-0.2); BASOPHILS % (AUTO) 0.7 % (0.0-2.0); EOSINOPHILS # (AUTO) 0.3 K/uL (0.0-0.4); EOSINOPHILS % (AUTO) 3.5 % (0.0-4.0); HEMATOCRIT 33.3 % (36-54); LYMPHOCYTES # (AUTO) 0.9 K/uL (1.0-5.5); LYMPHOCYTES % (AUTO) 10.2 % (20.5-51.5); MEAN CORPUSCULAR HEMOGLOBIN 30 pg (27-31); MEAN CORPUSCULAR HGB CONC 33 % (32-36); MEAN CORPUSCULAR VOLUME 91 fL (79.0-98.0); MONOCYTES # (AUTO) 0.3 K/uL (0.0-1.0); MONOCYTES % (AUTO) 3.6 % (1.7-9.3); NEUTROPHILS # (AUTO) 7.5 K/uL (1.8-7.7); PLATELET COUNT (AUTO) 439 K/uL (130-430); RED BLOOD CELL COUNT(AUTO) 3.66 MIL/uL (4.2-6.2); RED CELL DISTRIBUTION WIDTH 16.4 % (9.0-15.0); WHITE BLOOD COUNT (AUTO) 9.1 K/uL (4.8-10.8)
[2019-09-20] MEDS: FAMOTIDINE PF 20 MG/2 ML VIAL IVP SCH (08:55)
[2019-09-20] MEDS: NAPH,MB-DB/K PH,MBDB 250 MG TAB NG SCH ×3 (08:55→22:11)
[2019-09-20] MEDS: CHOLESTYRAMINE/SUCROSE 4 GM/PACKET PO SCH ×2 (08:55→22:11)
[2019-09-20] MEDS: ENOXAPARIN SODIUM 40 MG/0.4 ML SYRINGE SUBCUT SCH (08:56)
[2019-09-20] MEDS: NYSTATIN 15 GM TOPICAL POWDER TP SCH ×2 (08:58→22:11)
--- NOTE | 2019-09-20 09:00 | NUR ---
BACK TENDER CLOTH PRINTING: MORNING MEDS GIVEN, PER ORDERED BY Charles, TOLERATED WELL, WILL CONT' TO MONITOR AND ASSESS.
[2019-09-20 09:07] LABS: CALCIUM 8.4 mg/dL (8.4-11.0); CREATININE 0.29 mg/dL (0.55-1.30); POTASSIUM 4.1 mmol/L (3.5-5.1)
[2019-09-20 12:21] VITALS: BP_SYST 113
[2019-09-20] MEDS ORDERED: FUROSEMIDE 20 MG/2 ML VIAL IVP ONE (14:00)
--- NOTE | 2019-09-20 15:00 | NUR ---
VISIT: AT BEDSIDE FOR ASSESSMENT OF PT, SPOKE WITH FAMILY REGARDING POC, VERBALIZES UNDERSTANDING, WILL CONT' WITH POC.
--- NOTE | 2019-09-20 16:08 | NUR ---
Case mgt: Pt's mother Rafaela Espino at bedside--LTAC eval done by Lorin and pt is off IV abx now-IV central line is being dc'd-has J-tube feedings, s/p exp laparotomy--bedbound--doesn't meet LTAC criteria--Lorin s/w tank charger Singh this am to review case. Pt's mom wants SNF out towards [place] or [place] and is aware pt is connected with [facility]--I left for Michael Jacobsen at [facility] [phone] to call us re: SNF placement--Brochures given to Rafaela for [facility], [facility], [facility] in [place]--Rafaela Graf. Rafaela will research SNFs f f [facility]--SVITLANA MUSA
[2019-09-20 16:28] VITALS: BP_SYST 108
--- NOTE | 2019-09-20 18:30 | NUR ---
BERKLEY: AT BEDSIDE NFOR ASSESSMENT OF PT, NEW ORDERS GIVEN, WILL CONT' WITH POC.
[2019-09-20] MEDS ORDERED: METOCLOPRAMIDE HCL 10 MG/10 ML UDC GT PRN (18:45)
--- NOTE | 2019-09-20 19:45 | NUR ---
OPENING NOTES Patient is resting in bed, eyes open, breathing evenly and nonlabored on 2L NC. Patient has a PICC line on the JAMIR, patent and benign, no s/s of infiltration or infection noted. Patient has a Cross Catheter secured and draining by gravity. Educated patient on plan of care and call light system, patient unable to respond due to cognitive limitations. Bed is locked, armed and at lowest position. Fall/safety precautions. Will continue to monitor. Addendum: 09/21/19 at 0431 by Giles Looney RN crackles/gurgling visibly heard
[2019-09-20 20:00] VITALS: BP_SYST 114
--- NOTE | 2019-09-20 23:10 | NUR ---
2310 NSL SXN PT. PT VOMITING BILE. PUT IN NSL TRUMPET. PT DID NOT TOLERATE. DIMPLE CLAYTON AWARE. Addendum: 09/21/19 at 0056 by Lyly Arechiga RT Amended: Links added.
--- NOTE | 2019-09-20 23:55 | NUR ---
MEDICATION/ROUNDS Patient is resting in bed, eyes open, breathing evenly, gurgling/crackles noted, suctioned patient. Educated patient on medications, patient unable to state understanding due to cognitive limitations. Administered medications, patient tolerated it well. No other needs at this time. Fall/safety/aspiration precautions.
[2019-09-21 00:22] VITALS: BP_SYST 101
[2019-09-21] MEDS: IPRATROPIUM/ALBUTEROL SULFATE 3 ML AMPUL.NEB (DUONEB) INH SCH ×4 (01:00→19:00)
--- NOTE | 2019-09-21 01:00 | NUR ---
HOLD GT FEEDING Spoke to Dr. Zaman regarding patient, updated MD regarding patient's status, MD ordered to hold GT feeding.
--- NOTE | 2019-09-21 02:00 | NUR ---
ORDER FOR NGT INSERTION AND INTERMITTENT SUCTIONING Spoke with Dr. Hassan, updated MD regarding patient's condition, MD ordered for NGT placement and intermittent suctioning.
--- NOTE | 2019-09-21 02:45 | NUR ---
NGT Attempted to insert NG tube two times, NGT unable to advance all the way to the stomach due to resistance.
[2019-09-21] MEDS: NACL 0.9% 1,000 ML IV SCH (04:00)
--- NOTE | 2019-09-21 04:37 | NUR ---
ROUNDS Patient is resting in bed, eyes open, breathing evenly, crackling/gurgling sound can be heard, suctioned patient through the mouth. No other needs at this time. Fall/safety/aspiration precautions.
[2019-09-21] MEDS: LEVOTHYROXINE SODIUM 0.1 MG VIAL IVP SCH (05:43)
--- NOTE | 2019-09-21 06:13 | NUR ---
SPOKE WITH DR. HARDEN Spoke with Dr. Harden, notified MD of patient's status, patient is on nonrebreather mask on 15L of oxygen with O2 sat of 93%, respirations was over 40. Patient was throwing up bile and sustaining HR of 120s for the last hour. Notified regarding attempt to place NGT to try intermittent suctioning. MD wants to wait for chest xray results, called radiology to have chest xray results stat.
--- NOTE | 2019-09-21 06:39 | NUR ---
Spoke to Dr. Hassan regarding patient's status, unable to insert NGT earlier, no new orders at this time, will try to insert ngt when patient's breathing stable.
--- NOTE | 2019-09-21 06:52 | NUR ---
SUCTION Patient vomited green bile, suctioned mouth, moderate amount of green bile noted, patient repositioned, remains on nonrebreather mask at 15 liters, aspiration precautions maintained, will continue to monitor until report given to am nurse.
--- NOTE | 2019-09-21 07:30 | NUR ---
ASSUMPTION OF CARE: RECEIVED PT IN RESPIRATORY DISTRESS, LUNG SOUNDS WITH CRACKLES AND WHEEZING, SUCTION GIVEN BY RESP THERAPIST, NO RELIEF NOTED AT THIS TIME, HR= 120'S, RR=24, O2 SAT=93% WHILE ON NON-REBREATHER MASK WITH FIO2 50%, CXR SHOWS BILATERAL LOWER LOBE INFILTRATE, PRIMARY M.D., CALLED, AWAITING CALL BACK, WILL CONT' TO MONITOR AND ASSESS.
--- NOTE | 2019-09-21 07:45 | NUR ---
person to notify called and left message to Rafaela Espino at tel [phone]. called and sw NOK listed on file Layla Jung about patient's condition. Layla will help contact mother Rafaela
--- NOTE | 2019-09-21 07:50 | NUR ---
NOTIFICATION: RECEIVED CALL BACK FROM FAMILY OF PT (MOTHER), DISCUSSED PT CONDITION AND POC, MOTHER DECLINED AGGRESSIVE TX AT THIS STAGE, REQUEST FOR COMFORT CARE ONLY.
[2019-09-21] MEDS: MORPHINE 2 MG/ML INJ. SYRINGE IVP PRN ×3 (07:59→13:45)
[2019-09-21 08:00] VITALS: BP_SYST 162
[2019-09-21] MEDS: FAMOTIDINE PF 20 MG/2 ML VIAL IVP SCH (09:30)
[2019-09-21] MEDS: NAPH,MB-DB/K PH,MBDB 250 MG TAB NG SCH ×3 (09:30→21:00)
[2019-09-21] MEDS: CHOLESTYRAMINE/SUCROSE 4 GM/PACKET PO SCH ×2 (09:30→21:00)
[2019-09-21] MEDS: ENOXAPARIN SODIUM 40 MG/0.4 ML SYRINGE SUBCUT SCH (09:31)
[2019-09-21] MEDS ORDERED: MORPHINE I.V. DRIP 100 ML IV PRN ×3 (10:30→11:00)
--- NOTE | 2019-09-21 10:35 | NUR ---
PALLIATIVE CARE: SPOKE WITH MESHA CABA, INFORM OF FAMILY WISHES FOR PT, AGREED FOR COMFORT CARE TO BE GIVEN, ORDERS RECEIVED FOR MORPHINE DRIP AT THIS TIME, WILL CONT' TO MONITOR AND ASSESS.
[2019-09-21] MEDS ORDERED: MORPHINE PCA 50 mg/50 mL NS IV PRN (11:30)
[2019-09-21 12:00] VITALS: BP_SYST 159
--- NOTE | 2019-09-21 12:00 | NUR ---
COMFORT CARE: MORPHINE DRIP 2 MG/HR STARTED AT THIS TIME, TOLERATING WELL, 2 MG IV STARTING DOSE ALSO GIVEN IVP, WILL CONT' TO MONITOR AND ASSESS.
[2019-09-21] MEDS: MORPHINE PCA 50 mg/50 mL NS IV PRN (12:38)
--- NOTE | 2019-09-21 14:00 | NUR ---
NURSES NOTES: PT RESTING, AUDIBLE CRACKLES AND WHEEZING NOTED ON INSPIRATION AND EXPIRATION, GREEN COLORED FLUID OUTPUT UPON ORAL SUCTIONING, O2 SAT=95% WHILE ON O2 50% FIO2 NON-REBREATHER, POSITIONED WITH HOB UP 45 DEGREE, FAMILY AT BEDSIDE, CALL LIGHT PLACED WITHIN REACH, WILL CONT' TO MONITOR AND ASSESS.
[2019-09-21 16:25] VITALS: BP_SYST 159
--- NOTE | 2019-09-21 16:26 | NUR ---
Slot Machine Repairer Note Met with family at bedside. Patient receiving comfort care. Offered support and answered questions.
--- NOTE | 2019-09-21 18:00 | NUR ---
END OF SHIFT: PT RESTING IN POSITION OF COMFORT, NO VOMITING OR RESP DISTRESS NOTED AT THIS TIME, TOLERATING MORPHINE DRIP WITH NO ADVERSE REACTION NOTED, BREATHING EASY, O2 SAT=99% ON 50% NON-REBREATHER, FAMILY REMAINS AT BEDSIDE, WILL CONT' TO MONITOR, WILL ENDORSE TO ANATOMY TEACHER NURSE.
--- NOTE | 2019-09-21 19:50 | NUR ---
OPENING NOTES Received report from morning shift RN. Patient is resting in bed, eyes closed breathing evenly and nonlabored on nonrebreather mask on 15L of oxygen. Family at the bedside. Patient has a PICC line on the JAMIR, patent and benign, no s/s of infiltration or infection noted. Patient has a Cross Catheter secured and draining by gravity. Educated patient and family on plan of care, fall/safety/aspiration precautions, and call light system, patient unable to respond due to cognitive limitations, family stated understanding. Bed is locked, armed and at lowest position. Fall/safety precautions. Will continue to monitor. Addendum: 09/21/19 at 2305 by Giles Looney RN palliative care/comfort care measures.
[2019-09-21 19:55] VITALS: BP_SYST 99
[2019-09-21] MEDS: NYSTATIN 15 GM TOPICAL POWDER TP SCH (21:00)
--- NOTE | 2019-09-21 21:45 | NUR ---
ROUNDS Patient is resting in bed, eyes closed, breathing evenly and nonlabored on 15L of oxygen via nonrebreather mask. No s/s of distress at this time, no other needs at this time. Fall/safety/aspiration precautions. Will continue to monitor.
[2019-09-22 00:17] VITALS: BP_SYST 120
--- NOTE | 2019-09-22 00:26 | NUR ---
ROUNDS Patient resting quietly, remains on 02 @ 15 Liters, vital signs stable, Morphine drip continues to infuse, safety measures in place, will closely monitor.
[2019-09-22] MEDS: IPRATROPIUM/ALBUTEROL SULFATE 3 ML AMPUL.NEB (DUONEB) INH SCH ×2 (01:00→07:00)
--- NOTE | 2019-09-22 02:15 | NUR ---
ROUNDS Patient is resting in bed, eyes closed, breathing evenly and nonlabored on 15L of oxygen via nonrebreather mask. Morphine drip infusing. No s/s of distress at this time, no other needs at this time. Fall/safety/aspiration precautions. Will continue to monitor.
[2019-09-22] MEDS: NACL 0.9% 1,000 ML IV SCH (03:35)
--- NOTE | 2019-09-22 04:15 | NUR ---
ROUNDS Patient resting quietly, remains on nonrebreather mask with 15L of oxygen, vital signs are stable, Morphine drip infusing, fall/safety/aspiration precautions, will continue to monitor.
[2019-09-22] MEDS: LEVOTHYROXINE SODIUM 0.1 MG VIAL IVP SCH (06:00)
--- NOTE | 2019-09-22 06:27 | NUR ---
CLOSING NOTES Patient resting quietly, remains on nonrebreather mask with 15L of oxygen, Morphine drip infusing, fall/safety/aspiration precautions, will endorse care to morning shift RN.
[2019-09-22 07:47] VITALS: BP_SYST 98
--- NOTE | 2019-09-22 07:50 | NUR ---
Patient on palliative care/comfort measure Morphine drip at 2 mg/hour , no sign of acute discomfort, blink his eyes if called by name , oral care given, will monitor.
--- NOTE | 2019-09-22 09:30 | NUR ---
Skin/comfort Perineal care given , mild redness skin cream barrier applied , bilateral heal with blister kept dry/clean covered by optifoam dressing , off load supported by pillow ,oral suction using Yankauer with greenish secretion, kept on semi magana, repositioned to left.
[2019-09-22 11:10] VITALS: BP_SYST 100
[2019-09-22] MEDS: MORPHINE 2 MG/ML INJ. SYRINGE IVP PRN (13:27)
--- NOTE | 2019-09-22 13:32 | NUR ---
ON Morphine HEEL SEAT POUNDER @ 2 MG /HOUR for comfort measure while waiting for medication , IV push given x1 for comfort measure , looks comfortable , oral deep suction done using Yankauer with greenish secretion ,kept mouth moist , on non rebreathing mask at 15 liters saturation 92% , will monitor.
--- NOTE | 2019-09-22 14:02 | NUR ---
PAGED PAGED KENNY LORENZO AT [phone] SPOKE WITH YOLANDA.
[2019-09-22] MEDS: MORPHINE PCA 50 mg/50 mL NS IV PRN (14:09)
[2019-09-22 15:06] VITALS: BP_SYST 115
[2019-09-22] MEDS ORDERED: ONDANSETRON HCL 4 MG/2 ML VIAL IVP PRN (15:15)
--- NOTE | 2019-09-22 16:20 | NUR ---
Neuro/respiratory Patient deep sleep ,still blink her eyes ,bilateral lung sounds with crackles oxygen saturation 94% , ON morphine continues at 2mg/hour.
--- NOTE | 2019-09-22 16:41 | NUR ---
Patient repositioned by staff every 2 hours with pillow support., oral suctioned with greenish secretion.
--- NOTE | 2019-09-22 19:15 | NUR ---
CHANGE OF SHIFT; pt. non verbal, pretty sedated, Morphine drip @ 2mg/hr= 2cc/hr. on high fowlers position, on 100% NRM, sounds gurgly on his throat. pt. parents are at bedside, been updated on pt. status by day shift nurse Flaquita. pt. is DNR status. will reassess later.
[2019-09-22 20:15] VITALS: BP_SYST 112
--- NOTE | 2019-09-22 20:15 | NUR ---
NOTES: VS checked. suctioned orally with thick mucus secretions with some dark black mucus with it, tongue, very dry and blackish in color. on 100% NRM, O2 sat 99%. kept HOB elevated, pt. mouth open. fairly contracted on both upper and lower extremities. PICC line on left upper arm , IV NS @ 20 cc/hr and Morphine drip @ 2 mg/hr. for comfort measures. cardiac pattern on sinus tach HR 103. left arm swollen. abdomen pretty distended, steri strips on incision , intact. G tube intact and clamped. daugherty cath to OSD. frequent rounds, unable to use call light.
--- NOTE | 2019-09-22 21:00 | NUR ---
NOTES: complete hs care done with ASSURANCE MANAGER. oral/marck care done. sacral wound covered with foam dressing, intact. repositioned. suctioned orally. Addendum: 09/22/19 at 2233 by Kristine Russell RN pt. does not have sacral wound. sacral reddened but no open sore, cleanse with soap and water/pat dry and applied z minal cream/ both heels with foam dressing with wound, kept elevated with pillows.
--- NOTE | 2019-09-22 23:00 | NUR ---
NOTES: condition guarded. pretty calm, pt. eyes closed. kept O2 @ 100-% NRM.
[2019-09-23 00:10] VITALS: BP_SYST 110
--- NOTE | 2019-09-23 00:30 | NUR ---
NOTES: rechecked BP 110/66 HR 102, pretty calm and appears sleeping comfortably with Morphine drip continuous.
--- NOTE | 2019-09-23 02:30 | NUR ---
NOTES: condition guarded, pt. sleeping, Morphine drip @ 2mg/hr continuous. continue to monitor.
[2019-09-23 03:00] VITALS: BP_SYST 102
--- NOTE | 2019-09-23 04:30 | NUR ---
NOTES: condition unchanged. pt. sleeping.
[2019-09-23] MEDS: NACL 0.9% 1,000 ML IV SCH (05:01)
--- NOTE | 2019-09-23 05:30 | NUR ---
NOTES: oral care done, no bm. repositioned. kept HOB elevated. Morphine drip continuous.
--- NOTE | 2019-09-23 06:45 | NUR ---
CLOSING NOTES; condition observed. Morphine drip @ 2mg/hr and NS @ 20 cc/hr via PICC line on left arm, appears swollen, kept elevated. rt. very contracted. both feet remains swollen as well. abdomen distended. kept NPO , gtube site clean with small dressing.daugherty cath to OSD. O2 @ 100% NRM, mouth breather. needs suctioning prn, mouth gets so dry. for further care and assistance. borderline sinus tach/sinus rhythm. frequent rounds. will endorse to day shift nurse.
[2019-09-23 08:00] VITALS: BP_SYST 93
--- NOTE | 2019-09-23 08:00 | NUR ---
initial notes rec patient opens eyes but non verbally responsive. on non rebreather mask and sat at 99 %. pt was suctioned obtaining scanty amount of thin secretions. bed to the lowest position and side rails up and locked. call light withn reached.
--- NOTE | 2019-09-23 10:30 | NUR ---
rounds suctioned patient obtaining thick greenish secretion. turned repositioned for comfort.
--- NOTE | 2019-09-23 12:00 | NUR ---
WOUND RE-EVALUATION: Late note for 1200 secondary to patient care. Patient received in a Alhambra Bed with an Isoflex GABBY mattress with low air loss therapy, awake, obtunded. Patient is unable to turn in bed independently. Malik Score is an 8. Intrinsic factors that delay wound healing: Hypoalbuminemia. Extrinsic factors that delay wound healing: Immobility. Patient is on Morphine drip and comfort measures per attending RN. Wound Assessment: 1. Left lateral heel: sDTI. Bulla closed with 80% dark discoloration, 20% white discoloration, hard, flat. No odor, no drainage. Ana Laura-bulla intact. Bulla measures 5.7 cm x 5.6 cm. 2. Left lateral foot, posterior to malleolus: Bulla. Appears to have resolved. Site has dark pink discolored skin tissue. No odor, no drainage. Site measures 0.5 cm x 0.5 cm. 3. Right posterior heel: Bulla. Bulla closed but flat and hard with 5% pink and 95% light madhu discoloration. No odor, no drainage. Ana Laura-bulla intact. Bulla measures 2.1 cm x 1.5 cm. Recommend continue: Offload involved areas at all times by placing feet in heel lift boots. During hourly rounds check boots to ensure that involved areas are not touching boots. 4. Scrotal area: Erythema from IAD. 5. Perianal/Perineal area: Erythema from IAD. Recommend continue: Cleanse involved areas with mild soap and water. Pat dry. Apply antifungal powder to involved areas. Perform site care twice a day, and as needed for soiling. 6. Gluteal Sulcus: Intertrigo with MASD. Site has 100% pink tissue. No odor, no drainage. Periwound intact. Site measures 1.1 cm x 0.1 cm. Recommend continue: Cleanse involved area with mild soap and water. Pat dry. Apply Calmoseptine cream to involved area. Cover with Sacral foam dressing. Perform site care daily, and as needed for dressing soiling or dislodgment. Also recommend continue: Reposition patient [id number] only every 2 hours with pillow support (keep one pillow underneath lower extremity on bed and one pillow in between knees and ankles at all times), and off-load pressure areas with pillows for pressure re-distribution. Offload, elevate and float bilateral feet/heels with HeeLift boots. During hourly rounds check boots to ensure that involved areas are not touching boots. Perform skin care and monitor skin integrity Q shift. Use moisture barrier cream on buttocks and other moisture susceptible areas QID and as needed for soiling. Maintain patient on a low air-loss mattress. Addendum: 09/23/19 at 1713 by Tyler Joshi RN Error, incorrect measurements entered. Please see below for correct measurements: 1. Left lateral heel: sDTI. Bulla closed with 90% dark discoloration, 10% white discoloration, hard, flat. No odor, no drainage. Ana Laura-bulla intact. Bulla measures 5.9 cm x 5.6 cm. 2. Left lateral foot, posterior to malleolus: Bulla. Appears to have resolved. Site has dark pink discolored skin tissue. No odor, no drainage. Site measures 1.2 cm x 1.2 cm. 3. Right posterior heel: Bulla. Bulla closed but flat and hard with 10% white and 90% light madhu discoloration. No odor, no drainage. Ana Laura-bulla intact. Bulla measures 2.2 cm x 1.4 cm. Recommend continue: Offload involved areas at all times by placing feet in heel lift boots. During hourly rounds check boots to ensure that involved areas are not touching boots. 4. Scrotal area: Erythema from IAD. 5. Perianal/Perineal area: Erythema from IAD. Cleanse involved areas with mild soap and water. Pat dry. Apply antifungal powder to involved areas. Perform site care twice a day, and as needed for soiling. 6. Gluteal Sulcus: Intertrigo with MASD. Site has 100% pink tissue. No odor, no drainage. Periwound intact. Site measures 1.1 cm x 0.1 cm. Cleanse involved area with mild soap and water. Pat dry. Apply Calmoseptine cream to involved area. Cover with Sacral foam dressing. Perform site care daily, and as needed for dressing soiling or dislodgment. Reposition patient [id number] only every 2 hours with pillow support (keep one pillow underneath lower extremity on bed and one pillow in between knees and ankles at all times), and off-load pressure areas with pillows for pressure re-distribution. Offload, elevate and float bilateral feet/heels with HeeLift boots. During hourly rounds check boots to ensure that involved areas are not touching boots. Perform skin care and monitor skin integrity Q shift. Use moisture barrier cream on buttocks and other moisture susceptible areas QID and as needed for soiling. Maintain patient on a low air-loss mattress.
--- NOTE | 2019-09-23 12:42 | NUR ---
Hospice Spoke with Wendie from [facility], p [phone] f [phone], and faxed patient's information. She will call patient's mother. Addendum: 09/23/19 at 1326 by Bozena Neely LCSW Spoke with Wendie with [facility]. She spoke with patient's mother and they plan to meet at [facility] at 18:00 tonight. It seems it would not be possible for patient to return to [facility] with hospice. Patient would need SNF. Patient's mother is reluctant to have patient go to SNF, especially if it is not local. [facility] would not be placing patient at a closer SNF to the home. The family had a negative experience with hospice care in a SNF in the past. SPRINKLER HELPER phoned [facility] ([facility]) p [phone] f [phone]. They have an inpatient hospice bed available. Phoned patient's mother, Rafaela Espino [phone], and left a voicemail message asking if she would like to consider [facility]. Addendum: 09/23/19 at 1656 by Bozena Neely LCSW Tried calling mother twice more with no answer. Valve Fitter will follow up tomorrow.
[2019-09-23 12:43] VITALS: BP_SYST 90
[2019-09-23] MEDS: MORPHINE PCA 50 mg/50 mL NS IV PRN (14:45)
--- NOTE | 2019-09-23 14:56 | NUR ---
rounds seen by dr isadora galan md and dr thrasher at bedside. morphine awning installer was changed with maria antonia alford at bedside.
[2019-09-23 16:50] VITALS: BP_SYST 90
--- NOTE | 2019-09-23 19:07 | NUR ---
closing notes selina nurse was here and talk to pt's mother. no sob noted. bed to the lowest positon and gardening supervisor ails up and locked. stable needs attended.
--- NOTE | 2019-09-23 19:25 | NUR ---
CHANGE OF SHIFT; pt. checked ,non verbal , on continuous Morphine drip @ 2mh/hr for comfort measures, pt. DNR with parents at bedside. Hospice nurse here from [facility] to talk to pt. parents. will reassess later.
--- NOTE | 2019-09-23 20:00 | NUR ---
NOTES: Hospice nurse talked to pt. parents. condition updated with them. pt. non verbal, pretty sedated with morphine drip via PICC line on left upper arm with NS @ 20 cc/hr., noted some movement of left hand on stimulation. G tube site cleaned but remain clamped, kept NPO. abdomen pretty distended. some incision with steri strips, open to air. daugherty cath to OSD. both legs pretty contracted and rt arm, both feet edematous, sequential compression intact. both legs/feet elevated.
[2019-09-23 21:00] VITALS: BP_SYST 100
--- NOTE | 2019-09-23 22:00 | NUR ---
NOTES: repositioned. suctioned orally and oral care done, HOB elevated. cardiac pattern borderline sinus rhythm and sinus tach.
--- NOTE | 2019-09-24 00:30 | NUR ---
NOTES: condition unchanged. suctioned orally. kept O2 @ 100% NRM
[2019-09-24 00:53] VITALS: BP_SYST 115
--- NOTE | 2019-09-24 02:30 | NUR ---
NOTES: continuous Morphine drip @ 2mg/hr= 2cc/hr. continue to monitor. repositioned.
--- NOTE | 2019-09-24 04:00 | NUR ---
NOTES: condition remains the same. continue to monitor. Morphine drip @ 2mg/hr. repositioned.
--- NOTE | 2019-09-24 05:00 | NUR ---
NOTES: complete am care done. marck and oral care, suctioned orally with thick mucus secretions, sound gurgly. repositioned, quite difficult because of contractures, both feet pretty swollen, kept elevated with pillows. O2 sat 98-100%. Left arm remain swollen, also elevated with pillow. urine output pretty flaco in color. G tube site cleaned with new gauze dressing applied.
[2019-09-24] MEDS: NACL 0.9% 1,000 ML IV SCH (06:21)
--- NOTE | 2019-09-24 06:45 | NUR ---
CLOSING NOTES; condition unchanged. On continuous Morphine drip @ 2 mg/hr. for comfort measures only and NS @ 20cc /hr via PICC line on left upper arm. O2 @ 100% NRM, suctioned orally with thick mucus secretions. bed alarm on, HOB elevated for easier breathing. for further care and assist and observation. will endorse to day shift. G tube clamped, daugherty cath intact.
--- NOTE | 2019-09-24 07:30 | NUR ---
AM ROUNDS: PATIENT ON NON REBREATHER MASK 100%,GOOD SATURATION. WITH MORPHINE DRIP AT 2CC/H FOR COMFORT MEASURES.MOUTH BREATHER.GENERALIZED EDEMA. QUADRIPLEGIC . J G-TUBE CLAMPED. MID INCISION WITH STERI STRIPS,CLEAN AND DRY.DNR.COMFORT MEASURES RENDERED ORDERED.SINUS RHYTHM.SINUS TACH IN THE MONITOR. Addendum: 09/24/19 at 1016 by Wenide Thacker RN ADDED NOTES: WITH MURPHY DRAINING TO DARK PADMINI URINE.
[2019-09-24 08:25] VITALS: BP_SYST 114
--- NOTE | 2019-09-24 09:50 | NUR ---
TURN TO SIDES: TURNED TO SIDES WITH LOT'S OF ASSISTANCE.WITH PILLOWS ON BOTH ARMS ELEVATED FOR EDEMA.BILATERAL LOWER EXTREMITIES OFF LOAD,WITH PILLOWS UNDERNEATH HEELS.MORPHINE DRIP RUNNING AT 2CC/H FOR COMFORT MEASURES ONLY. STABLE AND COMFORTABLE THIS TIME.
--- NOTE | 2019-09-24 11:30 | NUR ---
RN ROUNDS: NOT IN ANY DISTRESS. O2 SATURATION 98% ON NON REBREATHER MASK,100%.
[2019-09-24 13:20] VITALS: BP_SYST 118
--- NOTE | 2019-09-24 13:40 | NUR ---
RN ROUNDS: STILL ON NON REBREATHER MASK-100%. MAINTAINED ON MORPHINE DRIP @ 2CC/H ,PATIENT COMFORTABLE. MURPHY IN PLACE. NO ACUTE DISTRESS.
--- NOTE | 2019-09-24 14:43 | NUR ---
Hospice: EMPLOYMENT INTERVIEWER phoned Wendie from [facility] who RN met with mother last night but wanted information only. EMPLOYMENT INTERVIEWER phoned mother, Rafaela who stated she is still looking for facilities in the [facility], and agreed to be referred to another hospice agency, [facility] in the [facility]. Allen Jesus from hospice came by to get a visual on patient is working on getting her transferred to hospice soon. Pt will remain available. Addendum: 09/24/19 at 1447 by Zain Granados MSW EMPLOYMENT INTERVIEWER will remain available. Addendum: 09/24/19 at 1540 by Zain Granados MSW SS received a call from Allen Jesus with [facility]. Pt is admitted and will sign paperwork later today.
--- NOTE | 2019-09-24 15:00 | NUR ---
WOUND CARE/PHOTOS: WOUND CARE BILATERAL HEEL RENDERED .PLS SEE ASSESSMENT NOTES.PHOTOS TAKEN AND ATTACHED TO CHART.
[2019-09-24 16:53] VITALS: BP_SYST 133
[2019-09-24] MEDS: MORPHINE PCA 50 mg/50 mL NS IV PRN (17:24)
--- NOTE | 2019-09-24 18:30 | NUR ---
SUCTION PRN: OBTAINED LARGE AMOUNT OF HUFFMAN COLORED SECRETIONS VIA ORAL.
--- NOTE | 2019-09-24 19:07 | NUR ---
CLOSING NOTES: STILL WAITING FOR A DIFFERENT HOSPICE PER FAMILY.SS WORKER TO UPDATE IN AM. MAINTAINED NON REBREATHER MASK 100%.WITH GOOD SATURATION. MURPHY IN PLACE. LEFT PICC LINE,I/2 NS AT 20CC/H AND MORPHINE DRIP AT 2CC/H.COMFORTABLE THIS TIME.COMFORT MEASURES RENDERED. CONTINUE TO MONITOR.
--- NOTE | 2019-09-24 19:35 | NUR ---
ROUNDS PATIENT RESTING COMFORTABLY IN BED, ON 100% NON REBREATHER MASK, O2 SAT 98%, NO SIGNS OF ANY PAIN AND DISCOMFORT NOTED. DNR, SINUS TACH ON THE TELE MONITOR. ASSESSMENT DONE AND DOCUEMNTED. SEE FLOWHEET. NEEDS ATTENDED TO. SECRETIONS SUCTIONED, TURNED AND REPOSITIONED AND MADE COMFORTABLE. WILL CONTINUE TO MONITOR.
[2019-09-24 20:00] VITALS: BP_SYST 122
--- NOTE | 2019-09-24 21:40 | NUR ---
PATIENT RESTING: Patient resting quietly. No acute distress noted. Vital signs within normal range.
--- NOTE | 2019-09-25 00:13 | NUR ---
ROUNDS PATIENT ASLEEP, RESPIRATIONS EVEN AND UNLABORED, WILL CONTINUE TO MONITOR.
[2019-09-25 01:52] VITALS: BP_SYST 153
--- NOTE | 2019-09-25 02:17 | NUR ---
PATIENT RESTING: Patient resting quietly. No acute distress noted. Vital signs within normal range.
--- NOTE | 2019-09-25 04:20 | NUR ---
ROUNDS PATIENT ASLEEP, RESPIRATIONS EVEN AND UNLABORED, WILL CONTINUE TO MONITOR.
--- NOTE | 2019-09-25 06:31 | NUR ---
CLOSING NOTES PATIENT RESTING, EYES CLOSED, NOT IN DISTRESS, VITALS STABLE. MORPHINE DRIP INFUSING AT ORDERED RATE. ALL NEEDS ATTENDED TO. WILL CONTINUE TO MONITOR.
--- NOTE | 2019-09-25 07:20 | NUR ---
AM ROUNDS: PATIENT ON NON REBREATHER MASK AT 100%.WITH GOOD SATURATION. LEFT ARM PICC LINE,MORPHINE DRIP AT 2CC/H AND IV FLUIDS AT 20CC/H INTACT. MID ABDOMEN INCISION WITH STERI STRIPS IN PLACE. J G TUBE CLAMPED ORDERED.MURPHY IN SITU,PADMINI URINE IN THE BAG. BILATERAL SCD'S ON LE.BOTH HEEL WITH FOAM DRESSING ON. DNR. CONDITION GUARDED.
[2019-09-25 08:10] VITALS: BP_SYST 119
[2019-09-25] MEDS: NACL 0.9% 1,000 ML IV SCH (09:34)
--- NOTE | 2019-09-25 09:35 | NUR ---
SUCTION SECRETIONS: SUCTION SECRETIONS VIA ORAL,OBTAINED MODERATE AMOUNT OF HUFFMAN COLOR SECRETIONS.
--- NOTE | 2019-09-25 11:01 | NUR ---
Social Service Note: CRISTY spoke with Radha from [facility]; she has reached out to pt's mother; Radha left a message for pt's mother to call back to discuss hospice. Radha states that she is working with a SNF in [place] to see if they may have a SNF bed for pt. CRISTY will remain available for support. Addendum: 09/25/19 at 1331 by Eliana Navarro LCSW CRISTY spoke with Radha at [facility] who has found pt a bed at [facility]; Pt does have a share of cost. Pt could be admitted under hospice on 09/25/19. CM director has spoken to pt's mother to discuss pt's dc plan. Pt's mother is going to try and speak with [facility] and [place] about pt's SSI and using his money for the share of cost. Radha is also aware of conversations about pt's share of cost. CRISTY has left IMM letter at bedside for pt's mother. Pt's mother will be at the [facility] between 6-7pm; Radha is aware and will try to meet with pt's mother to discuss transfer and hospice consents.
--- NOTE | 2019-09-25 12:32 | NUR ---
RN ROUNDS: PATIENT STABLE. WITH SAME NON REBREATHER MASK AT 100%.COMFORTABLE THIS TIME. MORPHINE DRIP AT 2CC/H AND IV FLUIDS AT 20CC/H RUNNING WELL. MURPHY IN SITU. CONTINUE TO MONITOR.
--- NOTE | 2019-09-25 13:05 | NUR ---
DC Planning called mother Rafaela Espino advised [facility] found placement with [facility] however mother concerned about payment. CM Explained if patent's Social Security payment is going to [facility] it might be a better plan to have money allocated to SNF to cover the cost of pateint's care. Mother states she is unsure who gets the payment she will contact Meghan. Also explained Medicare Rights to Mother regarding her right to appeal DC as CM anticipated DC in the next 48 hours. Advised of IMM information by phone in front of [employer] advised mother will leave form at bedside she states unable to come until between 6-7pm tray. [facility] at [phone] spoke with Moni Jung [phone] advised Rafaela Espino has contacted [facility] and is working with Kayla Jacobsen to work out financials for SNF placement on hospice.
[2019-09-25 13:17] VITALS: BP_SYST 109
--- NOTE | 2019-09-25 15:15 | NUR ---
WOUND RE-EVALUATION: Late note for 1200 secondary to patient care. Patient received in a Keegan Bed with an Isoflex GABBY mattress with low air loss therapy, awake, obtunded. Patient is unable to turn in bed independently. Malik Score is an 8. Intrinsic factors that delay wound healing: Hypoalbuminemia. Extrinsic factors that delay wound healing: Immobility. Patient is on Morphine drip and comfort measures per attending RN. Wound Assessment: 1. Left lateral heel: sDTI. Bulla closed with 90% dark discoloration, 10% white discoloration, hard, flat. No odor, no drainage. Ana Laura-bulla intact. Bulla measures 4.5 cm x 4.0 cm. 2. Left lateral foot, posterior to malleolus: Bulla. Appears to have resolved. Site has dark pink discolored skin tissue. No odor, no drainage. Site measures 0.5 cm x 0.5 cm. 3. Right posterior heel: Bulla. Area of light madhu discoloration. Medial aspect of site has closed but flat and hard yellow bulla with small area of yellow bulla raised but closed. No odor, no drainage. Ana Laura-bulla intact. Bulla measures 4.0 cm x 5.5 cm. Recommend continue: Offload involved areas at all times by placing feet in heel lift boots. During hourly rounds check boots to ensure that involved areas are not touching boots. 4. Scrotal area: Erythema from IAD. 5. Perianal/Perineal area: Erythema from IAD. Recommend continue: Cleanse involved areas with mild soap and water. Pat dry. Apply antifungal powder to involved areas. Perform site care twice a day, and as needed for soiling. 6. Gluteal Sulcus: Intertrigo with MASD. Site has 100% red tissue. No odor, no drainage. Periwound intact. Calmoseptine cream covers site easily. Site measures 2.0 cm x 0.7 cm. Recommend continue: Cleanse involved area with mild soap and water. Pat dry. Apply Calmoseptine cream to involved area. Cover with Sacral foam dressing. Perform site care daily, and as needed for dressing soiling or dislodgment. Also recommend continue: Reposition patient [id number] only every 2 hours with pillow support (keep one pillow underneath lower extremity on bed and one pillow in between knees and ankles at all times), and off-load pressure areas with pillows for pressure re-distribution. Offload, elevate and float bilateral feet/heels with HeeLift boots. During hourly rounds check boots to ensure that involved areas are not touching boots. Perform skin care and monitor skin integrity Q shift. Use moisture barrier cream on buttocks and other moisture susceptible areas QID and as needed for soiling. Maintain patient on a low air-loss mattress.
--- NOTE | 2019-09-25 16:03 | NUR ---
Hospice Received a call from Sharon Jacobsen, , patient's [facility] catalytic case operator. They are responsible for patient's share of cost and will coordinate with the SNF for payment. Gave Lm contact information for Radha with [facility], . Also provided contact number for [facility], p [phone] f [phone]. Expect this will clear the way for discharge tomorrow to [facility] under the care of [facility]. Addendum: 09/25/19 at 1635 by Bozena Neely LCSW Reviewed above with Christel MUSA. Reviewed above with patient's mother. She stated she will be here at 6pm to sign hospice paperwork. Phoned Radha with [facility]. She spoke with Sharon at [facility]. All is expected to go through for discharge to [facility] tomorrow. Asked her to give RN tow hours notice.
[2019-09-25 16:25] VITALS: BP_SYST 108
[2019-09-25] MEDS: MORPHINE PCA 50 mg/50 mL NS IV PRN (17:49)
--- NOTE | 2019-09-25 17:50 | NUR ---
Suction: Suctioned secretions orally and obtained large amount of thick baumann secretions.Maintained non rebreather mask 100%,with good saturation.
--- NOTE | 2019-09-25 18:37 | NUR ---
End of shift: Patient maintained a non rebreather mask 100%,with o2 saturation of 98-100%.[facility] came and meet up with the patient's parents regarding hospice care.For possible transfer to [facility] with [facility] tomorrow.With Morphine drip at 2cc/h and iv fluids running at 20cc/h aat left upper arm picc line,dressing clean and dry. Right quadrant j-g tube clamped.Cross in situ. Bilateral heel dressing clean and dry.Safety measures rendered. Condition guarded.
--- NOTE | 2019-09-25 19:45 | NUR ---
ROUNDS PATIENT IN BED, NOT IN DISTRESS, ON 100% NON REBREATHER MASK, O2 SAT 98%. DNR. NO SIGNS OF ANY PAIN AND DISCOMFORT NOTED. ASSESSMENT DONE AND DOCUMENTED. SEE FLOWSHEET. NEEDS ATTENDED TO. TURNED AND REPOSITIONED AND MADE COMFORTABLE. WILL CONTINUE TO MONITOR.
--- NOTE | 2019-09-25 22:13 | NUR ---
ROUNDS PATIENT SUCTIONED, SECRETIONS MODERATE AND THICK. WILL CONTINUE TO MONITOR.
--- NOTE | 2019-09-26 00:14 | NUR ---
ROUNDS PATIENT ASLEEP, RESPIRATIONS EVEN AND UNLABORED, NO SIGNS OF ANY PAIN AND DISCOMFORT NOTED. WILL CONTINUE TO MONITOR.
[2019-09-26 00:32] VITALS: BP_SYST 109
--- NOTE | 2019-09-26 04:23 | NUR ---
PATIENT RESTING: Patient resting quietly. No acute distress noted. Vital signs within normal range.
--- NOTE | 2019-09-26 06:50 | NUR ---
CLOSING NOTES NO SIGNIFICANT CHANGES NOTED, MORPHINE DRIP INFUSING WELL AT 2 ML/HR, NO SIGNS OF ANY PAIN NOTED. WILL ENDORSE TO INCOMING SHIFT NURSE.
--- NOTE | 2019-09-26 07:21 | NUR ---
Opening Note received bedside SBAR report from division traffic superintendent RN, patient resting in bed, respirations even and unlabored on 15L non-rebreather, morphine drip at 2mg/hr, no pain noted using FLACC scale, educated patient on use of call light and asked to call for assistance, call light in reach, bed in low and locked position, bed alarm on.
[2019-09-26] MEDS: NACL 0.9% 1,000 ML IV SCH (07:48)
[2019-09-26 08:00] VITALS: BP_SYST 118
--- NOTE | 2019-09-26 10:05 | NUR ---
Wound Care educated patient on purpose and procedure for wound care, wound care completed, patient tolerated well, no pain noted during or after wound care, see MST shift assessment for wound care.
--- NOTE | 2019-09-26 12:29 | NUR ---
Suctioning oral suctioning provided, moderate amount of thick yellow secretions removed, patient tolerating well, patients O2 Sat 97% on non-rebreather 15L, morphine drip at 2mg/hr to left upper arm PICC, no pain noted using FLACC scale.
[2019-09-26 13:59] VITALS: BP_SYST 142
--- NOTE | 2019-09-26 14:22 | NUR ---
Spoke with SS/Suctioning spoke with Bozena from social media campaign manager, per Bozena discharge is pending bed availability, she will inform RN when bed is available, patient resting in bed, oral suctioning provided, moderate amount of thick yellow sputum, assisted patient to reposition, tolerated well, O2Sat 96% on 15L non rebreather.
--- NOTE | 2019-09-26 15:15 | NUR ---
Physician Rounds/Suctioning Dr. Lo at bedside examining patient, oral suctioning provided, moderate amount of thick yellow secretions, patient tolerated well, O2 Sat 97% on 15L non rebreather.
--- NOTE | 2019-09-26 15:58 | NUR ---
Spoke with Physician spoke with Dr. Harden, informed her that per social media specialist they are still awaiting bed placement for hospice care.
--- NOTE | 2019-09-26 16:23 | NUR ---
Social Service Note: DRILL SETUP OPERATOR placed call to Radha Beach ([phone]) with [facility] to obtain an update for pt; no answer, DRILL SETUP OPERATOR left a message. Last update from Radha was that [facility] was waiting for a bed from [facility]. DRILL SETUP OPERATOR provided nurses station contact number to Radha for follow up after hours.
[2019-09-26] MEDS: MENTHOL/ZINC OXIDE 113 GM OINT. TP PRN (16:32)
--- NOTE | 2019-09-26 16:40 | NUR ---
Suctioning oral suctioning provided, moderate amount of thick yellow secretions removed, patient tolerated well, patients O2 Sat 99% on 15L non rebreather.
--- NOTE | 2019-09-26 16:53 | NUR ---
WOUND RE-EVALUATION: Patient received in a Allen Bed with an Isoflex GABBY mattress with low air loss therapy, awake, obtunded. Patient is unable to turn in bed independently. Malik Score is a 10. Intrinsic factors that delay wound healing: Hypoalbuminemia. Extrinsic factors that delay wound healing: Immobility. Patient is on Morphine drip at 2 mg/hr. Wound Assessment: [facility]. 1. Left lateral heel: sDTI. Bulla closed with 90% dark discoloration, 10% white discoloration, hard, flat. No odor, no drainage. Ana Laura-bulla intact. 2. Left lateral foot, posterior to malleolus: Bulla. Appears to have resolved. Site has dark pink discolored skin tissue. No odor, no drainage. 3. Right posterior heel: Bulla. Area of light madhu discoloration. Medial aspect of site has closed but flat and hard yellow bulla with small area of yellow bulla raised but closed. No odor, no drainage. Ana Laura-bulla intact. Recommend continue: Offload involved areas at all times by placing feet in heel lift boots. During hourly rounds check boots to ensure that involved areas are not touching boots. 4. Scrotal area: Erythema from IAD. 5. Perianal/Perineal area: Erythema from IAD. Recommend continue: Cleanse involved areas with mild soap and water. Pat dry. Apply antifungal powder to involved areas. Perform site care twice a day, and as needed for soiling. 6. Gluteal Sulcus: Intertrigo with MASD. Site has 100% red tissue. No odor, no drainage. Periwound intact. Calmoseptine cream covers site easily. Recommend continue: Cleanse involved area with mild soap and water. Pat dry. Apply Calmoseptine cream to involved area. Cover with Sacral foam dressing. Perform site care daily, and as needed for dressing soiling or dislodgment. Also recommend continue: Reposition patient [id number] only every 2 hours with pillow support (keep one pillow underneath lower extremity on bed and one pillow in between knees and ankles at all times), and off-load pressure areas with pillows for pressure re-distribution. Offload, elevate and float bilateral feet/heels with HeeLift boots. During hourly rounds check boots to ensure that involved areas are not touching boots. Perform skin care and monitor skin integrity Q shift. Use moisture barrier cream on buttocks and other moisture susceptible areas QID and as needed for soiling. Maintain patient on a low air-loss mattress.
--- NOTE | 2019-09-26 17:39 | NUR ---
Suctioning oral suctioning provided, small amount of thick yellow secretions removed, patients O2 Sat 98% on 15L non rebreather, no pain noted using FLACC scale, patient on morphine drip 2mg/hr.
[2019-09-26 18:56] VITALS: BP_SYST 133
--- NOTE | 2019-09-26 19:20 | NUR ---
initial notes: pt is on bed. no acute distress. eyes open, non verbal. pt is on non rebreather mask at 15l.vital sign with in normal limit. pt is having a lot secretion to his throat. pt has ongoing ivf and morphine drip. morphine drip is empty, mix new morphine drip 50 mg/5oml with kenzie MUSA of day shift, pt has picc line- dressing is dry and intact and due dressing change on 09-27-2019, pt has daugherty catheter draining to yellow urine. pt is on orange gown and linen for dc today, but according to report- no bed ready, is aware. needs attended, call light in reach. safety on will closely monitor pt.
--- NOTE | 2019-09-26 19:28 | NUR ---
Closing Note bedside SBAR report given to receiving RN, patient resting in bed, no pain noted using FLACC scale, patient on non rebreather at 15L, removed morphine from pixis with Gennaro RN to make morphine drip of 50mg/50ml, morphine drip currently infusing at 2mg/hr to left upper arm PICC, no acute distress noted, educated patient on use of call light, call light in reach, bed in low and locked position, bed alarm on, care endorsed to night custodian RN.
[2019-09-26] MEDS ORDERED: MORPHINE SULFATE 10 MG/ML VIAL ONE (19:29)
[2019-09-26 19:47] VITALS: BP_SYST 140
--- NOTE | 2019-09-26 22:00 | NUR ---
pt is resting, no acute distress, morphine drip infusing well. no secretion on throat at this time. o2 sating to 96%, needs attended. safety on. will monitor.
[2019-09-26 23:43] VITALS: BP_SYST 121
--- NOTE | 2019-09-27 | NUR ---
pt is awake, eyes open, vital sign are within normal limit. suction pt through mouth.pt tolerate well. needs attended. safety on. will monitor.
--- NOTE | 2019-09-27 01:35 | NUR ---
suction pt at this time. tolerate well. o2 sating to 96%. stable. will monitor.
[2019-09-27] MEDS: NACL 0.9% 1,000 ML IV SCH (03:35)
--- NOTE | 2019-09-27 04:00 | NUR ---
pt is resting, comfortable. no acute distress, o2 sat at 95% on monitor. needs attended. safety on. will monitor.
[2019-09-27 05:34] VITALS: BP_SYST 126
--- NOTE | 2019-09-27 06:00 | NUR ---
pt is resting, comfortable. no acute distress, no secretion. o2 sat at 95% on monitor. needs attended. safety on. will monitor.
--- NOTE | 2019-09-27 07:20 | NUR ---
closing: pt is resting, comfortable. no acute distress, no secretion this time. o2 sat at 95% on monitor. on morphine drip 2ml/hr infusing well. safety on. bedside report given to am rn.
--- NOTE | 2019-09-27 07:35 | NUR ---
INITIAL NOTE PT RESTING, ON NON REBREATHER MASK, TOLERATING WELL. IVF INFUSING WELL. MORPHINE DRIP INFUSING WELL. CALL LIGHT WITHIN REACH, BED IN LOW AND LOCKED POSITION WITH BED ALARM ON.
[2019-09-27 08:00] VITALS: BP_SYST 113
--- NOTE | 2019-09-27 09:35 | NUR ---
RN ROUNDS PT RESTING, ON 15L NRM. NO ACUTE DISTRESS NOTED.
--- NOTE | 2019-09-27 10:18 | NUR ---
RN ROUNDS ORAL CARE AND SUCTIONING DONE AT BEDSIDE. CHANGED PT AND LINEN.
--- NOTE | 2019-09-27 12:18 | NUR ---
RN ROUNDS NO CHANGE IN ASSESSMENT. WILL CONTINUE TO MONITOR.
[2019-09-27 12:48] VITALS: BP_SYST 115
--- NOTE | 2019-09-27 14:18 | NUR ---
RN ROUNDS FAMILY AT BEDSIDE. NO CHANGE IN ASSESSMENT.
--- NOTE | 2019-09-27 16:15 | NUR ---
RN ROUNDS/DR. CONTI PT RESTING, ON NON REBREATHER MASK. FAMILY AT BEDSIDE. MD AT BEDSIDE EXAMINING PT. MD UPDATED PT ON POC, NO TUBE FEEDING DUE TO LACK OF PERISTALSIS, AND NO ORAL INTAKE DUE TO DYSPHAGIA. FAMILY VERBALIZED UNDERSTANDING.
[2019-09-27 16:44] VITALS: BP_SYST 113
--- NOTE | 2019-09-27 18:23 | NUR ---
CLOSING NOTE PT RESTING IN BED, ON 15L NRM, FAMILY AT BEDSIDE. IVF AND MORPHINE DRIP INFUSING WELL. MURPHY DRAINING TO GRAVITY. CALL LIGHT WITHIN REACH, BED IN LOW AND LOCKED POSITION WITH BED ALARM ON. ALL NEEDS MET THROUGH OUT SHIFT. CALL LIGHT WITHIN REACH, BED IN LOW AND LOCKED POSITION WITH BED ALARM ON. WILL CONTINUE TO MONITOR UNTIL PT CARE IS ENDORSED TO THERMOSPRAY OPERATOR RN.
--- NOTE | 2019-09-27 19:15 | NUR ---
initial notes: pt is on bed. resting comfortable.no acute distress. pt is on non rebreather mask at 15l. vital sign with in normal limit. no secretion at this time. pt has ongoing ivf at 20cc/hr and morphine drip at 2cc/hr- infusing well to left upper arm picc line. for comfort measure. pt has duagherty catheter draining to yellow urine.scd seen on bilateral leg. needs attended, call light in reach. safety on will closely monitor pt.
[2019-09-27 19:43] VITALS: BP_SYST 125
--- NOTE | 2019-09-27 22:00 | NUR ---
pt is resting, not distress. suctioning and mouth care done. pt tolerate well. needs attended. will monitor.
[2019-09-27 23:57] VITALS: BP_SYST 114
--- NOTE | 2019-09-28 00:03 | NUR ---
pt is resting, no secretion at this time, o2sat at 99%, needs attended, safety on. will monitor.
--- NOTE | 2019-09-28 01:39 | NUR ---
clean pt, linen and gown change. dressing change to picc line- done aseptically. suctioning and mouth care done. pt tolerate well. needs attended. side rails up. low bed position. will monitor.
[2019-09-28] MEDS: MORPHINE PCA 50 mg/50 mL NS IV PRN (04:00)
--- NOTE | 2019-09-28 04:00 | NUR ---
sleeping,comfortable. no acute distress. tolerating non rebreather mask sat at 96%, safety on. will monitor.
[2019-09-28] MEDS: NACL 0.9% 1,000 ML IV SCH (04:44)
--- NOTE | 2019-09-28 06:00 | NUR ---
sleeping, comfortable. no acute distress, suctioning and mouth care done. pt tolerate well. o2 sating to 95%, needs attended. safety on. will monitor.
--- NOTE | 2019-09-28 07:10 | NUR ---
closing: pt is resting, comfortable. no acute distress, clean and dry. o2 sat at 98% on monitor. on morphine drip 2ml/hr infusing well, ivf infusing. safety on. bedside report given to am rn.
--- NOTE | 2019-09-28 07:29 | NUR ---
INITIAL NOTE PT RESTING ON 15L NRM, TOLERATING WELL. BREATHING EVEN AND UNLABORED. NO ACUTE DISTRESS NOTED. IVF INFUSING WELL. AIRCRAFT MANAGER PUMP INFUSING WELL. MURPHY DRAINING TO GRAVITY. CALL LIGHT WITHIN REACH, BED IN LOW AND LOCKED POSITION WITH BED ALARM ON.
[2019-09-28 08:00] VITALS: BP_SYST 116
--- NOTE | 2019-09-28 09:30 | NUR ---
RN ROUNDS PT AWAKE AND COUGHING. COUGH IS MOIST. ORAL SUCTIONING DONE. PT TOLERATED WELL.
--- NOTE | 2019-09-28 09:52 | NUR ---
Social Service-Hospice Follow Up: CRISTY placed call to [facility] ([phone]) and spoke to Marcelle at the answering service who will page the county extension agent nurse for the weekend. CRISTY received call from Yumiko; Yumiko is going to research and figure out where [facility] is at with the SNF bed for pt. Addendum: 09/28/19 at 1102 by Eliana Navarro LCSW CRISTY received a call from Yumiko the county extension agent nurse for [facility] who states that they are still working on a contract with a SNF for a bed for pt. [facility] will call once the contract is arranged and pt has a bed at a SNF.
--- NOTE | 2019-09-28 11:01 | NUR ---
HOSPICE SPOKE WITH MANNY, SUPERVISOR [employer]. MANNY IS CONTACTING [facility], NO BEDS ARE AVAILABLE AT THIS TIME, BUT OFFICES ARE CLOSED ON WEEKEND AND TOMORROW DUE TO HOLIDAY. SHE WILL ATTEMPT TO CONTACT OTHER FACILITIES IN ATTEMPT TO GET A LOCATION. SHE WILL UPDATE FAMILY. MANNY [phone].
[2019-09-28 12:39] VITALS: BP_SYST 112
--- NOTE | 2019-09-28 13:00 | NUR ---
RN ROUNDS PT RESTING, NO ACUTE DISTRESS NOTED, PT REMAINS ON 15L NRM, SATURATING AT 100%. WILL CONTINUE TO MONITOR.
--- NOTE | 2019-09-28 15:00 | NUR ---
RN ROUNDS NO CHANGE IN ASSESSMENT, WILL CONTINUE TO MONITOR.
[2019-09-28 17:32] VITALS: BP_SYST 119
--- NOTE | 2019-09-28 18:36 | NUR ---
CLOSING NOTE PT RESTING ON 15L NRM, TOLERATING WELL. BREATHING EVEN AND UNLABORED. NO ACUTE DISTRESS NOTED. IVF INFUSING WELL. TRANSPORTATION COORDINATOR PUMP INFUSING WELL. MURPHY DRAINING TO GRAVITY. CALL LIGHT WITHIN REACH, BED IN LOW AND LOCKED POSITION WITH BED ALARM ON. FAMILY AT BEDSIDE. ALL NEEDS MET THROUGHOUT SHIFT. WILL CONTINUE TO MONITOR UNTIL PT CARE IS ENDORSED TO EMPLOYMENT SPECIALIST/PROGRAM MANAGER RN.
--- NOTE | 2019-09-28 19:15 | NUR ---
initial notes: pt is resting comfortable.no acute distress. on non rebreather mask at 15l. vital sign with in normal limit. no secretion at this time. pt has ongoing ivf at 20cc/hr and morphine drip at 2cc/hr- infusing well to left upper arm picc line. for comfort measure. pt has daugherty catheter draining to yellow urine.scd seen on bilateral leg. needs attended, call light in reach. safety on will closely monitor pt.
[2019-09-28 19:59] VITALS: BP_SYST 113
--- NOTE | 2019-09-28 22:00 | NUR ---
resting, comfortable. pt start coughing due secretion. suctioning done, thick secretion come out. mouth care done. pt tolerate well. needs attended. will monitor.
[2019-09-28 22:33] VITALS: BP_SYST 80
--- NOTE | 2019-09-29 00:43 | NUR ---
resting comfortable. no secretion at tis time. needs attended. will monitor.
--- NOTE | 2019-09-29 02:03 | NUR ---
sleeping,comfortable. no acute distress. tolerating non rebreather mask sat at 98%, safety on. will monitor.
--- NOTE | 2019-09-29 04:00 | NUR ---
clean pt, linen and chux change. suctioning and mouth care done. pt tolerate well. o2 sating 98%. needs attended. side rails up. low bed position. will monitor.
[2019-09-29] MEDS: MORPHINE PCA 50 mg/50 mL NS IV PRN (05:28)
[2019-09-29] MEDS: NACL 0.9% 1,000 ML IV SCH (05:31)
--- NOTE | 2019-09-29 06:15 | NUR ---
sleeping, not distress, no secretion. on morphine drip and ivf. needs attended, call light in reach. will monitor.
--- NOTE | 2019-09-29 08:00 | NUR ---
am notes pt in bed. resting comfortably. vitals stable. on 15 litre mask o2 sat 92%. ivf 20ml/hr and morphine drip 2 ml/hr continue as ordered. no s/s of pain or distress noted. repositioned for comfort kept comfortable. will continue to monitor
[2019-09-29 08:24] VITALS: BP_SYST 105
--- NOTE | 2019-09-29 09:50 | NUR ---
o2 sat o2 saturation 82%-79 on 15 liter. oral suction provided. o2 saturation increased to 92%. kept comfortable daugherty cath draining yellow color urine. will continue to monitor
[2019-09-29 12:54] VITALS: BP_SYST 109
--- NOTE | 2019-09-29 13:11 | NUR ---
Nutrition F/U note Short note d/t high patient load Patient seen earlier, IV infusing, NO EN infusing at time of RD visit. Per MD notes, 09/25, GJ tube for parenteral comfort medications if needed. With active EN support order. RD instructed RN to cancel EN order. Per RN, pt is awaiting bed at Hospice facility. JENIFFER, MADELINE
--- NOTE | 2019-09-29 13:18 | NUR ---
rounds pt resting comfortably. not in acute distress. no s/s of pain or distress noted. repositioned with pillow. will continue to monitor
--- NOTE | 2019-09-29 16:00 | NUR ---
ROUNDS pt resting comfortably. not in acute distress. NO secrations noted this time continue on morphine drip and ivf infusing well.no s/s of pain or distress noted. repositioned with pillow. will continue to monitor
[2019-09-29 16:56] VITALS: BP_SYST 117
--- NOTE | 2019-09-29 19:15 | NUR ---
OPENING NOTES RECEIVED PATIENT IN BED LETHARGIC. BREATHING TACHYPNEIC WITH RR ON THE 40'S ON NRM 15L. 02 SAT 96%. IVF INFUSING AND MORPHINE DRIP ORDERED. EDITH PICC LINE INTACT WITH DRESSING CLEAN AND DRY. BED IN LOWEST LOCKED POSITION WITH ALARM ON. HOB ELEVATED 30 DEGREES. PATIENT AWAITING HOSPICE BED FOR COMFORT MEASURES ONLY.
--- NOTE | 2019-09-29 19:25 | NUR ---
closing notes pt resting comfortably. not in acute distress. NO secrations noted this time continue on morphine drip and ivf infusing well.no s/s of pain or distress noted. repositioned with pillow. report given to night nurse
[2019-09-29 19:40] VITALS: BP_SYST 106
--- NOTE | 2019-09-29 21:30 | NUR ---
ROUNDS BREATHING THE SAME. 02 SAT 96-98%. CONTINUE TO PROVIDE COMFORT MEASURES.
--- NOTE | 2019-09-29 23:00 | NUR ---
ROUNDS CONDITION THE SAME. 02 SAT 94 - 97%.
[2019-09-30 00:34] VITALS: BP_SYST 105
--- NOTE | 2019-09-30 02:05 | NUR ---
ROUNDS 02 SAT 94%. MORPHINE DRIP AND IVF INFUSING ORDERED. HOB ELEVATED.
--- NOTE | 2019-09-30 02:45 | NUR ---
SUCTION PRODUCTIVE COUGH NOTED. ORAL SUCTIONING DONE WITH THICK YELLOW SECRETIONS LARGE AMOUNT.
[2019-09-30] MEDS: NACL 0.9% 1,000 ML IV SCH (04:33)
--- NOTE | 2019-09-30 06:10 | NUR ---
DESAT PATIENT 02 SAT 76% . SUCTIONED BY RT. 02 SAT UP TO 91-93%.
--- NOTE | 2019-09-30 07:24 | NUR ---
CLOSING NOTES PATIENT REMAINS LETHARGIC AND TACHYPNEIC ON 100% NRM. CONTINUE WITH COMFORT MEASURES. ENDORSED TO AM SHIFT.
--- NOTE | 2019-09-30 08:00 | NUR ---
Opening note patient resting in bed, eyes closed, breathing is labored and tachypneic, patient is on a non-rebreather mask at 100%, left upper arm PICC line is patent and infusing well, morphine drip running at this time at 2ml/hour, assessment complete, continuing to monitor the patient, bed in lowest position, three side rails up, bed alarm on, fall and aspiration precautions in place.
[2019-09-30 08:05] VITALS: BP_SYST 104
--- NOTE | 2019-09-30 10:30 | NUR ---
RN rounds patient resting in bed, breathing not as tachypneic as prior, Morphine drip infusing, attempted to suction patient, patient refusing to open his mouth, patient is intermittently coughing unable to mobilize secretions himself, continuing to monitor the patient, bed in lowest position, three side rails up, bed alarm on, fall and aspiration precautions in place.
--- NOTE | 2019-09-30 11:59 | NUR ---
RN rounds patient resting in bed, breathing not as tachypneic as prior, Morphine drip infusing, continuing to monitor the patient, bed in lowest position, three side rails up, bed alarm on, fall and aspiration precautions in place.
[2019-09-30 12:10] VITALS: BP_SYST 105
[2019-09-30] MEDS: MORPHINE PCA 50 mg/50 mL NS IV PRN (12:48)
--- NOTE | 2019-09-30 13:55 | NUR ---
Transfer of Care to July MUSA.
--- NOTE | 2019-09-30 14:30 | NUR ---
rounds rec patient and sleeping comfortably at this time. hob slightly elevated. pt was suctioned with small amount of thick secretion through his mouth . no sob noted.
[2019-09-30 16:08] VITALS: BP_SYST 124
--- NOTE | 2019-09-30 16:28 | NUR ---
Social Service Note: GERMINATION WORKER spoke with Radha at [facility] who states that they have contacted over 15 SNFs to try and find pt a bed. Radha states that she has also reached out to the [facility] for possible assistance with placement for pt.
--- NOTE | 2019-09-30 17:04 | NUR ---
rounds pt was suctioned and obtained large amount of thick secretions. no sob noted. turned repositioned for comfort. no sob noted.
--- NOTE | 2019-09-30 20:00 | NUR ---
OPENING NOTES RECEIVED PATIENT LETHARGIC AND TACHYPNEIC. RESPIRATIONS ON THE 40'S ON 100% NRM. FAMILY AT BEDSIDE. IVF AND MORPHINE DRIP INFUSING ORDERED. PATIENT REPOSITIONED AND SUCTIONED ORALLY WITH THICK YELLOW TO BLOOD TINGED SPUTUM. HOB ELEVATED 30 DEGREES. BED IN LOWEST LOCKED POSITION WITH ALARM ON.
[2019-09-30 20:07] VITALS: BP_SYST 107
--- NOTE | 2019-09-30 21:45 | NUR ---
SUCTION PATIENT SUCTIONED ORALLY WITH LARGE AMOUNT OF THICK YELLOW SECRETIONS. 02 SAT 93-95%.
--- NOTE | 2019-09-30 22:59 | NUR ---
SUCTION PATIENT WITH PRODUCTIVE COUGH. SUCTIONED ORALLY WITH LARGE AMOUNT OF YELLOW THICK SECRETIONS. HOB ELEVATED 30 DEGREES.
--- NOTE | 2019-10-01 00:30 | NUR ---
COUGH PATIENT COUGHING PRODUCTIVELY. SUCTIONED ORALLY WITH LARGE AMOUNT OF YELLOW THICK SECRETIONS.
[2019-10-01 02:16] VITALS: BP_SYST 129
--- NOTE | 2019-10-01 03:01 | NUR ---
ROUNDS BREATHING REMAINS TACHYPNEIC. 02 SAT 93%. SUCTIONED NEEDED. HOB ELEVATED 30 DEGREES.
[2019-10-01] MEDS: NACL 0.9% 1,000 ML IV SCH (03:53)
--- NOTE | 2019-10-01 04:58 | NUR ---
AM CARE AM CARE DONE. PATIENT CHUX CHANGED. ORAL CARE RENDERED. SUCTIONED ORALLY.
--- NOTE | 2019-10-01 06:26 | NUR ---
CLOSING NOTES PATIENT BREATHING REMAINS TACHYPNEIC. NEEDS FREQUENT SUCTIONING. IVF AND MORPHINE DRIP INFUSING ORDERED. CONTINUE WITH COMFORT MEASURES.
--- NOTE | 2019-10-01 07:00 | NUR ---
OPENING NOTES RECEIVED PT IN BED LETHARGIC AND TACHYPNEIC. RESPIRATIONS AT 24 BREATHS PER MINUTE. PT RECEIVING OXYGEN ORDERED THROUGH NONREBREATHER MASK. TOLERATING WELL. OXYGEN AT 95%. IV INTACT AND PATENT, NO SIGNS OF INFILTRATION. FLUIDS AND MORPHINE DRIP INFUSING ORDERED PER MD. TOLERATING WELL. MURPHY CATHETER INTACT AND PATENT, DRAINING WELL. J-TUBE INTACT AND PATENT. NO FEEDING GIVEN ORDERED PER MD. HOB ELEVATED AT 30 DEGREES. BED IN LOWEST AND LOCKED POSITION. BED ALARM. ALL NEEDS MET. CALL LIGHT IN REACH. FALL AND ASPIRATION PRECAUTIONS IN PLACE. CONTINUE TO MONITOR.
[2019-10-01 08:00] VITALS: BP_SYST 91
--- NOTE | 2019-10-01 09:00 | NUR ---
ROUNDS PT LETHARGIC AND TACHYPNEIC. RESPIRATIONS AT 22 BPM. PT RECEIVING OXYGEN SUPPLEMENT ORDERED THROUGH NONREBREATHER MASK PER MD. OXYGEN AT 94%. ALL NEEDS MET. CALL LIGHT IN REACH. FALL AND ASPIRATION PRECAUTIONS IN PLACE. CONTINUE TO MONITOR.
--- NOTE | 2019-10-01 11:00 | NUR ---
NASAL AND MOUTH SUCTIONING NASAL AND MOUTH SUCTIONING DONE. TOLERATED WELL. OXYGEN AT 98%. ALL NEEDS MET. CALL LIGHT IN REACH. CONTINUE TO MONITOR.
--- NOTE | 2019-10-01 12:30 | NUR ---
note MORPHINE DIRECTOR OF INTERCOLLEGIATE ATHLETICS NOT AVAILABLE. CALLED PHARMACY FOR MEDICATION, SPOKE TO ADAM. AWAITING FOR MEDICATION.
[2019-10-01 12:38] VITALS: BP_SYST 102
[2019-10-01] MEDS ORDERED: fentaNYL 25 MCG/HR PATCH TD SCH (13:45)
--- NOTE | 2019-10-01 13:45 | NUR ---
NOTE MORPHINE OUTBOUND TELEMARKETER STILL NOT AVAILABLE. CALLED PHARMACY FOR MEDICATION, SPOKE TO ADAM. AWAITING FOR MEDICATION. PATIENT IS STABLE. NO FACIAL GRIMACING NOTED. VITAL SIGN STABLE. REPOSITIONED FOR COMFORT. CONTINUE TO MONITOR
--- NOTE | 2019-10-01 14:30 | NUR ---
NOTE CALLED PHARMACY REGARDING MORPHINE PODIATRIC PHYSICIAN; MEDICATION NOT AVAILABLE. AWAITING ON PHARMACY FOR MEDICATION
--- NOTE | 2019-10-01 14:40 | NUR ---
WOUND CARE DONE WOUND CARE DONE ORDERED PER MD. TOLERATED WELL. NO ACUTE DISTRESS NOTED. ALL NEEDS MET. CALL LIGHT IN REACH. HOB ELEVATED. CONTINUE TO MONITOR.
[2019-10-01 15:30] VITALS: BP_SYST 97
[2019-10-01] MEDS: MORPHINE 2 MG/ML INJ. SYRINGE IVP PRN ×3 (15:35→17:42)
--- NOTE | 2019-10-01 15:35 | NUR ---
MS PATIENT WILL BE PICKED UP AT 1730. SPOKE TO FARIDA IN PHARMACY. FARIDA RECOMMENDS TO ADMINISTER MORPHINE IVP DUE TO MORPHINE EMERGING TECHNOLOGIES DIRECTOR NOT MIXED YET. PATIENT IS STABLE. VITAL SIGN STABLE. NO S/SX FACIAL GRIMACING. MORPHINE IVP ADMINISTERED ORDERED, TARI WELL. ALL NEEDS MET. CONT TO MONITOR. CALL LIGHT IN REACH
--- NOTE | 2019-10-01 15:53 | NUR ---
REPORT GIVEN TO DIMPLE QUEZADA FROM [facility] FOR TRANSFER.
[2019-10-01 16:03] VITALS: BP_SYST 100
--- NOTE | 2019-10-01 16:05 | NUR ---
SPOKE TO MOTHER, BAYRON [phone] ABOUT TRANSFER. RECEIVED CONSENT VIA TELEPHONE WITH WITNESS DIMPLE CANTU.
--- NOTE | 2019-10-01 17:20 | NUR ---
note PARENTS AT BEDSIDE WAITING FOR PATIENT TO BE PICKED UP TO BE TRANSFERRED. PATIENT IS STABLE. SUCTIONED PRN, TOLERATED WELL. HOB UP. NO ACUTE DISTRESS. REPOSITIONED FOR COMFORT. ALL NEEDS MET. CONT TO MONITOR WITH FREQUENT VISUAL CHECK. CALL LIGHT IN REACH
--- NOTE | 2019-10-01 18:43 | NUR ---
PT TRANSFERRED Report given to DAMIEN MUSA AT [facility]. Transfer packet with Transfer Orders and Medication Reconciliation form given to EMT with report. Exitcare provided. [facility] ID band removed, replaced with ID band with pt's name and . PICC LINE removed, catheter intact and dressing applied, no active bleeding. All belongings sent with patient. Patient left floor via gurney escorted by EMT in no distress. Parents followed EMT.
--- NOTE | 2019-10-02 10:26 | NUR ---
Discharged Late note. Patient was discharge 10/01/19 to [facility] under [facility] care.
== END 2019-10-01 18:40 | disposition hospice, home (50) | DRG 870 ==
LOC: SED 08:55 → STU 12:35 → SIC 08-29 20:38 → STU 09-15 15:54
PROVIDERS: ADMIT Internal Medicine; ATTEND Internal Medicine
PROC: 5A09457 Assistance with Respiratory Ventilation, 24-96 Consecutive Hours, Continuous Positive Airway Pressure (ICD-10-PCS; 2019-08-29)
PROC: 02HV33Z Insertion of Infusion Device into Superior Vena Cava, Percutaneous Approach (ICD-10-PCS; 2019-08-30)
PROC: B548ZZA Ultrasonography of Superior Vena Cava, Guidance (ICD-10-PCS; 2019-08-30)
PROC: 5A1955Z Respiratory Ventilation, Greater than 96 Consecutive Hours (ICD-10-PCS; principal; 2019-08-31)
PROC: 0BH17EZ Insertion of Endotracheal Airway into Trachea, Via Natural or Artificial Opening (ICD-10-PCS; 2019-08-31)
PROC: 0DH63UZ Insertion of Feeding Device into Stomach, Percutaneous Approach (ICD-10-PCS; 2019-09-04)
PROC: 0DB68ZX Excision of Stomach, Via Natural or Artificial Opening Endoscopic, Diagnostic (ICD-10-PCS; 2019-09-04)
PROC: 0DHA0UZ Insertion of Feeding Device into Jejunum, Open Approach (ICD-10-PCS; 2019-09-23)
DX: A41.9 Sepsis, unspecified organism (principal); J69.0 Pneumonitis due to inhalation of food and vomit; J96.00 Acute respiratory failure, unspecified whether with hypoxia or hypercapnia; R65.21 Severe sepsis with septic shock; E43 Unspecified severe protein-calorie malnutrition; J15.6 Pneumonia due to other Gram-negative bacteria; E44.0 Moderate protein-calorie malnutrition; E87.2 Acidosis; J90 Pleural effusion, not elsewhere classified; N13.6 Pyonephrosis; Z99.11 Dependence on respirator [ventilator] status; G93.40 Encephalopathy, unspecified; D69.59 Other secondary thrombocytopenia; E03.9 Hypothyroidism, unspecified; E86.0 Dehydration; E87.6 Hypokalemia; I10 Essential (primary) hypertension; Z51.5 Encounter for palliative care; R13.12 Dysphagia, oropharyngeal phase; D69.6 Thrombocytopenia, unspecified; G80.9 Cerebral palsy, unspecified; B96.4 Proteus (mirabilis) (morganii) as the cause of diseases classified elsewhere; K44.9 Diaphragmatic hernia without obstruction or gangrene; D64.9 Anemia, unspecified; K29.60 Other gastritis without bleeding; K66.0 Peritoneal adhesions (postprocedural) (postinfection); K80.20 Calculus of gallbladder without cholecystitis without obstruction; I34.0 Nonrheumatic mitral (valve) insufficiency; Z66 Do not resuscitate; Z68.27 Body mass index [BMI] 27.0-27.9, adult; Z74.01 Bed confinement status; Z79.899 Other long term (current) drug therapy; K75.89 Other specified inflammatory liver diseases
CPT/HCPCS: 36415; 36600; 43239; 71045; 71250-TC; 74018; 76700-TC; 78226; 80048; 80053; 80076; 81000-TC; 82803-TC; 82962; 83605; 83735-TC; 83880; 84100-TC; 84311; 84443-TC; 84484; 85007; 85025; 85027; 85610-TC; 85730-TC; 86738; 87040-TC; 87045-TC; 87046; 87070-TC; 87081; 87086; 87186-TC; 87205-TC; 87230-TC; 88305; 88312; 88313; 92610-GN; 93005; 93306; 94002; 94003; 94640; 94660; 94668; 94760; 96365; 99291; A6209; A9537; C1751; C9290; G0378; J0690; J0692; J0696; J1030; J1170; J1265; J1650; J1940; J1956; J2060; J2175; J2185; J2250; J2270; J2543; J2704; J2710; J3010; J3370; J3480; J3490; J7030; J7040; J7042; J7050; J7060; J7120; J7620; J8597